=== PATIENT | male | born 1955 | race American Indian/Alaskan Native ===

== ENCOUNTER 2016-10-27 12:02 | Inpatient (IN) | payer OTHER ==
[2016-10-27] MEDS ORDERED: SODIUM CHLORIDE 0.9% 500 ML INFUS.BAG IV ONE ×3 (12:36→15:22)
--- NOTE | 2016-10-27 12:43 | PDOC ---
History of Present Illness - General History Source: Patient, Family Exam Limitations: No Limitations - History of Present Illness Initial Comments: 10/27/16 12:57 The patient is a 61-year-old man, accompanied by family with a significant past medical history of hypertension, hypercholesterolemia, coronary artery disease, diabetes mellitus, benign prostate hyperplasia, recently diagnosed with colon Ca s/p recent low anterior rectosigmoid colon resection, for colon cancer, done 10/14/[address] [facility], [place]; now has a diverting colostomy who presents to the emergency department for further evaluation of loss of consciousness. As per patient's family, the patient has been noted to have a decreased appetite and lethargic for the past three days. Patient fell off his bed last night and lost consciousness. No head injury. While getting ready for a follow-up appointment, this morning, he lost consciousness while walking down the stairs. Patient proceeded to go to his appointment with his surgeon, where he had carmel and Abad-Henley drain removed, however the patient lost consciousness again during his appointment. He was able to go home with his family. As per patient, he experiences slight abdominal discomfort, nausea and vomiting and heartburn only when vomiting. He denies blood in his episodes of emesis and in his colostomy bag. He also states that his colostomy bag has been functioning. No recent fever, chills. He denies chest pain, cough, shortness of breath, headache. Allergies: None Known Pas Surgical History: Stent placement x2. Colon Ca resection. Social History: No tobacco, ETOH and recreational drug use. Primary Care Physician: Dr. Elliott Parham [phone] Remainder of the review of systems is negative. <Christina Mcduffie - Last Filed: 10/27/16 14:25> <Iris Bryan - Last Filed: 10/27/16 19:58> - General Chief Complaint: Syncope/Near Syncope Stated Complaint: DEHYDRATIONL, WEAKNESS Time Seen by Provider: 10/27/16 12:25 Past History <Christina Mcduffie - Last Filed: 10/27/16 14:25> - Past Medical History Cancer: Yes (COLON CA) Cardiac Disorders: Yes (CAD) HTN: Yes Hypercholesterolemia: Yes Other medical history: BPH - Surgical History Abdominal Surgery: Yes (COLON CA RESECTION) Cardiac Surgery: Yes (STENT X 2) - Psycho/Social/Smoking Cessation Hx Anxiety: No Suicidal Ideation: No Smoking History: Never smoked Have you smoked in the past 12 months: No Information on smoking cessation initiated: No Hx Alcohol Use: No Drug/Substance Use Hx: No Substance Use Type: None <Iris Bryan - Last Filed: 10/27/16 19:58> - Past Medical History Allergies/Adverse Reactions: Allergies Allergy/AdvReac Type Severity Reaction Status Date / Time No Known Allergies Allergy Verified 10/27/16 12:13 Home Medications: Ambulatory Orders Atorvastatin Ca [Lipitor] 40 mg PO HS 10/27/16 Carvedilol [Coreg] 12.5 mg PO BID 10/27/16 Linagliptin/Metformin HCl [Jentadueto 2.5 mg-850 mg Tab] 1 each PO BID 10/27/16 Olmesartan/Amlodipin/Hcthiazid [Tribenzor 20-5-12.5 mg Tablet] 1 each PO DAILY 10/27/16 Pilocarpine 0.5% [Pilostat 0.5% -] 1 drop OP TID 10/27/16 Silodosin [Rapaflo] 8 mg PO DAILY 10/27/16 Review of Systems - Review of Systems Able to Perform ROS?: Yes Comments:: 10/27/16 12:57 12 point review of systems is as per history of present illness and otherwise negative. <Christina Mcduffie - Last Filed: 10/27/16 14:25> *Physical Exam - Vital Signs Last Vital Signs Temp Pulse Resp BP Pulse Ox 98.0 F 80 18 87/47 100 10/27/16 12:15 10/27/16 12:15 10/27/16 12:15 10/27/16 12:15 10/27/16 12:15 <Christina Mcduffie - Last Filed: 10/27/16 14:25> - Vital Signs Last Vital Signs Temp Pulse Resp BP Pulse Ox 98.0 F 80 18 87/47 100 10/27/16 12:15 10/27/16 12:15 10/27/16 12:15 10/27/16 12:15 10/27/16 12:15 - Physical Exam Comments: 10/27/16 12:39 Physical exam Last Vital Signs Temp Pulse Resp BP Pulse Ox 98.0 F 80 18 87/47 100 10/27/16 12:15 10/27/16 12:15 10/27/16 12:15 10/27/16 12:15 10/27/16 12:15 GENERAL: The patient is awake, alert, and appears very dehydrated HEAD: Normal with no signs of trauma. EYES: Sclera anicteric ENT: Mucous membranes are very dry NECK: Normal range of motion, supple LUNGS: Breath sounds equal, clear to auscultation bilaterally. No wheezes, and no crackles. HEART: Regular rate and rhythm, normal S1 and S2 without murmur, rub or gallop. ABDOMEN: The abdomen is soft, with normal bowel sounds There is a healing surgical scar, and a right sided colostomy The abdomen is completely soft and nontender EXTREMITIES: Normal range of motion, no edema. No clubbing or cyanosis. No cords, erythema, or tenderness. There is no calf tenderness or swelling NEUROLOGICAL: Cranial nerves II through XII grossly intact. Normal speech, normal gait. PSYCH: Normal mood, normal affect. SKIN: Warm, Dry, normal turgor, no rashes or lesions noted. <Iris Bryan - Last Filed: 10/27/16 19:58> ED Treatment Course - LABORATORY CBC & Chemistry Diagram: 10/27/16 12:50 10/27/16 12:50 - ADDITIONAL ORDERS Additional order review: 10/27/16 12:50 RBC 5.05 MCV 77.7 L MCHC 32.8 RDW 16.1 H MPV 7.6 - Medications Given in the ED: ED Medications Discontinued Medications Generic Name Dose Route Start Last Admin Trade Name Freq PRN Reason Stop Dose Admin Sodium Chloride 1,000 ml 10/27/16 12:36 10/27/16 12:46 Normal Saline - IV 10/27/16 12:37 1,000 ml ONCE ONE Administration <Christina Mcduffie - Last Filed: 10/27/16 14:25> - LABORATORY CBC & Chemistry Diagram: 10/27/16 16:27 10/27/16 16:27 - RADIOLOGY Radiology Studies Ordered: Category Date Time Status CHEST X-RAY PORTABLE* [RAD] Stat Radiology 10/27/16 12:36 Ordered <Iris Bryan - Last Filed: 10/27/16 19:58> Medical Decision Making - Critical Care Time Total Critical Care Time (minutes): 45 Critical Care Statement: The care of this patient involved high complexity decision making to prevent further life threatening deterioration of the patient 's condition and/or to evalute & treat vital organ system(s) failure or risk of failure. - Medical Decision Making 10/27/16 12:37 64-year-old male PMH DM, HTN, HPL, had a low anterior rectosigmoid colon resection, for colon cancer, done 10/14/16, and he now has a diverting colostomy He did well post surgery, however since Wednesday, he has not been eating or drinking, and he has been vomiting whenever he tries to eat or drink He is passing stool in the colostomy bag He passed out last night, and he was in his surgeon's office today (he had his carmel removed, and had a Abad-Henley drain removed), and passed out in the doctor's office today He feels very dehydrated He has been vomiting, without blood or black tarry vomitus There is no blood in his colostomy bag He states that he just feels nauseated and has been unable to eat or drink He denies any abdominal pain, he denies any chest pain He has had some heartburn He denies any fevers or chills He denies any other complaints time 10/27/16 12:43 Patient appears extremely dehydrated, and is hypotensive He is not tachycardic, most likely because he is on a beta akilah 10/27/16 13:50 Laboratory Results - last 24 hr 10/27/16 10/27/16 10/27/16 12:50 12:50 12:50 WBC 12.9 H RBC 5.05 Hgb 12.9 Hct 39.3 MCV 77.7 L MCHC 32.8 RDW 16.1 H Plt Count 376 MPV 7.6 Sodium 123 L* Potassium 5.4 H Chloride 74 L Carbon Dioxide 24 Anion Gap 26 H BUN 72 H Creatinine 12.7 H* Creat Clearance w eGFR 4.04 Random Glucose 133 H Calcium 9.6 Magnesium 2.2 Total Bilirubin 0.5 AST 17 ALT 36 Alkaline Phosphatase 110 Creatine Kinase 90 Troponin I < 0.02 B-Natriuretic Peptide 115.81 Total Protein 8.9 H Albumin 4.0 Lipase 510 H 10/27/16 13:54 Patient in acute renal failure, with BUN 72/creatinine 12.7, with probably prerenal component to that Also lipase elevated, will check an ultrasound of the right upper quadrant and kidney/bladder ultrasound Potassium 5.4, mag 2.2 Lactic acid and serum acetone pending 10/27/16 13:56 Chest x-ray-NAD EKG Normal sinus rhythm 81, normal axis Normal AV and IV conduction time Prolonged QT, with a QTC of 485 Somewhat peaked T waves Nonspecific ST-T s There is no old EKG available for comparison at this time 10/27/16 14:15 case d/w with hospitalist-will admit ICU 10/27/16 14:20 Concerned that pts new AODM med in conjunction with dehydration and pre-renal azotemia my have contributed to the ARF 10/27/16 15:21 Lactic acid 5.0 2Liters of saline in,will continue third liter 10/27/16 15:54 CT scan of the abdomen and pelvis without contrast No signs of bowel obstruction no free air or free fluid No evidence of appendicitis diverticulitis or colitis Normal region of colostomy Mild distention of stomach with fluid in the stomach, and no signs of gastric outlet obstruction or gastric wall thickening There is fluid in the third portion of the duodenum, with no signs of heart regular and all infiltration Ultrasound No hydronephrosis in the kidneys There is a shadowing calcified stone There is a cyst Normal gallbladder Pancreas obscured by overlying gas and not visualized Saldivar catheter placed-tiny amount of urine in Saldivar Case discussed with Dr. Kumari, accepts patient to ICU Dr. Belle-nephrology paged Patient now on third liter of normal saline-will repeat lactic acid Nephrology at bedside, hospitalist at bedside will admit ICU, will need repeat lactic acid and repeat bloodwork <Iris Bryan - Last Filed: 10/27/16 19:58> *DC/Admit/Observation/Transfer - Attestations Scribe Attestion: 10/27/16 12:57 Documentation prepared by Christina Mcduffie, acting as medical management trainer for Iris Bryan MD. <Christina Mcduffie - Last Filed: 10/27/16 14:25> - Discharge Dispostion Admit: Yes <Iris Bryan - Last Filed: 10/27/16 19:58> Diagnosis at time of Disposition: Acute renal failure, Dehydration, Hyponatremia, Acidosis - Referrals
[2016-10-27 12:55] LABS: MCH 25.5 pg (25.7-33.7); MCHC 32.8 g/dl (32.0-35.9); MEAN CELL VOLUME 77.7 fl (80-96); MEAN PLT VOLUME 7.6 fl (7.5-11.1); PLATELET COUNT 376 K/MM3 (134-434); RDW 16.1 % (11.9-15.9); WHITE BLOOD COUNT 12.9 K/mm3 (4.0-10.0)
[2016-10-27 13:14] LABS: ANION GAP 26 (8-16); BILIRUBIN,TOTAL 0.5 mg/dL (0.2-1.0); CALCIUM 9.6 mg/dL (8.5-10.1); CO2 24 mmol/L (21-32); GLUCOSE,RANDOM 133 mg/dL (74-106); MAGNESIUM 2.2 mg/dL (1.8-2.4); SGOT/AST 17 U/L (15-37); SGPT/ALT 36 U/L (12-78); TOT PROT 8.9 g/dl (6.4-8.2)
[2016-10-27 13:20] LABS: ALK PHOS 110 U/L (45-117); TROPONIN I < 0.02 ng/ml (0.00-0.05)
[2016-10-27] MEDS ORDERED: ONDANSETRON 4 MG/2 ML VIAL ONE (13:30)
[2016-10-27] MEDS ORDERED: FAMOTIDINE 20 MG/50 ML IVPB 50 ML IVPB ONE ×2 (13:30→13:35)
[2016-10-27] MEDS ORDERED: ONDANSETRON 4 MG/2 ML VIAL IVPB ONE (13:35)
[2016-10-27 13:47] LABS: CREATININE 12.7 mg/dL (0.7-1.3)
--- NOTE | 2016-10-27 15:37 | EKG ---
Test Reason : Blood Pressure : / mmHG Vent. Rate : 081 BPM Atrial Rate : 081 BPM P-R Int : 160 ms QRS Dur : 084 ms QT Int : 418 ms P-R-T Axes : 050 038 070 degrees QTc Int : 485 ms NORMAL SINUS RHYTHM PROLONGED QT ABNORMAL ECG NO PREVIOUS ECGS AVAILABLE Confirmed by DOMENIC CHAPA MD ([id number]) on 10/27/2016 3:36:48 PM Referred By: Confirmed By:DOMENIC CHAPA MD
[2016-10-27 16:07] LABS: URINE APPEARANCE CLEAR; URINE BILIRUBIN 2+ (NEGATIVE); URINE BLOOD 2+ (NEGATIVE); URINE COLOR YELLOW; URINE GLUCOSE (UA) TRACE (NEGATIVE); URINE KETONE TRACE (NEGATIVE); URINE LEUK ESTERASE TRACE (NEGATIVE); URINE NITRITE NEGATIVE (NEGATIVE); URINE PROTEIN 2+ (NEGATIVE); URINE UROBILINOGEN 0.2 E.U/dl E.U./dl (0.2-1.0)
--- NOTE | 2016-10-27 16:26 | PN ---
Progress Note, Physician - Objective Vital Signs: Vital Signs Temperature 98.6 F 10/27/16 15:29 Pulse Rate 90 10/27/16 15:29 Respiratory Rate 20 10/27/16 15:29 Blood Pressure 102/67 10/27/16 15:29 O2 Sat by Pulse Oximetry (%) 100 10/27/16 15:29
--- NOTE | 2016-10-27 16:33 | PN ---
Teaching Attending Note Name of Resident: Stephen Elliott ATTENDING PHYSICIAN STATEMENT I saw and evaluated the patient. I reviewed the resident's note and discussed the case with the resident. I agree with the resident's findings and plan as documented. SUBJECTIVE: 61 M, recent rectosigmoid resection 10/14/16 at [facility] for Adenocarcinoma of the colon (+ LN). Additional history of hypertension, hypercholesterolemia, coronary artery disease, diabetes mellitus, and benign prostate hyperplasia. According to the family, patient "lowered himself to the ground from his bed" on Wednesday. He pre-syncopal in his doctors office earlier today. His family placed him in their car and drove him to the ER. Reports no urine output for almost 2 days. No travel history or sick contacts. Poor oral intake. Has been vomiting. No diarrhea. Intake & Output 10/24/16 10/25/16 10/26/16 10/27/16 23:59 23:59 23:59 23:59 Output Total 5 Balance -5 Weight 155 lb Last Vital Signs Temp Pulse Resp BP Pulse Ox 98.6 F 90 20 102/67 100 10/27/16 15:29 10/27/16 15:29 10/27/16 15:29 10/27/16 15:29 10/27/16 15:29 GENERAL: Awake, alert, NAD HEAD: Normal with no signs of trauma. EYES: Sclera anicteric ENT: Mucous membranes are very dry NECK: Normal range of motion, supple LUNGS: Clear to auscultation bilaterally. HEART: Regular rate and rhythm, normal S1 and S2 without murmur. ABDOMEN: Soft, (+) BS, well healing surgical scar, and a right sided colostomy EXTREMITIES: No edema. NEUROLOGICAL: Non-focal PSYCH: Normal mood, normal affect. SKIN: Warm, Dry, no rashes or lesions noted. Laboratory Results - last 24 hr 10/27/16 10/27/16 10/27/16 12:15 12:50 12:50 WBC 12.9 H RBC 5.05 Hgb 12.9 Hct 39.3 MCV 77.7 L MCHC 32.8 RDW 16.1 H Plt Count 376 MPV 7.6 Sodium 123 L* Potassium 5.4 H Chloride 74 L Carbon Dioxide 24 Anion Gap 26 H BUN 72 H Creatinine 12.7 H* Creat Clearance w eGFR 4.04 Random Glucose 133 H Lactic Acid 5.070 H* Calcium 9.6 Magnesium Total Bilirubin 0.5 AST 17 ALT 36 Alkaline Phosphatase 110 Creatine Kinase 90 Troponin I < 0.02 B-Natriuretic Peptide Total Protein 8.9 H Albumin 4.0 Lipase Urine Color Urine Appearance Urine pH Ur Specific [place] Urine Protein Urine Glucose (UA) Urine Ketones Urine Blood Urine Nitrite Urine Bilirubin Urine Urobilinogen Ur Leukocyte Esterase Ur Random Sodium Ur Random Potassium Ur Random Chloride Acetone, Qual 10/27/16 10/27/16 10/27/16 12:50 13:38 16:00 WBC RBC Hgb Hct MCV MCHC RDW Plt Count MPV Sodium Potassium Chloride Carbon Dioxide Anion Gap BUN Creatinine Creat Clearance w eGFR Random Glucose Lactic Acid Calcium Magnesium 2.2 Total Bilirubin AST ALT Alkaline Phosphatase Creatine Kinase Troponin I B-Natriuretic Peptide 115.81 Total Protein Albumin Lipase 510 H Urine Color Yellow Urine Appearance Clear Urine pH 5.0 Ur Specific [place] >= 1.030 Urine Protein 2+ H Urine Glucose (UA) Trace H Urine Ketones Trace H Urine Blood 2+ H Urine Nitrite Negative Urine Bilirubin 2+ H Urine Urobilinogen 0.2 e.u/dl Ur Leukocyte Esterase Trace H Ur Random Sodium Ur Random Potassium Ur Random Chloride Acetone, Qual Negative 10/27/16 16:00 WBC RBC Hgb Hct MCV MCHC RDW Plt Count MPV Sodium Potassium Chloride Carbon Dioxide Anion Gap BUN Creatinine Creat Clearance w eGFR Random Glucose Lactic Acid Calcium Magnesium Total Bilirubin AST ALT Alkaline Phosphatase Creatine Kinase Troponin I B-Natriuretic Peptide Total Protein Albumin Lipase Urine Color Urine Appearance Urine pH Ur Specific [place] Urine Protein Urine Glucose (UA) Urine Ketones Urine Blood Urine Nitrite Urine Bilirubin Urine Urobilinogen Ur Leukocyte Esterase Ur Random Sodium 23 Ur Random Potassium 17.6 Ur Random Chloride 15 Acetone, Qual PLAN: Aggressive IVF -> I suspect severe hypovolemic shock rather than infectious/ sepsis Follow lactic acid level Strict I&O O2 as needed PO as tolerated Check orthostatics VTE prophylaxis Would monitor off ABX for now as there is no clear source or indication of an infectious process ICU monitoring Thank you. Dr Kumari CCTime 35" Problem List - Problems (1) Acidosis Code(s): E87.2 - ACIDOSIS (2) Acute renal failure Code(s): N17.9 - ACUTE KIDNEY FAILURE, UNSPECIFIED (3) Dehydration Code(s): E86.0 - DEHYDRATION (4) Hyponatremia Code(s): E87.1 - HYPO-OSMOLALITY AND HYPONATREMIA (5) Colon cancer Code(s): C18.9 - MALIGNANT NEOPLASM OF COLON, UNSPECIFIED
--- NOTE | 2016-10-27 16:34 | CONSULT ---
Consult Consult Specialty:: Pulm/CCM Referred by:: ED Reason for Consultation:: hypotension/acute renal failure - History of Present Illness Chief Complaint: nausea vomiting anuria History of Present Illness: 61M with daughter and PMH HTN CAD s/p stent x2 DM BPH HLD colon ca s/p low anterior resection on 10/14/2016 at [facility] with as diverting colostomy with plans to reverse him in 6 months presents to the ED with a chief complaint of nausea vomiting diarrhea. now has a diverting colostomy who presents to the emergency department for further evaluation of faainting. As per patient's family, the patient has been noted to have a decreased appetite and lethargic for the past three days. Patient fell off his bed last night and lost consciousness. No head injury. While getting ready for a follow-up appointment, this morning, he lost consciousness while walking down the stairs. Patient proceeded to go to his appointment with his surgeon, where he had carmel and Abad-Henley drain removed, however the patient lost consciousness again during his appointment. He was able to go home with his family. As per patient, he experiences slight abdominal discomfort, nausea and vomiting and heartburn only when vomiting. He denies blood in his episodes of emesis and in his colostomy bag. He also states that his colostomy bag has been functioning with good output and is mostly solid. No recent fever, chills. He denies chest pain, cough, shortness of breath, headache. He states he has had good oral intake with solid food but not with liquids. He states he has not urinated for 2 days. In ED patient noted to be in acute renal failure hyponatremic and hyperkalemic Allergies: None Known Pas Surgical History: Stent placement x2. Colon Ca resection. Social History: No tobacco, ETOH and recreational drug use. Primary Care Physician: Dr. Elliott Parham [phone] - History Source History Provided By: Patient, Family Member, Medical Record Limitations to Obtaining History: No Limitations - Past Medical History Cardio/Vascular: Yes: CAD, HTN, Hyperlipdemia Gastrointestinal: Yes: Other (GI cancer ) Renal/: Yes: BPH Endocrine: Yes: Diabetes Mellitus - Past Surgical History Past Surgical History: Yes: Colostomy (low anterior resection ) - Alcohol/Substance Use Hx Alcohol Use: No - Smoking History Smoking history: Never smoked Have you smoked in the past 12 months: No Home Medications - Allergies Allergies/Adverse Reactions: Allergies Allergy/AdvReac Type Severity Reaction Status Date / Time No Known Allergies Allergy Verified 10/27/16 12:13 - Home Medications Home Medications: Ambulatory Orders Atorvastatin Ca [Lipitor] 40 mg PO HS 10/27/16 Carvedilol [Coreg] 12.5 mg PO BID 10/27/16 Linagliptin/Metformin HCl [Jentadueto 2.5 mg-850 mg Tab] 1 each PO BID 10/27/16 Olmesartan/Amlodipin/Hcthiazid [Tribenzor 20-5-12.5 mg Tablet] 1 each PO DAILY 10/27/16 Pilocarpine 0.5% [Pilostat 0.5% -] 1 drop OP TID 10/27/16 Silodosin [Rapaflo] 8 mg PO DAILY 10/27/16 Family Disease History - Family Disease History Family History: Denies Review of Systems - Review of Systems Constitutional: reports: No Symptoms Eyes: reports: No Symptoms HENT: reports: No Symptoms Neck: reports: No Symptoms Cardiovascular: reports: No Symptoms Respiratory: reports: No Symptoms Gastrointestinal: reports: Abdominal Pain, Vomiting Musculoskeletal: reports: No Symptoms Integumentary: reports: No Symptoms Neurological: reports: Syncope Physical Exam Vital Signs: Vital Signs Temperature 98.6 F 10/27/16 15:29 Pulse Rate 90 10/27/16 15:29 Respiratory Rate 20 10/27/16 15:29 Blood Pressure 102/67 10/27/16 15:29 O2 Sat by Pulse Oximetry (%) 100 10/27/16 15:29 Constitutional: Yes: Well Nourished, Calm Eyes: Yes: Conjunctiva Clear HENT: Yes: Atraumatic, Normocephalic Neck: Yes: Supple, Trachea Midline, Other (dry mucous membranes) Cardiovascular: Yes: Regular Rate and Rhythm Respiratory: Yes: Regular, CTA Bilaterally Gastrointestinal: Yes: Normal Bowel Sounds, Soft, Other (appropriate incisional tenderness otherwise soft. ostomy pink and patent on digital exam. ostomy visibly functioning) Renal/: Yes: Anuria, Other (no urine in lópez) Edema: No ...Motor Strength: WNL Imaging - Results Chest X-ray: Report Reviewed, Image Reviewed Cat Scan: Report Reviewed, Image Reviewed Ultrasound: Report Reviewed, Image Reviewed EKG: Report Reviewed, Image Reviewed Problem List - Problems (1) Acute renal failure Assessment/Plan: likely secondary to severe dehydration Nephrology consult hold nephrotoxic drugs such as MARICARMEN/ARB renally dose all medications fluids Code(s): N17.9 - ACUTE KIDNEY FAILURE, UNSPECIFIED (2) Colon cancer Assessment/Plan: s/p low anterior resection being followed by surgeon and seen today by her. no active issues Code(s): C18.9 - MALIGNANT NEOPLASM OF COLON, UNSPECIFIED Qualifiers: Colon location: sigmoid Qualified Code(s): C18.7 - Malignant neoplasm of sigmoid colon (3) Dehydration Assessment/Plan: will need fluid boluses patient is anuric at this time from a combination of renal failure and dehydration maintenance fluids recheck BMP Code(s): E86.0 - DEHYDRATION (4) Hyponatremia Assessment/Plan: getting normal saline not to increase sodium by 0.5 meq/hr or >10meq in 24 hrs recheck BMP Code(s): E87.1 - HYPO-OSMOLALITY AND HYPONATREMIA (5) Lactic acid acidosis Assessment/Plan: trend lactate fluid boluses Code(s): E87.2 - ACIDOSIS (6) High anion gap metabolic acidosis Assessment/Plan: recheck BMP correct lactic acidosis Code(s): E87.2 - ACIDOSIS (7) Hyperkalemia, diminished renal excretion Assessment/Plan: likely from renal failure recheck BMP may need hyperkalemia cocktail Code(s): E87.5 - HYPERKALEMIA (8) Hypertension Assessment/Plan: likely from renal failure repeat BMP pending may need hyperkalemia cocktail Code(s): I10 - ESSENTIAL (PRIMARY) HYPERTENSION Qualifiers: Hypertension type: essential hypertension Qualified Code(s): I10 - Essential (primary) hypertension (9) Hyperlipidemia Assessment/Plan: restart statin when safe Code(s): E78.5 - HYPERLIPIDEMIA, UNSPECIFIED Qualifiers: Hyperlipidemia type: unspecified Qualified Code(s): E78.5 - Hyperlipidemia, unspecified (10) Diabetes Assessment/Plan: BG ACHS ISS hold metformin Code(s): E11.9 - TYPE 2 DIABETES MELLITUS WITHOUT COMPLICATIONS Qualifiers: Diabetes mellitus type: type 2
[2016-10-27 16:37] LABS: URINE RBC 4 /hpf (0-3); URINE WBC 29 /hpf (3-5)
[2016-10-27 16:41] LABS: BASOPHIL 1.4 % (0-2.0); EOSINOPHIL 0.1 % (0-4.5); MCH 25.4 pg (25.7-33.7); MCHC 32.7 g/dl (32.0-35.9); MEAN CELL VOLUME 77.7 fl (80-96); MEAN PLT VOLUME 7.5 fl (7.5-11.1); NEUTROPHILS 69.1 % (42.8-82.8); PLATELET COUNT 315 K/MM3 (134-434); RDW 16.2 % (11.9-15.9); WHITE BLOOD COUNT 10.1 K/mm3 (4.0-10.0)
--- NOTE | 2016-10-27 17:01 | HP ---
CHIEF COMPLAINT: Syncope, Dehydration, Weakness PCP: Elliott Parham HISTORY OF PRESENT ILLNESS: This patient is a 61 year old male, with PMH of hypertension, hypercholesterolemia, coronary artery disease, diabetes mellitus, benign prostate hyperplasia, recently diagnosed with colon CA s/p low anterior rectosigmoid colon resection (10/14/16) at [facility]. Presented to the ED after three syncopal episode: (1) at home the patient fell off his bed, (2) while walking down the stairs on his way to his follow up appointment, and (3) at his surgical followup today when he had his carmel and ASHKAN drain removed. His surgical MD advised the family to take him to the ED. Family stated patient was eating, had good appetite and colostomy bag was functioning after discharged home from surgery however, appetite has significantly decreased starting on Wednesday (10/24/16) four days ago. Pt reports since he has not been eating or drinking, he experiences slight abdominal discomfort, nausea and heartburn, denies blood in emesis or colostomy bag. Patient states he has not urinated for 2 days ER course was notable for: (1) BUN: 72, Cr: 12.7, no urine output after lópez placement, consult at bedside. (2) URINE WBC 29, Ceftriaxone ordered (3) EMS reported blood pressure 87/47 on arrival, 3 Liters of Normal Saline given, BP improved to 102/67. Recent Travel: no travel history or sick contacts. PAST MEDICAL HISTORY: Cardiac: hypertension, hypercholesterolemia, coronary artery disease, Endocrine: diabetes mellitus, Renal/: benign prostate hyperplasia Gastrointestinal: recently diagnosed with colon CA s/p low anterior rectosigmoid colon resection (10/14/16) at [facility] PAST SURGICAL HISTORY: - Stent placement x2. - Colon Ca resection (low anterior rectosigmoid colon resection (10/14/16) at [facility]) Social History: Smoking: none Alcohol: Occasional ETOH Drugs: none Family History: - Father in 30's from unknown cause. - Mother and daughter alive and well. Allergies - No Known Allergies Allergy (Verified 10/27/16 12:13) HOME MEDICATIONS: Medication Instructions Recorded Atorvastatin Ca [Lipitor] 40 mg PO HS 10/27/16 Carvedilol [Coreg] 12.5 mg PO BID 10/27/16 Linagliptin/Metformin HCl 1 each PO BID 10/27/16 [Jentadueto 2.5 mg-850 mg Tab] Olmesartan/Amlodipin/Hcthiazid 1 each PO DAILY 10/27/16 [Tribenzor 20-5-12.5 mg Tablet] Pilocarpine 0.5% [Pilostat 0.5% -] 1 drop OP TID 10/27/16 Silodosin [Rapaflo] 8 mg PO DAILY 10/27/16 REVIEW OF SYSTEMS CONSTITUTIONAL: generalized weakness, loss of appetitie, malaise Absent: fever, chills, diaphoresis, weight change HEENT: Absent: rhinorrhea, nasal congestion, throat pain, throat swelling, difficulty swallowing, mouth swelling, ear pain, eye pain, visual changes CARDIOVASCULAR: Absent: chest pain, syncope, palpitations, irregular heart rate, lightheadedness , peripheral edema RESPIRATORY: Absent: cough, shortness of breath, dyspnea with exertion, orthopnea, wheezing, stridor, hemoptysis GASTROINTESTINAL: Present: heartburn Absent: abdominal pain, abdominal distension, nausea, vomiting, diarrhea, constipation, melena, hematochezia GENITOURINARY: Present: anuric x 2 days Absent: dysuria, frequency, urgency, hesitancy, hematuria, flank pain, genital pain MUSCULOSKELETAL: Absent: myalgia, arthralgia, joint swelling, back pain, neck pain SKIN: Absent: rash, itching, pallor HEMATOLOGIC/IMMUNOLOGIC: Absent: easy bleeding, easy bruising, lymphadenopathy, frequent infections ENDOCRINE: Absent: unexplained weight gain, unexplained weight loss, heat intolerance, cold intolerance NEUROLOGIC: three syncopal episodes over past 24 hours Absent: headache, focal weakness or paresthesias, dizziness, unsteady gait, seizure, mental status changes, bladder or bowel incontinence PSYCHIATRIC: calm, no symptoms Absent: anxiety, depression, suicidal or homicidal ideation, hallucinations. PHYSICAL EXAMINATION Vital Signs - 24 hr 10/27/16 15:29 Temperature 98.6 F Pulse Rate [ 90 Apical] Respiratory 20 Rate Blood Pressure 102/67 [Left Arm] O2 Sat by Pulse 100 Oximetry (%) GENERAL: Awake, alert, and fully oriented, in no acute distress. HEAD: Normal with no signs of trauma. EYES: Pupils equal, round and reactive to light, extraocular movements intact, sclera anicteric, conjunctiva clear. No ptosis EARS, NOSE, THROAT: Ears normal, nares patent, oropharynx clear without exudates. Moist mucous membranes. NECK: Normal range of motion, supple without lymphadenopathy, JVD, or masses. LUNGS: Breath sounds equal, clear to auscultation bilaterally. No wheezes, and no crackles. No accessory muscle use. HEART: Regular rate and rhythm, normal S1 and S2 without murmur, rub or gallop. ABDOMEN: Colostomy present, brown liquid stool in bag. Soft, nontender, not distended, normoactive bowel sounds, no guarding, no rebound, no masses. No hepatomegaly or splenomegaly. MUSCULOSKELETAL: Normal range of motion at all joints. No bony deformities or tenderness. No CVA tenderness. UPPER EXTREMITIES: No cyanosis. No clubbing. Cap refill <2 seconds. No peripheral edema. LOWER EXTREMITIES: No calf tenderness. No peripheral edema. NEUROLOGICAL: Cranial nerves II-XII intact. Normal speech. Gait not assessed. PSYCHIATRIC: Cooperative. Good eye contact. Appropriate mood and affect. SKIN: Warm, dry, normal turgor, no rashes or lesions noted. Laboratory Results - last 24 hr 10/27/16 10/27/16 10/27/16 12:15 12:50 12:50 WBC 12.9 H RBC 5.05 Hgb 12.9 Hct 39.3 MCV 77.7 L MCHC 32.8 RDW 16.1 H Plt Count 376 MPV 7.6 Neutrophils % Lymphocytes % Monocytes % Eosinophils % Basophils % Sodium 123 L* Potassium 5.4 H Chloride 74 L Carbon Dioxide 24 Anion Gap 26 H BUN 72 H Creatinine 12.7 H* Creat Clearance w eGFR 4.04 Random Glucose 133 H Lactic Acid 5.070 H* Calcium 9.6 Magnesium Total Bilirubin 0.5 AST 17 ALT 36 Alkaline Phosphatase 110 Creatine Kinase 90 Troponin I < 0.02 B-Natriuretic Peptide Total Protein 8.9 H Albumin 4.0 Lipase Urine Color Urine Appearance Urine pH Ur Specific [place] Urine Protein Urine Glucose (UA) Urine Ketones Urine Blood Urine Nitrite Urine Bilirubin Urine Urobilinogen Ur Leukocyte Esterase Urine RBC Urine WBC Ur Epithelial Cells Ur Random Sodium Ur Random Potassium Ur Random Chloride Acetone, Qual 10/27/16 10/27/16 10/27/16 12:50 13:38 16:00 WBC RBC Hgb Hct MCV MCHC RDW Plt Count MPV Neutrophils % Lymphocytes % Monocytes % Eosinophils % Basophils % Sodium Potassium Chloride Carbon Dioxide Anion Gap BUN Creatinine Creat Clearance w eGFR Random Glucose Lactic Acid Calcium Magnesium 2.2 Total Bilirubin AST ALT Alkaline Phosphatase Creatine Kinase Troponin I B-Natriuretic Peptide 115.81 Total Protein Albumin Lipase 510 H Urine Color Yellow Urine Appearance Clear Urine pH 5.0 Ur Specific [place] >= 1.030 Urine Protein 2+ H Urine Glucose (UA) Trace H Urine Ketones Trace H Urine Blood 2+ H Urine Nitrite Negative Urine Bilirubin 2+ H Urine Urobilinogen 0.2 e.u/dl Ur Leukocyte Esterase Trace H Urine RBC 4 Urine WBC 29 Ur Epithelial Cells Rare Ur Random Sodium Ur Random Potassium Ur Random Chloride Acetone, Qual Negative 10/27/16 10/27/16 10/27/16 16:00 16:27 16:27 WBC RBC Hgb Hct MCV MCHC RDW Plt Count MPV Neutrophils % Lymphocytes % Monocytes % Eosinophils % Basophils % Sodium Cancelled Potassium Cancelled Chloride Cancelled Carbon Dioxide Cancelled Anion Gap Cancelled BUN Cancelled Creatinine Cancelled Creat Clearance w eGFR Random Glucose Cancelled Lactic Acid 5.207 H* Calcium Cancelled Magnesium Total Bilirubin AST ALT Alkaline Phosphatase Creatine Kinase Troponin I B-Natriuretic Peptide Total Protein Albumin Lipase Urine Color Urine Appearance Urine pH Ur Specific [place] Urine Protein Urine Glucose (UA) Urine Ketones Urine Blood Urine Nitrite Urine Bilirubin Urine Urobilinogen Ur Leukocyte Esterase Urine RBC Urine WBC Ur Epithelial Cells Ur Random Sodium 23 Ur Random Potassium 17.6 Ur Random Chloride 15 Acetone, Qual 10/27/16 10/27/16 16:27 16:27 WBC 10.1 H RBC 4.35 Hgb 11.1 L D Hct 33.8 L MCV 77.7 L MCHC 32.7 RDW 16.2 H Plt Count 315 MPV 7.5 Neutrophils % 69.1 Lymphocytes % 18.2 Monocytes % 11.2 H Eosinophils % 0.1 Basophils % 1.4 Sodium 124 L* Potassium 6.3 H* Chloride 89 L D Carbon Dioxide 20 L Anion Gap 15 BUN 70 H Creatinine 11.5 H* Creat Clearance w eGFR 4.54 Random Glucose 107 H Lactic Acid Calcium 7.8 L Magnesium 1.8 Total Bilirubin 0.4 AST 13 L D ALT 29 Alkaline Phosphatase 86 D Creatine Kinase Troponin I B-Natriuretic Peptide Total Protein 7.2 Albumin 3.1 L D Lipase Urine Color Urine Appearance Urine pH Ur Specific [place] Urine Protein Urine Glucose (UA) Urine Ketones Urine Blood Urine Nitrite Urine Bilirubin Urine Urobilinogen Ur Leukocyte Esterase Urine RBC Urine WBC Ur Epithelial Cells Ur Random Sodium Ur Random Potassium Ur Random Chloride Acetone, Qual Current Medications Generic Name Dose Route Start Last Admin Trade Name Selena PRN Reason Stop Dose Admin Atorvastatin Calcium 40 mg 10/27/16 22:00 Lipitor - PO HS JESSICA Ceftriaxone Sodium 1 gm 10/27/16 17:15 10/27/16 17:42 Rocephin 1gm Ivpb (Pre-Docked) IVPB 1 gm DAILY JESSICA Administration Chlorhexidine Gluconate 1 applic 10/27/16 22:00 Hibiclens For Decolonization - TP HS JESSICA Heparin Sodium (Porcine) 5,000 unit 10/27/16 22:00 Heparin - SQ BID JESSICA Sodium Bicarbonate 75 meq/ 1,075 mls @ 125 mls/hr 10/27/16 17:45 10/27/16 18:30 Sodium Chloride IV 125 mls/hr Q8H JESSICA Administration Insulin Aspart 1 vial 10/27/16 22:00 Novolog Vial Sliding Scale - SQ ACHS [facility] Protocol Mupirocin 1 applic 10/27/16 22:00 Bactroban Ointment (For Decolonization) - NS 11/01/16 21:59 BID JESSICA Pilocarpine HCl 1 drop 10/27/16 22:00 Pilostat 0.5% - OP TID [facility] ASSESSMENT/PLAN: This a a 64 year old male with PMH of HTN, hypercholesterolemia, CAD (s/p 2 stents), DM, BPH, and recently diagnosed with Colon CA, s/p low anterior recotsigmoid colon resection on 10/14/16 at [facility]. Presented to the ED for further evaluation of loss of consciousness. Pt found to be in acute renal failure. (1) Renal/: Acute renal failure - Likely secondary to severe dehydration - BUN 72 and Creatinine 12.7 - Hold MARICARMEN/ARB, (nephrotoxic drugs) - Renally dose all medications - Aggressive Fluids as per renal - Urine sodium of 23 which is low and consistent with pre-renal disease - Renal Ultrasound reviewed - no acute findings - Pt has increased output from ostomy -surgical consult in place - for shiley placement for emergency dialysis, if needed (discussed with family by Renal MD) . - Strict I/O's (2) Hyperkalemia - K - 6.3 - Likely secondary to renal failure due to dehydration - Calcium Gluconate, D50, Insulin cocktail - Recheck BMP (3) Hyponatremia - IV Fluids NS maintenace - Do NOT increase Na by 0.5 meq/hour or >10 meq in 24 hours - Recheck BMP (4) Lactic Acidosis - IV Fluid bolus - Recheck lactate (5) BPH - - Leukocytosis in the urine: WBC 29 - Ceftriaxone started 1 gm IVPB daily - Hold pilocarpine (6) Gastrointestinal: Colon Cancer s/p resection - Surgical consult - Monitor output - Zofran for nausea/vomiting (7) Endocrine: Diabetes - Hold home PO medication: - Glucose monitoring AC/HS, Insulin control with Insulin Sliding Scale (8) Cardiac: HTN, HLD, CAD - Atorvastatin 40 mg PO HS (9) Prophylaxis - VTE prophylaxis - Heparin 5000u SQ BID (10) Dispo - Admit to ICU Visit type - Emergency Visit Emergency Visit: Yes ED Registration Date: 10/27/16 Care time: The patient presented to the Emergency Department on the above date and was hospitalized for further evaluation of their emergent condition. - New Patient This patient is new to me today: Yes Date on this admission: 10/27/16 - Critical Care Critical Care patient: Yes Total Critical Care Time (in minutes): 120 Critical Care Statement: The care of this patient involved high complexity decision making to prevent further life threatening deterioration of the patient 's condition and/or to evalute & treat vital organ system(s) failure or risk of failure.
[2016-10-27 17:14] LABS: ALBUMIN 3.1 g/dl (3.4-5.0); CALCIUM 7.8 mg/dL (8.5-10.1); MAGNESIUM 1.8 mg/dL (1.8-2.4)
[2016-10-27] MEDS ORDERED: CEFTRIAXONE 1 GM in DEXTROSE 5%-WATER - 50 ML IVPB SCH (17:15)
[2016-10-27 17:17] LABS: BILIRUBIN,TOTAL 0.4 mg/dL (0.2-1.0); TOT PROT 7.2 g/dl (6.4-8.2)
[2016-10-27 17:20] LABS: CREATININE 11.5 mg/dL (0.7-1.3)
--- NOTE | 2016-10-27 17:21 | CONSULT ---
Consult Consult Specialty:: Nephrology Reason for Consultation:: KEANU - History of Present Illness Chief Complaint: decreased appetite and multiple episodes of syncope History of Present Illness: Pt is a 61 year old male with pmhx of colon cancer s/p rectosigmoid colon resection, HTN, hyperlipidemia, DM, BPH and CAD who presents to the ER with several episodes of syncope. He had the colon resection after being diagnosed with colon cancer. The surgery was on Oct 14 of this year. He has had decreased PO intake for the last 4 days. He has felt week and tired. On further questioning he does have increased output from the colostomy. He denies fevers or chills. He has had decreased urine output. He denies history of kidney disease. He denies NSAID use. He is awake and alert. - History Source History Provided By: Patient, Family Member, Medical Record - Past Medical History Cardio/Vascular: Yes: CAD, HTN, Hyperlipdemia Gastrointestinal: Yes: Other (GI cancer ) Renal/: Yes: BPH Endocrine: Yes: Diabetes Mellitus - Past Surgical History Past Surgical History: Yes: Colostomy (low anterior resection ) - Alcohol/Substance Use Hx Alcohol Use: No - Smoking History Smoking history: Never smoked Have you smoked in the past 12 months: No Home Medications - Allergies Allergies/Adverse Reactions: Allergies Allergy/AdvReac Type Severity Reaction Status Date / Time No Known Allergies Allergy Verified 10/27/16 12:13 - Home Medications Home Medications: Ambulatory Orders Atorvastatin Ca [Lipitor] 40 mg PO HS 10/27/16 Carvedilol [Coreg] 12.5 mg PO BID 10/27/16 Linagliptin/Metformin HCl [Jentadueto 2.5 mg-850 mg Tab] 1 each PO BID 10/27/16 Olmesartan/Amlodipin/Hcthiazid [Tribenzor 20-5-12.5 mg Tablet] 1 each PO DAILY 10/27/16 Pilocarpine 0.5% [Pilostat 0.5% -] 1 drop OP TID 10/27/16 Silodosin [Rapaflo] 8 mg PO DAILY 10/27/16 Family Disease History - Family Disease History Family History: Denies Review of Systems - Review of Systems Constitutional: reports: Loss of Appetite, Malaise. denies: Chills, Fever Eyes: reports: No Symptoms HENT: reports: No Symptoms Neck: reports: No Symptoms Cardiovascular: reports: No Symptoms Respiratory: reports: No Symptoms Gastrointestinal: reports: Other (increased output from ostomy) Musculoskeletal: reports: No Symptoms Integumentary: reports: No Symptoms Neurological: reports: No Symptoms Endocrine: reports: No Symptoms Hematology/Lymphatic: reports: No Symptoms Psychiatric: reports: No Symptoms Physical Exam Vital Signs: Vital Signs Temperature 98.6 F 10/27/16 15:29 Pulse Rate 90 10/27/16 15:29 Respiratory Rate 20 10/27/16 15:29 Blood Pressure 102/67 10/27/16 15:29 O2 Sat by Pulse Oximetry (%) 100 10/27/16 15:29 Constitutional: Yes: Calm Eyes: Yes: Conjunctiva Clear HENT: Yes: Atraumatic Neck: Yes: Supple Cardiovascular: Yes: S1, S2 Respiratory: Yes: CTA Bilaterally Gastrointestinal: Yes: Soft, Other (colostomy, dressings in place) Musculoskeletal: Yes: WNL Edema: No Neurological: Yes: Oriented Psychiatric: Yes: Oriented Labs: CBC, BMP 10/27/16 16:27 Laboratory Tests 10/27/16 10/27/16 10/27/16 12:15 12:50 12:50 WBC 12.9 H Hgb 12.9 Sodium 123 L* Potassium 5.4 H Chloride 74 L Carbon Dioxide 24 Anion Gap 26 H BUN 72 H Creatinine 12.7 H* Creat Clearance w eGFR 4.04 Random Glucose 133 H Lactic Acid 5.070 H* B-Natriuretic Peptide Lipase Urine Color Urine Appearance Urine pH Ur Specific [place] Urine Protein Urine Glucose (UA) Urine Ketones Urine Blood Urine Nitrite Urine Bilirubin Urine Urobilinogen Ur Leukocyte Esterase Ur Random Sodium Acetone, Qual 10/27/16 10/27/16 10/27/16 12:50 13:38 16:00 WBC Hgb Sodium Potassium Chloride Carbon Dioxide Anion Gap BUN Creatinine Creat Clearance w eGFR Random Glucose Lactic Acid B-Natriuretic Peptide 115.81 Lipase 510 H Urine Color Yellow Urine Appearance Clear Urine pH 5.0 Ur Specific [place] >= 1.030 Urine Protein 2+ H Urine Glucose (UA) Trace H Urine Ketones Trace H Urine Blood 2+ H Urine Nitrite Negative Urine Bilirubin 2+ H Urine Urobilinogen 0.2 e.u/dl Ur Leukocyte Esterase Trace H Ur Random Sodium Acetone, Qual Negative 10/27/16 10/27/16 16:00 16:27 WBC 10.1 H Hgb 11.1 L D Sodium Potassium Chloride Carbon Dioxide Anion Gap BUN Creatinine Creat Clearance w eGFR Random Glucose Lactic Acid B-Natriuretic Peptide Lipase Urine Color Urine Appearance Urine pH Ur Specific [place] Urine Protein Urine Glucose (UA) Urine Ketones Urine Blood Urine Nitrite Urine Bilirubin Urine Urobilinogen Ur Leukocyte Esterase Ur Random Sodium 23 Acetone, Qual Imaging - Results Chest X-ray: Report Reviewed Ultrasound: Report Reviewed Assessment/Plan Current Medications Generic Name Dose Route Start Last Admin Trade Name Selena PRN Reason Stop Dose Admin Atorvastatin Calcium 40 mg 10/27/16 22:00 Lipitor - PO HS JESSICA Ceftriaxone Sodium 1 gm 10/27/16 17:15 Rocephin 1gm Ivpb (Pre-Docked) IVPB DAILY [facility] Chlorhexidine Gluconate 1 applic 10/27/16 22:00 Hibiclens For Decolonization - TP HS JESSICA Heparin Sodium (Porcine) 5,000 unit 10/27/16 22:00 Heparin - SQ BID JESSICA Insulin Aspart 1 vial 10/27/16 22:00 Novolog Vial Sliding Scale - SQ ACHS [facility] Protocol Mupirocin 1 applic 10/27/16 22:00 Bactroban Ointment (For Decolonization) - NS 11/01/16 21:59 BID JESSICA Pilocarpine HCl 1 drop 10/27/16 22:00 Pilostat 0.5% - OP TID [facility] Impression 1. KEANU 2. hyperkalemia 3. DM 4. CAD 5. History of hypertension 6. hyperlipidemia 7. hyponatremia 8. colon cancer s/p resection 9. BPH Plan - agree with fluids - pt has a urine sodium of 23 which is low and consistent with pre-renal disease - pt does have increased output from his ostomy - renal ultrasound reviewed - likely etiology of KEANU is severe prolonged pre-renal disease - repeat bloodwork - admit pt to ICU - will also need syncope workup - pt has also been hypotensive - repeat lactic acid - I discussed dialysis with pt and family - repeat lactic acid level - send blood cultures - recommend surgery evaluation Dr Bueno
[2016-10-27] MEDS ORDERED: CEFTRIAXONE 50 ML ONE (17:35)
[2016-10-27] MEDS ORDERED: INSULIN REGULAR HUMAN 100 UNITS/ML *VIAL IVPUSH ONE (17:40)
[2016-10-27] MEDS ORDERED: DEXTROSE 50%-WATER 50 ML VIAL IVPUSH ONE (17:40)
[2016-10-27] MEDS ORDERED: SODIUM BICARBONATE 8.4% 50 MEQ/50 ML DISP.SYRIN IVPUSH ONE (17:42)
[2016-10-27] MEDS ORDERED: CALCIUM GLUCONATE 10% - 1,000 MG/10 ML VIAL IVPB ONE (17:42)
[2016-10-27] MEDS: cefTRIAXone 1 GM/50 ML BAG (PRE-DOCKED) IVPB SCH (17:42)
[2016-10-27] MEDS ORDERED: DEXTROSE 50%-WATER 50 ML DISP.SYRIN ONE (17:44)
[2016-10-27] MEDS ORDERED: SODIUM BICARBONATE 8.4% 50 MEQ/50 ML VIAL ONE ×2 (17:47→18:08)
[2016-10-27 17:57] LABS: PHOSPHOROUS 9.7 mg/dL (2.5-4.9)
[2016-10-27] MEDS: ALBUTEROL SO4 0.083% IH SOL 2.5 MG/3 ML VIAL.NEB. NEB SCH ×4 (17:59→18:30)
[2016-10-27] MEDS ORDERED: SODIUM BICARBONATE 8.4% - 100 ML ONE (18:03)
[2016-10-27] MEDS ORDERED: ALBUTEROL SO4 0.083% IH SOL 2.5 MG/3 ML VIAL.NEB. NEB ONE (18:09)
[2016-10-27] MEDS ORDERED: SODIUM CHLORIDE 0.45% 1,000 ML with SODIUM BICARBONATE 8.4% - 75 MEQ IV SCH ×2 (18:15→18:30)
[2016-10-27] MEDS ORDERED: SODIUM CHLORIDE 0.45% 1,000 ML with SODIUM BICARBONATE 8.4% - 75 MEQ IV ONE (18:30)
[2016-10-27] MEDS: SODIUM BICARBONATE 8.4% - 75 MEQ in SODIUM CHLORIDE 0.45% 1,000 ML IV SCH (18:30)
--- NOTE | 2016-10-27 20:10 | PN ---
Progress Note (short form) - Note Progress Note: Nephrology Addendum/Follow up Laboratory Tests 10/27/16 16:27 Sodium 124 L* Potassium 6.3 H* Chloride 89 L D Carbon Dioxide 20 L Anion Gap 15 BUN 70 H Creatinine 11.5 H* Repeat labs reviewed, sodium, bun and director of counseling are mildly improved and pt has started to make some urine. His potassium however is elevated. I treated the potassium medically. I again discussed HD with pt and he would prefer to wait and see if the fluids help. He is hesitant. If he does not improve he will likely require HD, although this may not be permanent. Will repeat labs tonight and follow closely. Pt is being admitted to the ICU.
[2016-10-27 21:21] VITALS: BMI 24.4
[2016-10-27] MEDS: INSULIN SLIDING SCALE (NOVOLOG) 1 VIAL SQ SCH (21:26)
[2016-10-27] MEDS ORDERED: CARVEDILOL 12.5 MG TABLET (FP) PO SCH (22:00)
[2016-10-27] MEDS ORDERED: PILOCARPINE HCL OP SCH (22:00)
[2016-10-27] MEDS ORDERED: PILOCARPINE HCL OU SCH (22:00)
[2016-10-27] MEDS: MUPIROCIN 2% TOPICAL OINTMENT FOR DECOLONIZATION NS SCH (22:00)
[2016-10-27] MEDS: HEPARIN NA (PORCINE) 5,000 UNITS/ML 1ML VIAL SQ SCH (22:05)
[2016-10-27] MEDS: ATORVASTATIN CA 40 MG TABLET (FP) PO SCH (22:05)
[2016-10-27] MEDS ORDERED: SODIUM CHLORIDE 500 ML IV STA ×2 (22:09→22:26)
[2016-10-27] MEDS ORDERED: LACTATED RINGERS SOLUTION 500 ML IV ONE (22:30)
[2016-10-27 23:03] LABS: CALCIUM 7.2 mg/dL (8.5-10.1)
[2016-10-27 23:12] LABS: CREATININE 11.3 mg/dL (0.7-1.3)
[2016-10-27 23:20] LABS: MAGNESIUM 1.6 mg/dL (1.8-2.4)
--- NOTE | 2016-10-27 23:58 | PN ---
Progress Note (short form) - Note Progress Note: Laboratory Tests 10/27/16 22:00 Sodium 131 L Potassium 4.9 D Chloride 91 L Carbon Dioxide 20 L Anion Gap 20 H BUN 71 H Creatinine 11.3 H* Repeat labs reviewed. Continue with fluids. Repeat labs in am. Potassium is improved. BP remains low and he did require a saline bolus. Continue to monitor in ICU. Will re-evaluate for HD in am. Dr Bueno
[2016-10-28 00:50] LABS: TROPONIN I < 0.02 ng/ml (0.00-0.05)
[2016-10-28 02:36] LABS: PHOSPHOROUS 9.5 mg/dL (2.5-4.9)
[2016-10-28] MEDS ORDERED: CALCIUM GLUCONATE 10% - 1,000 MG/10 ML VIAL IVPB ONE (02:37)
[2016-10-28] MEDS ORDERED: CALCIUM ACETATE 667 MG CAPSULE (FP) PO ONE (02:45)
[2016-10-28] MEDS: SODIUM BICARBONATE 8.4% - 75 MEQ in SODIUM CHLORIDE 0.45% 1,000 ML IV SCH ×4 (03:15→22:00)
[2016-10-28] MEDS ORDERED: SODIUM CHLORIDE 500 ML IV STA (04:51)
[2016-10-28] MEDS: INSULIN SLIDING SCALE (NOVOLOG) 1 VIAL SQ SCH ×4 (07:00→22:42)
[2016-10-28 07:04] LABS: BASOPHIL 0.4 % (0-2.0); EOSINOPHIL 0.1 % (0-4.5); MCH 25.8 pg (25.7-33.7); MCHC 33.7 g/dl (32.0-35.9); MEAN CELL VOLUME 76.6 fl (80-96); MEAN PLT VOLUME 7.7 fl (7.5-11.1); NEUTROPHILS 60.3 % (42.8-82.8); PLATELET COUNT 306 K/MM3 (134-434); WHITE BLOOD COUNT 8.5 K/mm3 (4.0-10.0)
[2016-10-28 07:22] LABS: ALBUMIN 2.6 g/dl (3.4-5.0); CALCIUM 7.2 mg/dL (8.5-10.1); MAGNESIUM 1.5 mg/dL (1.8-2.4); PHOSPHOROUS 7.8 mg/dL (2.5-4.9)
[2016-10-28 07:27] LABS: INR 1.29 (0.82-1.09); PROTHROMBIN TIME (PATIENT) 14.3 SEC (9.98-11.88)
[2016-10-28 07:30] LABS: ACTIVATED PTT 26.2 SECONDS (26.9-34.4)
[2016-10-28 07:31] LABS: BILIRUBIN,TOTAL 0.4 mg/dL (0.2-1.0); TOT PROT 5.7 g/dl (6.4-8.2)
[2016-10-28 08:19] LABS: CREATININE 10.2 mg/dL (0.7-1.3)
[2016-10-28] MEDS ORDERED: PT OWN MED DRAWER 7, Y5N ONE (08:41)
[2016-10-28] MEDS: HEPARIN NA (PORCINE) 5,000 UNITS/ML 1ML VIAL SQ SCH ×2 (09:15→21:18)
[2016-10-28] MEDS: CALCIUM ACETATE 667 MG CAPSULE (FP) PO SCH ×3 (09:15→17:32)
[2016-10-28] MEDS: cefTRIAXone 1 GM/50 ML BAG (PRE-DOCKED) IVPB SCH (09:19)
[2016-10-28] MEDS: MUPIROCIN 2% TOPICAL OINTMENT FOR DECOLONIZATION NS SCH ×2 (09:20→21:19)
--- NOTE | 2016-10-28 12:36 | PN ---
Teaching Attending Note Name of Resident: Stephen Elliott ATTENDING PHYSICIAN STATEMENT I saw and evaluated the patient. I reviewed the resident's note and discussed the case with the resident. I agree with the resident's findings and plan as documented. SUBJECTIVE: Pt seen and examined in the ICU. Feels better today. No nausea, vomiting or diarrhea. Starting to make urine. No shortness of breath or chest pain. No fevers or chills. OBJECTIVE: Last Vital Signs Temp Pulse Resp BP Pulse Ox 99.0 F 89 20 136/90 100 10/28/16 10:00 10/28/16 12:00 10/28/16 12:00 10/28/16 12:00 10/28/16 08:27 Intake & Output 10/25/16 10/26/16 10/27/16 10/28/16 23:59 23:59 23:59 23:59 Intake Total 4750 2100 Output Total 55 1200 Balance 4695 900 Weight 160 lb 11.472 oz 164 lb 0.383 oz Gen: NAD at rest Heart: RRR Lung: decreased breath sounds at the bases Abd: soft, +ostomy pink Ext: no edema CBC, BMP 10/28/16 05:20 10/28/16 05:20 Active Medications Atorvastatin Calcium (Lipitor -) 40 mg PO HS [facility] Last Admin: 10/27/16 22:05 Dose: 40 mg Calcium Acetate (Phoslo -) 667 mg PO TIDCM [facility] Last Admin: 10/28/16 11:46 Dose: 667 mg Ceftriaxone Sodium (Rocephin 1gm Ivpb (Pre-Docked)) 1 gm IVPB DAILY [facility] Last Admin: 10/28/16 09:19 Dose: 1 gm Chlorhexidine Gluconate (Hibiclens For Decolonization -) 1 applic TP HS [facility] Last Admin: 10/28/16 00:00 Dose: 1 applic Heparin Sodium (Porcine) (Heparin -) 5,000 unit SQ BID [facility] Last Admin: 10/28/16 09:15 Dose: 5,000 unit Sodium Bicarbonate 75 meq/ (Sodium Chloride) 1,075 mls @ 125 mls/hr IV Q8H [facility] Last Admin: 10/28/16 11:05 Dose: 125 mls/hr Insulin Aspart (Novolog Vial Sliding Scale -) 1 vial SQ ACHS [facility] PRN Reason: Protocol Last Admin: 10/28/16 11:41 Dose: Not Given Mupirocin (Bactroban Ointment (For Decolonization) -) 1 applic NS BID [facility] Stop: 11/01/16 21:59 Last Admin: 10/28/16 09:20 Dose: 1 applic Pilocarpine 0.5% Opth Drops - Patient Own Med 1 each OU TID [facility] ASSESSMENT AND PLAN: Colon Ca s/p recent LAR Acute Kidney Injury likely from severe dehydration Hyperkalemia improved Lactic Acidosis Hyponatremia CAD HTN DM r/o UTI - continue IVF resuscitation - monitor urine output, creatinine - monitor lytes - trend lactate - hold all nephrotoxic meds - continue empiric antibiotics - f/u cultures - PO as tolerated - OOB to chair - DVT prophylaxis - continue ICU monitoring for now
--- NOTE | 2016-10-28 13:11 | PN ---
Progress Note, Physician History of Present Illness: Pt seen and examined at bedside. He is awake and alert. He says he feels much better. He denies shortness of breath or chest pain. He has started to make urine. - Current Medication List Current Medications: Active Medications Atorvastatin Calcium (Lipitor -) 40 mg PO HS [facility] Last Admin: 10/27/16 22:05 Dose: 40 mg Calcium Acetate (Phoslo -) 667 mg PO TIDCM [facility] Last Admin: 10/28/16 11:46 Dose: 667 mg Ceftriaxone Sodium (Rocephin 1gm Ivpb (Pre-Docked)) 1 gm IVPB DAILY [facility] Last Admin: 10/28/16 09:19 Dose: 1 gm Chlorhexidine Gluconate (Hibiclens For Decolonization -) 1 applic TP HS [facility] Last Admin: 10/28/16 00:00 Dose: 1 applic Heparin Sodium (Porcine) (Heparin -) 5,000 unit SQ BID [facility] Last Admin: 10/28/16 09:15 Dose: 5,000 unit Sodium Bicarbonate 75 meq/ (Sodium Chloride) 1,075 mls @ 125 mls/hr IV Q8H [facility] Last Admin: 10/28/16 11:05 Dose: 125 mls/hr Insulin Aspart (Novolog Vial Sliding Scale -) 1 vial SQ ACHS [facility] PRN Reason: Protocol Last Admin: 10/28/16 11:41 Dose: Not Given Mupirocin (Bactroban Ointment (For Decolonization) -) 1 applic NS BID [facility] Stop: 11/01/16 21:59 Last Admin: 10/28/16 09:20 Dose: 1 applic Pilocarpine 0.5% Opth Drops - Patient Own Med 1 each OU TID [facility] - Objective Vital Signs: Vital Signs Temperature 99.0 F 10/28/16 10:00 Pulse Rate 89 10/28/16 12:00 Respiratory Rate 20 10/28/16 12:00 Blood Pressure 136/90 10/28/16 12:00 O2 Sat by Pulse Oximetry (%) 100 10/28/16 08:27 Constitutional: Yes: Calm Eyes: Yes: Conjunctiva Clear HENT: Yes: Atraumatic Neck: Yes: Supple Cardiovascular: Yes: S1, S2 Respiratory: Yes: CTA Bilaterally Gastrointestinal: Yes: Soft, Other (colostomy) Genitourinary: Yes: Saldivar Present Musculoskeletal: Yes: WNL Extremities: Yes: WNL Edema: No Neurological: Yes: Oriented Psychiatric: Yes: Oriented Labs: CBC, BMP 10/28/16 05:20 10/28/16 05:20 INR, PTT INR 1.29 (0.82-1.09) H 10/28/16 05:20 Assessment/Plan Current Medications Generic Name Dose Route Start Last Admin Trade Name Junitoq PRN Reason Stop Dose Admin Atorvastatin Calcium 40 mg 10/27/16 22:00 10/27/16 22:05 Lipitor - PO 40 mg HS JESSICA Administration Calcium Acetate 667 mg 10/28/16 08:00 10/28/16 11:46 Phoslo - PO 667 mg TIDCM JESSICA Administration Ceftriaxone Sodium 1 gm 10/27/16 17:15 10/28/16 09:19 Rocephin 1gm Ivpb (Pre-Docked) IVPB 1 gm DAILY JESSICA Administration Chlorhexidine Gluconate 1 applic 10/27/16 22:00 10/28/16 00:00 Hibiclens For Decolonization - TP 1 applic HS JESSICA Administration Heparin Sodium (Porcine) 5,000 unit 10/27/16 22:00 10/28/16 09:15 Heparin - SQ 5,000 unit BID JESSICA Administration Sodium Bicarbonate 75 meq/ 1,075 mls @ 125 mls/hr 10/27/16 17:45 10/28/16 11:05 Sodium Chloride IV 125 mls/hr Q8H JESSICA Administration Insulin Aspart 1 vial 10/27/16 22:00 10/28/16 11:41 Novolog Vial Sliding Scale - SQ Not Given ACHS [facility] Protocol Mupirocin 1 applic 10/27/16 22:00 10/28/16 09:20 Bactroban Ointment (For Decolonization) - NS 11/01/16 21:59 1 applic BID JESSICA Administration Pilocarpine 0.5% 1 each 10/28/16 14:00 Opth Drops - Patient OU Own Med TID JESSICA Impression 1. KEANU 2. hyperkalemia 3. DM 4. CAD 5. History of hypertension 6. hyperlipidemia 7. hyponatremia 8. colon cancer s/p resection 9. BPH Plan - cont with fluids - renal function is improving - pt is starting to make urine - cont with current fluids - cont to monitor renal function - no indication for HD at this point as pt is improving - keep in ICU today - lactic acid is improving - case discussed with pt and his family - monitor pulse ox - discussed with ICU team - sodium is improved - recommend surgery evaluation Dr Bueno
--- NOTE | 2016-10-28 13:17 | PN ---
Physical Exam: SUBJECTIVE: Patient seen and examined oob to chair. OBJECTIVE: Vital Signs Period Temp Pulse Resp BP Sys/Palacio Pulse Ox Last 24 Hr 98.5 F-99.0 F 89-110 16-20 87-138/49-90 100-100 GENERAL: Awake, alert, and fully oriented, in no acute distress. HEAD: Normal with no signs of trauma. EYES: Pupils equal, round and reactive to light, extraocular movements intact, sclera anicteric, conjunctiva clear. No ptosis LUNGS: Breath sounds equal, clear to auscultation bilaterally. No wheezes, and no crackles. No accessory muscle use. HEART: Regular rate and rhythm, normal S1 and S2 without murmur, rub or gallop. ABDOMEN: Colostomy present, brown liquid stool in bag. Soft, nontender, not distended MUSCULOSKELETAL: Normal range of motion at all joints. No bony deformities or tenderness. No CVA tenderness. UPPER EXTREMITIES: No cyanosis. No clubbing. Cap refill <2 seconds. No peripheral edema. LOWER EXTREMITIES: No calf tenderness. No peripheral edema. NEUROLOGICAL: Cranial nerves II-XII intact. Normal speech. Gait not assessed. PSYCHIATRIC: Cooperative. Good eye contact. Appropriate mood and affect. SKIN: Dry mucous membraines, poor skin turgor. Laboratory Results - last 24 hr 10/27/16 10/27/16 10/27/16 16:00 16:00 16:27 WBC RBC Hgb Hct MCV MCHC RDW Plt Count MPV Neutrophils % Lymphocytes % Monocytes % Eosinophils % Basophils % INR PTT (Actin FS) Sodium Potassium Chloride Carbon Dioxide Anion Gap BUN Creatinine Creat Clearance w eGFR POC Glucometer Random Glucose Lactic Acid 5.207 H* Calcium Phosphorus Magnesium Total Bilirubin AST ALT Alkaline Phosphatase Creatine Kinase Troponin I Total Protein Albumin Total Amylase Lipase Urine Color Yellow Urine Appearance Clear Urine pH 5.0 Ur Specific [place] >= 1.030 Urine Protein 2+ H Urine Glucose (UA) Trace H Urine Ketones Trace H Urine Blood 2+ H Urine Nitrite Negative Urine Bilirubin 2+ H Urine Urobilinogen 0.2 e.u/dl Ur Leukocyte Esterase Trace H Urine RBC 4 Urine WBC 29 Ur Epithelial Cells Rare Ur Random Sodium 23 Ur Random Potassium 17.6 Ur Random Chloride 15 Blood Type Antibody Screen 10/27/16 10/27/16 10/27/16 16:27 16:27 16:27 WBC 10.1 H RBC 4.35 Hgb 11.1 L D Hct 33.8 L MCV 77.7 L MCHC 32.7 RDW 16.2 H Plt Count 315 MPV 7.5 Neutrophils % 69.1 Lymphocytes % 18.2 Monocytes % 11.2 H Eosinophils % 0.1 Basophils % 1.4 INR PTT (Actin FS) Sodium Cancelled 124 L* Potassium Cancelled 6.3 H* Chloride Cancelled 89 L D Carbon Dioxide Cancelled 20 L Anion Gap Cancelled 15 BUN Cancelled 70 H Creatinine Cancelled 11.5 H* Creat Clearance w eGFR 4.54 POC Glucometer Random Glucose Cancelled 107 H Lactic Acid Calcium Cancelled 7.8 L Phosphorus 9.7 H* Magnesium 1.8 Total Bilirubin 0.4 AST 13 L D ALT 29 Alkaline Phosphatase 86 D Creatine Kinase Troponin I Total Protein 7.2 Albumin 3.1 L D Total Amylase Lipase Urine Color Urine Appearance Urine pH Ur Specific [place] Urine Protein Urine Glucose (UA) Urine Ketones Urine Blood Urine Nitrite Urine Bilirubin Urine Urobilinogen Ur Leukocyte Esterase Urine RBC Urine WBC Ur Epithelial Cells Ur Random Sodium Ur Random Potassium Ur Random Chloride Blood Type Antibody Screen 10/27/16 10/27/16 10/27/16 17:00 21:12 22:00 WBC RBC Hgb Hct MCV MCHC RDW Plt Count MPV Neutrophils % Lymphocytes % Monocytes % Eosinophils % Basophils % INR PTT (Actin FS) Sodium Potassium Chloride Carbon Dioxide Anion Gap BUN Creatinine Creat Clearance w eGFR POC Glucometer [id number] Random Glucose Lactic Acid Calcium Phosphorus Magnesium Total Bilirubin AST ALT Alkaline Phosphatase Creatine Kinase Troponin I Total Protein Albumin Total Amylase Lipase Urine Color Urine Appearance Urine pH Ur Specific [place] Urine Protein Urine Glucose (UA) Urine Ketones Urine Blood Urine Nitrite Urine Bilirubin Urine Urobilinogen Ur Leukocyte Esterase Urine RBC Urine WBC Ur Epithelial Cells Ur Random Sodium Ur Random Potassium Ur Random Chloride Blood Type B POSITIVE B POSITIVE Antibody Screen Negative 10/27/16 10/27/16 10/28/16 22:00 22:00 01:31 WBC RBC Hgb Hct MCV MCHC RDW Plt Count MPV Neutrophils % Lymphocytes % Monocytes % Eosinophils % Basophils % INR PTT (Actin FS) Sodium 131 L Potassium 4.9 D Chloride 91 L Carbon Dioxide 20 L Anion Gap 20 H BUN 71 H Creatinine 11.3 H* Creat Clearance w eGFR POC Glucometer [id number] Random Glucose 57 L D Lactic Acid Calcium 7.2 L Phosphorus 9.5 H* Magnesium 1.6 L Total Bilirubin AST ALT Alkaline Phosphatase Creatine Kinase 78 Troponin I < 0.02 Total Protein Albumin Total Amylase Lipase Urine Color Urine Appearance Urine pH Ur Specific [place] Urine Protein Urine Glucose (UA) Urine Ketones Urine Blood Urine Nitrite Urine Bilirubin Urine Urobilinogen Ur Leukocyte Esterase Urine RBC Urine WBC Ur Epithelial Cells Ur Random Sodium Ur Random Potassium Ur Random Chloride Blood Type Antibody Screen 10/28/16 10/28/16 10/28/16 03:00 05:20 05:20 WBC 8.5 RBC 3.81 L Hgb 9.8 L D Hct 29.2 L MCV 76.6 L MCHC 33.7 RDW 16.0 H Plt Count 306 MPV 7.7 Neutrophils % 60.3 Lymphocytes % 23.4 D Monocytes % 15.8 H Eosinophils % 0.1 Basophils % 0.4 INR PTT (Actin FS) Sodium 133 L Potassium 4.7 Chloride 93 L Carbon Dioxide 23 Anion Gap 17 H BUN 69 H Creatinine 10.2 H* Creat Clearance w eGFR 5.21 POC Glucometer Random Glucose 74 D Lactic Acid 6.156 H* Calcium 7.2 L Phosphorus 7.8 H Magnesium 1.5 L Total Bilirubin 0.4 AST 12 L ALT 23 D Alkaline Phosphatase 72 Creatine Kinase Troponin I Total Protein 5.7 L D Albumin 2.6 L Total Amylase 103 Lipase 438 H Urine Color Urine Appearance Urine pH Ur Specific [place] Urine Protein Urine Glucose (UA) Urine Ketones Urine Blood Urine Nitrite Urine Bilirubin Urine Urobilinogen Ur Leukocyte Esterase Urine RBC Urine WBC Ur Epithelial Cells Ur Random Sodium Ur Random Potassium Ur Random Chloride Blood Type Antibody Screen 10/28/16 10/28/16 10/28/16 05:20 05:20 05:20 WBC RBC Hgb Hct MCV MCHC RDW Plt Count MPV Neutrophils % Lymphocytes % Monocytes % Eosinophils % Basophils % INR 1.29 H PTT (Actin FS) 26.2 L Sodium Potassium Chloride Carbon Dioxide Anion Gap BUN Creatinine Creat Clearance w eGFR POC Glucometer Random Glucose Lactic Acid 3.083 H* Calcium Phosphorus Magnesium Total Bilirubin AST ALT Alkaline Phosphatase Creatine Kinase Troponin I Total Protein Albumin Total Amylase Cancelled Lipase Cancelled Urine Color Urine Appearance Urine pH Ur Specific [place] Urine Protein Urine Glucose (UA) Urine Ketones Urine Blood Urine Nitrite Urine Bilirubin Urine Urobilinogen Ur Leukocyte Esterase Urine RBC Urine WBC Ur Epithelial Cells Ur Random Sodium Ur Random Potassium Ur Random Chloride Blood Type Antibody Screen Current Medications Generic Name Dose Route Start Last Admin Trade Name Freq PRN Reason Stop Dose Admin Atorvastatin Calcium 40 mg 10/27/16 22:00 10/28/16 21:18 Lipitor - PO 40 mg HS JESSICA Administration Calcium Acetate 667 mg 10/28/16 08:00 10/28/16 17:32 Phoslo - PO 667 mg TIDCM JESSICA Administration Carvedilol 12.5 mg 10/28/16 15:15 10/28/16 21:18 Coreg - PO 12.5 mg BID JESSICA Administration Ceftriaxone Sodium 1 gm 10/27/16 17:15 10/28/16 09:19 Rocephin 1gm Ivpb (Pre-Docked) IVPB 1 gm DAILY JESSICA Administration Chlorhexidine Gluconate 1 applic 10/27/16 22:00 10/28/16 21:19 Hibiclens For Decolonization - TP 1 applic HS JESSICA Administration Heparin Sodium (Porcine) 5,000 unit 10/27/16 22:00 10/28/16 21:18 Heparin - SQ 5,000 unit BID JESSICA Administration Sodium Bicarbonate 75 meq/ 1,075 mls @ 125 mls/hr 10/27/16 17:45 10/28/16 19:21 Sodium Chloride IV Not Given Q8H JESSICA Insulin Aspart 1 vial 10/27/16 22:00 10/28/16 22:42 Novolog Vial Sliding Scale - SQ 2 units ACHS JESSICA Administration Protocol Mupirocin 1 applic 10/27/16 22:00 10/28/16 21:19 Bactroban Ointment (For Decolonization) - NS 11/01/16 21:59 1 applic BID JESSICA Administration Pilocarpine 0.5% 1 each 10/28/16 14:00 Opth Drops - Patient OU Own Med TID JESSICA ASSESSMENT/PLAN: 64 year old male with PMH of HTN, HLD, CAD s/p stents x 2, NIDDM, BPH, and colon cancer s/p low anterior recotsigmoid colon resection on 10/14/16 at [facility]. Admitted for acute kidney injury. Acute kidney injury secondary to severe dehydration Anuria, resolved --patient with no PO intake for 4 days because he wasn't feeling well; no UOP for 48 hours prior to coming to ED --on admission BUN/Cr 72/12.7 and no UOP with lópez placement --aggressive fluid resuscitation over past 24 hours with UOP 5.9L but BUN/Cr and phos still extremely elevated --continue IV fluids with bicarb --hold ACEI/ARB, diuretics --continue lópez, strict I&Os --renal following --[employer] possible if does not continue to improve Lactic acidosis, improving --lactic acid 5.2-->6.1-->3 --continue IV fluids with bicarb Colon cancer s/p low anterior recotsigmoid colon resection on 10/14/16 --biopsy showed adenocarcinoma with lymph involvement --last seen by surgeon on 10/28 removed carmel and ASHKAN drain --colostomy putting out liquid brown stool Hyperkalemia --peak 6.3, now 4.7 following calcium gluconate, D50, insulin cocktail --continue IV fluids --continue telemetry monitoring --daily ECGs Hyponatremia, improved --Na 124-->133 --continue IV fluids NIDDM --HgbA1C 8.8 --Novolog sliding scale coverage --hold metformin Pyuria --urine with 29 WBCs --culture pending --continue empiric ceftriaxone (day #2) BPH --on Rapaflo at home not in formulary --start Flomax Hypertension --Coreg restarted Hyperlipidemia --continue Lipitor CAD --continue Coreg, Lipitor F/E/N Fluids: NS w/bicarb @ 125mL/hr Electrolytes: replete as indicated Nutrition: low sodium diabetic DVT prophylaxis: subq heparin, oob, ambulation Dispo: continues to require ICU level care. Full Code. Visit type - Emergency Visit Emergency Visit: Yes ED Registration Date: 10/27/16 Care time: The patient presented to the Emergency Department on the above date and was hospitalized for further evaluation of their emergent condition. - New Patient This patient is new to me today: No - Critical Care Critical Care patient: Yes Total Critical Care Time (in minutes): 60 Critical Care Statement: The care of this patient involved high complexity decision making to prevent further life threatening deterioration of the patient 's condition and/or to evalute & treat vital organ system(s) failure or risk of failure.
--- NOTE | 2016-10-28 14:56 | PN ---
Progress Note, Physician History of Present Illness: patient seen and examined in ICU feels much better denies dizziness chest pain or shortness of breath - Current Medication List Current Medications: Active Medications Atorvastatin Calcium (Lipitor -) 40 mg PO HS [facility] Last Admin: 10/27/16 22:05 Dose: 40 mg Calcium Acetate (Phoslo -) 667 mg PO TIDCM [facility] Last Admin: 10/28/16 11:46 Dose: 667 mg Ceftriaxone Sodium (Rocephin 1gm Ivpb (Pre-Docked)) 1 gm IVPB DAILY [facility] Last Admin: 10/28/16 09:19 Dose: 1 gm Chlorhexidine Gluconate (Hibiclens For Decolonization -) 1 applic TP HS [facility] Last Admin: 10/28/16 00:00 Dose: 1 applic Heparin Sodium (Porcine) (Heparin -) 5,000 unit SQ BID [facility] Last Admin: 10/28/16 09:15 Dose: 5,000 unit Sodium Bicarbonate 75 meq/ (Sodium Chloride) 1,075 mls @ 125 mls/hr IV Q8H [facility] Last Admin: 10/28/16 11:05 Dose: 125 mls/hr Insulin Aspart (Novolog Vial Sliding Scale -) 1 vial SQ ACHS [facility] PRN Reason: Protocol Last Admin: 10/28/16 11:41 Dose: Not Given Mupirocin (Bactroban Ointment (For Decolonization) -) 1 applic NS BID [facility] Stop: 11/01/16 21:59 Last Admin: 10/28/16 09:20 Dose: 1 applic Pilocarpine 0.5% Opth Drops - Patient Own Med 1 each OU TID [facility] - Objective Vital Signs: Vital Signs Temperature 99.0 F 10/28/16 10:00 Pulse Rate 89 10/28/16 12:00 Respiratory Rate 20 10/28/16 12:00 Blood Pressure 136/90 10/28/16 12:00 O2 Sat by Pulse Oximetry (%) 100 10/28/16 08:27 Constitutional: Yes: Well Nourished, Calm Eyes: Yes: Conjunctiva Clear HENT: Yes: Atraumatic, Normocephalic Neck: Yes: Supple, Trachea Midline, Other (dry mucous membranes) Cardiovascular: Yes: Regular Rate and Rhythm Respiratory: Yes: Regular, CTA Bilaterally Gastrointestinal: Yes: Normal Bowel Sounds, Soft, Other (appropriate incisional tenderness otherwise soft. ostomy pink and patent ostomy visibly functioning) Renal/: Yes: Anuria, Other (no urine in lópez) Edema: No ...Motor Strength: WNL Labs: CBC, BMP 10/28/16 05:20 10/28/16 05:20 INR, PTT INR 1.29 (0.82-1.09) H 10/28/16 05:20 Problem List - Problems (1) Acute renal failure Assessment/Plan: Cr improving with IVF will continue IVF with bicarb per nephrology secondary to severe dehydration Nephrology consult appreciated hold nephrotoxic drugs such as MARICARMEN/ARB renally dose all medications Code(s): N17.9 - ACUTE KIDNEY FAILURE, UNSPECIFIED Qualifiers: Acute renal failure type: with acute renal cortical necrosis Qualified Code(s): N17.1 - Acute kidney failure with acute cortical necrosis (2) Colon cancer Assessment/Plan: s/p low anterior resection being followed by surgeon as outpt no active issues Code(s): C18.9 - MALIGNANT NEOPLASM OF COLON, UNSPECIFIED Qualifiers: Colon location: sigmoid Qualified Code(s): C18.7 - Malignant neoplasm of sigmoid colon (3) Dehydration Assessment/Plan: now making urine output about 100ml/hr overnight maintenance fluids trend BMP Code(s): E86.0 - DEHYDRATION (4) Hyponatremia Assessment/Plan: getting normal saline improving not to increase sodium by 0.5 meq/hr or >10meq in 24 hrs recheck BMP Code(s): E87.1 - HYPO-OSMOLALITY AND HYPONATREMIA (5) Lactic acid acidosis Assessment/Plan: trend lactate fluid boluses improving Code(s): E87.2 - ACIDOSIS (6) High anion gap metabolic acidosis Assessment/Plan: trend BMP correct lactic acidosis improving Code(s): E87.2 - ACIDOSIS (7) Hyperkalemia, diminished renal excretion Assessment/Plan: likely from renal failure resolved Code(s): E87.5 - HYPERKALEMIA (8) Hypertension Assessment/Plan: restart coreg Code(s): I10 - ESSENTIAL (PRIMARY) HYPERTENSION Qualifiers: Hypertension type: essential hypertension Qualified Code(s): I10 - Essential (primary) hypertension (9) Hyperlipidemia Assessment/Plan: restart statin today Code(s): E78.5 - HYPERLIPIDEMIA, UNSPECIFIED Qualifiers: Hyperlipidemia type: unspecified Qualified Code(s): E78.5 - Hyperlipidemia, unspecified (10) Diabetes Assessment/Plan: BGM ACHS ISS hold metformin Code(s): E11.9 - TYPE 2 DIABETES MELLITUS WITHOUT COMPLICATIONS Qualifiers: Diabetes mellitus type: type 2 Assessment/Plan PPx: HSQ no gi ppx needed no deconsitioning issues FEN: 1/2NS with bicarb with 125ml/hr hyponatremia getting better renal diet
--- NOTE | 2016-10-28 15:37 | EKG ---
Test Reason : Blood Pressure : / mmHG Vent. Rate : 092 BPM Atrial Rate : 092 BPM P-R Int : 150 ms QRS Dur : 084 ms QT Int : 374 ms P-R-T Axes : 059 009 100 degrees QTc Int : 462 ms NORMAL SINUS RHYTHM NONSPECIFIC T WAVE ABNORMALITY PROLONGED QT ABNORMAL ECG WHEN COMPARED WITH ECG OF 27-OCT-2016 17:50, NONSPECIFIC T WAVE ABNORMALITY NOW EVIDENT IN INFERIOR LEADS Confirmed by RITU MUÑIZ, SOLITARIO ([id number]) on 10/28/2016 3:37:03 PM Referred By: Yonas CORTES Confirmed By:SOLITARIO CHANEY MD
[2016-10-28] MEDS: CARVEDILOL 12.5 MG TABLET (FP) PO SCH ×2 (15:50→21:18)
[2016-10-28] MEDS ORDERED: LIDOCAINE HCL 2% 100 MG/5 ML DISP.SYRIN ONE (16:47)
[2016-10-28] MEDS: ATORVASTATIN CA 40 MG TABLET (FP) PO SCH (21:18)
[2016-10-28] MEDS: CHLORHEXIDINE GLUCONATE 4% CLEANSER FOR DECOLONIZATION TP SCH ×2 (21:19)
[2016-10-28] MEDS ORDERED: CARVEDILOL 12.5 MG TABLET (FP) PO SCH (22:00)
--- NOTE | 2016-10-29 00:32 | EKG ---
Test Reason : Blood Pressure : / mmHG Vent. Rate : 103 BPM Atrial Rate : 103 BPM P-R Int : 200 ms QRS Dur : 086 ms QT Int : 366 ms P-R-T Axes : 054 031 066 degrees QTc Int : 479 ms SINUS TACHYCARDIA OTHERWISE NORMAL ECG WHEN COMPARED WITH ECG OF 27-OCT-2016 13:33, NO SIGNIFICANT CHANGE WAS FOUND Confirmed by HENRI WILLAMS MD ([id number]) on 10/29/2016 12:32:13 AM Referred By: Confirmed By:HENRI WILLAMS MD
[2016-10-29] MEDS: SODIUM BICARBONATE 8.4% - 75 MEQ in SODIUM CHLORIDE 0.45% 1,000 ML IV SCH ×2 (06:27→09:54)
[2016-10-29] MEDS: INSULIN SLIDING SCALE (NOVOLOG) 1 VIAL SQ SCH ×4 (06:28→21:11)
[2016-10-29 06:52] LABS: BASOPHIL 0.4 % (0-2.0); EOSINOPHIL 0.6 % (0-4.5); MCH 25.4 pg (25.7-33.7); MCHC 33.2 g/dl (32.0-35.9); MEAN CELL VOLUME 76.7 fl (80-96); MEAN PLT VOLUME 7.9 fl (7.5-11.1); NEUTROPHILS 64.1 % (42.8-82.8); PLATELET COUNT 313 K/MM3 (134-434); RDW 15.8 % (11.9-15.9); WHITE BLOOD COUNT 8.6 K/mm3 (4.0-10.0)
[2016-10-29 07:21] LABS: ALBUMIN 2.8 g/dl (3.4-5.0)
[2016-10-29 07:27] LABS: BILIRUBIN,TOTAL 0.3 mg/dL (0.2-1.0); CALCIUM 7.7 mg/dL (8.5-10.1); CREATININE 6.4 mg/dL (0.7-1.3); MAGNESIUM 1.8 mg/dL (1.8-2.4); TOT PROT 6.1 g/dl (6.4-8.2)
--- NOTE | 2016-10-29 08:21 | PN ---
Progress Note, Physician History of Present Illness: patient seen and examined in ICU feels well denies dizziness chest pain or shortness of breath - Current Medication List Current Medications: Active Medications Atorvastatin Calcium (Lipitor -) 40 mg PO HS [facility] Last Admin: 10/28/16 21:18 Dose: 40 mg Calcium Acetate (Phoslo -) 667 mg PO TIDCM [facility] Last Admin: 10/28/16 17:32 Dose: 667 mg Carvedilol (Coreg -) 12.5 mg PO BID [facility] Last Admin: 10/28/16 21:18 Dose: 12.5 mg Ceftriaxone Sodium (Rocephin 1gm Ivpb (Pre-Docked)) 1 gm IVPB DAILY [facility] Last Admin: 10/28/16 09:19 Dose: 1 gm Chlorhexidine Gluconate (Hibiclens For Decolonization -) 1 applic TP HS [facility] Last Admin: 10/28/16 21:19 Dose: 1 applic Heparin Sodium (Porcine) (Heparin -) 5,000 unit SQ BID [facility] Last Admin: 10/28/16 21:18 Dose: 5,000 unit Sodium Bicarbonate 75 meq/ (Sodium Chloride) 1,075 mls @ 125 mls/hr IV Q8H [facility] Last Admin: 10/29/16 06:27 Dose: 125 mls/hr Insulin Aspart (Novolog Vial Sliding Scale -) 1 vial SQ ACHS [facility] PRN Reason: Protocol Last Admin: 10/29/16 06:28 Dose: Not Given Mupirocin (Bactroban Ointment (For Decolonization) -) 1 applic NS BID [facility] Stop: 11/01/16 21:59 Last Admin: 10/28/16 21:19 Dose: 1 applic Pilocarpine 0.5% Opth Drops - Patient Own Med 1 each OU TID [facility] Tamsulosin HCl (Flomax -) 0.4 mg PO DAILY@0830 [facility] - Objective Vital Signs: Vital Signs Temperature 98.4 F 10/29/16 06:00 Pulse Rate 72 10/29/16 06:00 Respiratory Rate 18 10/29/16 06:00 Blood Pressure 128/77 10/29/16 06:00 O2 Sat by Pulse Oximetry (%) 100 10/28/16 20:46 Constitutional: Yes: Well Nourished, Calm Eyes: Yes: Conjunctiva Clear HENT: Yes: Atraumatic, Normocephalic Neck: Yes: Supple, Trachea Midline, Other (dry mucous membranes) Cardiovascular: Yes: Regular Rate and Rhythm Respiratory: Yes: Regular, CTA Bilaterally Gastrointestinal: Yes: Normal Bowel Sounds, Soft, Other (appropriate incisional tenderness otherwise soft. ostomy pink and patent ostomy visibly functioning) Edema: No ...Motor Strength: WNL Labs: CBC, BMP 10/29/16 05:15 10/29/16 05:15 INR, PTT INR 1.29 (0.82-1.09) H 10/28/16 05:20 Problem List - Problems (1) Acute renal failure Assessment/Plan: Cr improving with IVF will continue IVF with bicarb per nephrology secondary to severe dehydration Nephrology consult appreciated hold nephrotoxic drugs such as MARICARMEN/ARB renally dose all medications improving Cr and making good urine output Stop Antibiotics as patient does not have a UTI Code(s): N17.9 - ACUTE KIDNEY FAILURE, UNSPECIFIED Qualifiers: Acute renal failure type: with acute renal cortical necrosis Qualified Code(s): N17.1 - Acute kidney failure with acute cortical necrosis (2) Colon cancer Assessment/Plan: s/p low anterior resection being followed by surgeon as outpt no active issues Code(s): C18.9 - MALIGNANT NEOPLASM OF COLON, UNSPECIFIED Qualifiers: Colon location: sigmoid Qualified Code(s): C18.7 - Malignant neoplasm of sigmoid colon (3) Dehydration Assessment/Plan: making good urine output maintenance fluids trend [facility] D/C lópez Code(s): E86.0 - DEHYDRATION (4) Hyponatremia Assessment/Plan: resolved Code(s): E87.1 - HYPO-OSMOLALITY AND HYPONATREMIA (5) Lactic acid acidosis Assessment/Plan: resolved Code(s): E87.2 - ACIDOSIS (6) High anion gap metabolic acidosis Assessment/Plan: resolved Code(s): E87.2 - ACIDOSIS (7) Hyperkalemia, diminished renal excretion Assessment/Plan: likely from renal failure resolved Code(s): E87.5 - HYPERKALEMIA (8) Hypertension Assessment/Plan: restart coreg weel controlled hold MARICARMEN/ARB Code(s): I10 - ESSENTIAL (PRIMARY) HYPERTENSION Qualifiers: Hypertension type: essential hypertension Qualified Code(s): I10 - Essential (primary) hypertension (9) Hyperlipidemia Assessment/Plan: continue statin Code(s): E78.5 - HYPERLIPIDEMIA, UNSPECIFIED Qualifiers: Hyperlipidemia type: unspecified Qualified Code(s): E78.5 - Hyperlipidemia, unspecified (10) Diabetes Assessment/Plan: BGM ACHS ISS hold metformin Code(s): E11.9 - TYPE 2 DIABETES MELLITUS WITHOUT COMPLICATIONS Assessment/Plan PPx: HSQ no gi ppx needed no deconsitioning issues FEN: 1/2NS with bicarb with 125ml/hr hyponatremia resolved renal diet
[2016-10-29] MEDS ORDERED: TAMSULOSIN HCL 0.4 MG CAP.ER.24H (FP) PO SCH (08:30)
--- NOTE | 2016-10-29 08:37 | PN ---
Physical Exam: SUBJECTIVE: Patient seen at the ICU at 0830 this morning, was sitting up eating breakfast, assured pt I would return later and examine him. He appeared comfortable, eating breakfast, denies any discomfort or pain. 1630: Patient examined at the bedside, now on a med surg floor. States he continues to feel well. Denies any pain, discomfort. Denies dizziness. OBJECTIVE: GENERAL: Awake, alert, and fully oriented, in no acute distress HEAD: Normal with no signs of trauma. EYES: Pupils equal, round and reactive to light LUNGS: Breath sounds equal, clear to auscultation bilaterally. HEART: Regular rate and rhythm ABDOMEN: Colostomy with pink stoma, liquid brown stool present, no pain on abdomen, tolerating diet MUSCULOSKELETAL: Normal range of motion at all joints. No bony deformities or tenderness. UPPER EXTREMITIES: No cyanosis. No clubbing. No peripheral edema. LOWER EXTREMITIES: No calf tenderness. No peripheral edema. NEUROLOGICAL: Normal speech. Gait not pbserved, PT consulted PSYCHIATRIC: Appropriate mood and affect. Vital Signs Period Temp Pulse Resp BP Sys/Palacio Pulse Ox Last 24 Hr 97.8 F-99.0 F 56-98 14-20 108-136/68-90 100 Laboratory Results - last 24 hr 10/28/16 10/28/16 10/28/16 05:20 05:20 11:30 WBC RBC Hgb Hct MCV MCHC RDW Plt Count MPV Neutrophils % Lymphocytes % Monocytes % Eosinophils % Basophils % Sodium Potassium Chloride Carbon Dioxide Anion Gap BUN Creatinine Creat Clearance w eGFR POC Glucometer 122.88601 Random Glucose Hemoglobin A1c % 8.8 H Lactic Acid Calcium Phosphorus Magnesium Total Bilirubin AST ALT Alkaline Phosphatase Total Protein Albumin Hepatitis C Antibody <0.1 10/28/16 10/28/16 10/29/16 15:58 22:37 05:15 WBC 8.6 RBC 3.97 L Hgb 10.1 L Hct 30.4 L MCV 76.7 L MCHC 33.2 RDW 15.8 Plt Count 313 MPV 7.9 Neutrophils % 64.1 Lymphocytes % 19.4 Monocytes % 15.5 H Eosinophils % 0.6 D Basophils % 0.4 Sodium Potassium Chloride Carbon Dioxide Anion Gap BUN Creatinine Creat Clearance w eGFR POC Glucometer 199.15962 140.49122 Random Glucose Hemoglobin A1c % Lactic Acid Calcium Phosphorus Magnesium Total Bilirubin AST ALT Alkaline Phosphatase Total Protein Albumin Hepatitis C Antibody 10/29/16 10/29/16 10/29/16 05:15 05:15 06:19 WBC RBC Hgb Hct MCV MCHC RDW Plt Count MPV Neutrophils % Lymphocytes % Monocytes % Eosinophils % Basophils % Sodium 139 Potassium 4.0 Chloride 93 L Carbon Dioxide 32 D Anion Gap 14 BUN 47 H D Creatinine 6.4 H D Creat Clearance w eGFR 8.92 POC Glucometer 125.20483 Random Glucose 97 D Hemoglobin A1c % Lactic Acid 0.941 Calcium 7.7 L Phosphorus 5.0 H D Magnesium 1.8 Total Bilirubin 0.3 D AST 17 D ALT 23 Alkaline Phosphatase 75 Total Protein 6.1 L Albumin 2.8 L Hepatitis C Antibody Active Medications Generic Name Dose Route Start Last Admin Trade Name Freq PRN Reason Stop Dose Admin Atorvastatin Calcium 40 mg 10/27/16 22:00 10/28/16 21:18 Lipitor - PO 40 mg HS JESSICA Administration Calcium Acetate 667 mg 10/28/16 08:00 10/28/16 17:32 Phoslo - PO 667 mg TIDCM JESSICA Administration Carvedilol 12.5 mg 10/28/16 15:15 10/28/16 21:18 Coreg - PO 12.5 mg BID JESSICA Administration Ceftriaxone Sodium 1 gm 10/27/16 17:15 10/28/16 09:19 Rocephin 1gm Ivpb (Pre-Docked) IVPB 1 gm DAILY JESSICA Administration Chlorhexidine Gluconate 1 applic 10/27/16 22:00 10/28/16 21:19 Hibiclens For Decolonization - TP 1 applic HS JESSICA Administration Heparin Sodium (Porcine) 5,000 unit 10/27/16 22:00 10/28/16 21:18 Heparin - SQ 5,000 unit BID JESSICA Administration Sodium Bicarbonate 75 meq/ 1,075 mls @ 125 mls/hr 10/27/16 17:45 10/29/16 06:27 Sodium Chloride IV 125 mls/hr Q8H JESSICA Administration Insulin Aspart 1 vial 10/27/16 22:00 10/29/16 06:28 Novolog Vial Sliding Scale - SQ Not Given ACHS [facility] Protocol Mupirocin 1 applic 10/27/16 22:00 10/28/16 21:19 Bactroban Ointment (For Decolonization) - NS 11/01/16 21:59 1 applic BID JESSICA Administration Pilocarpine 0.5% 1 each 10/28/16 14:00 Opth Drops - Patient OU Own Med TID JESSICA Tamsulosin HCl 0.4 mg 10/29/16 08:30 Flomax - PO DAILY@0830 [facility] ASSESSMENT/PLAN: Patient is a 61 year old male with a significant past medical history of hypertension, hypercholesterolemia, CAD, diabetes mellitus, benign prostate hyperplasia and was recently diagnosed with colon cancer s/p low anterior rectosigmoid colon resection on 10/14/2016 at [facility]. He presented to the ED on 10/27/2016 after having three syncopal episodes. Patient states that he had a very poor appetite four days prior to admission and admits to poor PO intake and poor fluid intake. He also states he has poor urine output prior to admission. He also complained of dizziness on admission. In the ED, he was noted to have a BUN of 72, Creatinine of 12.7 and no urine output even after a lópez was placed. WBC also noted to be elevated at 29. Imaging: CT of abdomen and pelvis 10/27/2016 with no signs of bowel obstruction, no free air or fluid seen Renal Ultrasound 10/27/2016 shows no masses in the liver, normal visualized gallbladder, no significant findings, no ascites Chest xray 10/27/2016 without infiltrate or edema in lungs : Acute Kidney Injury - secondary to severe dehydration Assessment/Plan: On admission, BUN was 72, creatinine 12.7. Today, BUN/ Creatinine continues to improve: 47/6.4 He has had aggressive fluid administration, BUN/Cr improving on Sodium Bicarb 75meq @125/cc/hr Anuria, resolved - Total urine output of 5000cc Monitor strict I&Os and avoid any nephrotoxic medications Renal following Pyuria - improving Assessment/Plan: Urine with 29 WBC on admission Urine cultures with no growth Ceftriaxone stopped, monitor off antibiotics BPH - chronic Assessment/Plan: On Flomax 0.4mg daily Lactic acidosis - resolved Assessment/Plan: Lactic acidosis 5.070 > 0.941 Cardiology: Hypertension - chronic Assessment/Plan: Restarted on Coreq 12.5 mg BID, monitor BPs Coronary Artery Disease - chronic Assessment/Plan: On Lipitor 40mg @ HS Oncology: Colon cancer - new diagnosis He is s/p anterior recotsigmoid colon resection on 10/14/16 @ [facility] He has an oncologist that he will continue to follow for possible chemotherapy Also sees surgeon - last saw on 10/28/2016 Colostomy with brown liquid brown stool Endocrine: Diabetes Mellitus - chronic HgbA1c 8.8: continue Novolog, hold Metformin Adjust sliding scale for tighter control if BGMs remain elevated Monitor for now Neurology: Dizziness - resolved Assessment/Plan: Denies dizziness, pt states he has been ambulating without any difficulty Physical therapy consulted F.E.N. Fluids: Normal Saline w/bicarbonate @125cc/hr Electrolytes: BMP in a.m. Hyperkalemia: resolved (peaked at 6.3 > 4.0) Hyponatremia:resolved Nutrition: Low sodium diet/diabetic diet Prophylaxis: DVT: Heparin SC, ambulation GI: Protonix daily Physical therapy consult Disposition: Continues to require inpatient hospitalization. Full Code. Visit type - Emergency Visit Emergency Visit: Yes ED Registration Date: 10/27/16 Care time: The patient presented to the Emergency Department on the above date and was hospitalized for further evaluation of their emergent condition. - New Patient This patient is new to me today: No - Critical Care Critical Care patient: No - Discharge Referral Referred to [facility] Med [facility] No
[2016-10-29] MEDS: CARVEDILOL 12.5 MG TABLET (FP) PO SCH ×2 (09:53→21:07)
[2016-10-29] MEDS: cefTRIAXone 1 GM/50 ML BAG (PRE-DOCKED) IVPB SCH (09:53)
[2016-10-29] MEDS: CALCIUM ACETATE 667 MG CAPSULE (FP) PO SCH ×3 (09:53→17:51)
[2016-10-29] MEDS: MUPIROCIN 2% TOPICAL OINTMENT FOR DECOLONIZATION NS SCH ×2 (09:55→21:10)
[2016-10-29] MEDS: HEPARIN NA (PORCINE) 5,000 UNITS/ML 1ML VIAL SQ SCH ×2 (09:55→21:07)
[2016-10-29] MEDS ORDERED: PATIENT'S OWN MEDICATION (NON-FORMULARY) (Silodosin [Rapaflo] 8 MG) PO SCH (10:00)
[2016-10-29] MEDS ORDERED: SODIUM CHLORIDE 1,000 ML IV SCH (10:15)
--- NOTE | 2016-10-29 11:01 | PN ---
Teaching Attending Note Name of Resident: Stephen Elliott ATTENDING PHYSICIAN STATEMENT I saw and evaluated the patient. I reviewed the resident's note and discussed the case with the resident. I agree with the resident's findings and plan as documented. SUBJECTIVE: Patient seen and examined in the ICU. Overall feels better. No nausea, vomiting or diarrhea. (+) good urine output. No shortness of breath or chest pain. No fevers or chills. Intake & Output 10/26/16 10/27/16 10/28/16 10/29/16 23:59 23:59 23:59 23:59 Intake Total 4750 4400 1500 Output Total 55 6000 2500 Balance 4695 -1600 -1000 Weight 160 lb 11.472 oz 164 lb 0.383 oz 159 lb 6.307 oz Last Vital Signs Temp Pulse Resp BP Pulse Ox 98.4 F 72 18 128/77 100 10/29/16 06:00 10/29/16 06:00 10/29/16 06:00 10/29/16 06:00 10/28/16 20:46 Active Medications Atorvastatin Calcium (Lipitor -) 40 mg PO HS [facility] Last Admin: 10/28/16 21:18 Dose: 40 mg Calcium Acetate (Phoslo -) 667 mg PO TIDCM [facility] Last Admin: 10/29/16 09:53 Dose: 667 mg Carvedilol (Coreg -) 12.5 mg PO BID [facility] Last Admin: 10/29/16 09:53 Dose: 12.5 mg Chlorhexidine Gluconate (Hibiclens For Decolonization -) 1 applic TP HS [facility] Last Admin: 10/28/16 21:19 Dose: 1 applic Heparin Sodium (Porcine) (Heparin -) 5,000 unit SQ BID [facility] Last Admin: 10/29/16 09:55 Dose: 5,000 unit Sodium Chloride (Normal Saline -) 1,000 mls @ 125 mls/hr IV ASDIR [facility] Last Admin: 10/29/16 10:26 Dose: 125 mls/hr Insulin Aspart (Novolog Vial Sliding Scale -) 1 vial SQ ACHS [facility] PRN Reason: Protocol Last Admin: 10/29/16 10:13 Dose: 4 units Mupirocin (Bactroban Ointment (For Decolonization) -) 1 applic NS BID [facility] Stop: 11/01/16 21:59 Last Admin: 10/29/16 09:55 Dose: 1 applic Pilocarpine 0.5% Opth Drops - Patient Own Med 1 each OU TID JESSICA Tamsulosin HCl (Flomax -) 0.4 mg PO DAILY@0830 [facility] Last Admin: 10/29/16 09:54 Dose: 0.4 mg Gen: NAD at rest Heart: RRR Lung: decreased breath sounds at the bases Abd: soft, +ostomy pink Ext: no edema Laboratory Results - last 24 hr 10/28/16 10/28/16 10/28/16 05:20 05:20 11:30 WBC RBC Hgb Hct MCV MCHC RDW Plt Count MPV Neutrophils % Lymphocytes % Monocytes % Eosinophils % Basophils % Sodium Potassium Chloride Carbon Dioxide Anion Gap BUN Creatinine Creat Clearance w eGFR POC Glucometer 122.23837 Random Glucose Hemoglobin A1c % 8.8 H Lactic Acid Calcium Phosphorus Magnesium Total Bilirubin AST ALT Alkaline Phosphatase Total Protein Albumin Hepatitis C Antibody <0.1 10/28/16 10/28/16 10/29/16 15:58 22:37 05:15 WBC 8.6 RBC 3.97 L Hgb 10.1 L Hct 30.4 L MCV 76.7 L MCHC 33.2 RDW 15.8 Plt Count 313 MPV 7.9 Neutrophils % 64.1 Lymphocytes % 19.4 Monocytes % 15.5 H Eosinophils % 0.6 D Basophils % 0.4 Sodium Potassium Chloride Carbon Dioxide Anion Gap BUN Creatinine Creat Clearance w eGFR POC Glucometer 199.40793 140.89726 Random Glucose Hemoglobin A1c % Lactic Acid Calcium Phosphorus Magnesium Total Bilirubin AST ALT Alkaline Phosphatase Total Protein Albumin Hepatitis C Antibody 10/29/16 10/29/16 10/29/16 05:15 05:15 06:19 WBC RBC Hgb Hct MCV MCHC RDW Plt Count MPV Neutrophils % Lymphocytes % Monocytes % Eosinophils % Basophils % Sodium 139 Potassium 4.0 Chloride 93 L Carbon Dioxide 32 D Anion Gap 14 BUN 47 H D Creatinine 6.4 H D Creat Clearance w eGFR 8.92 POC Glucometer 125.34244 Random Glucose 97 D Hemoglobin A1c % Lactic Acid 0.941 Calcium 7.7 L Phosphorus 5.0 H D Magnesium 1.8 Total Bilirubin 0.3 D AST 17 D ALT 23 Alkaline Phosphatase 75 Total Protein 6.1 L Albumin 2.8 L Hepatitis C Antibody 10/29/16 10:09 WBC RBC Hgb Hct MCV MCHC RDW Plt Count MPV Neutrophils % Lymphocytes % Monocytes % Eosinophils % Basophils % Sodium Potassium Chloride Carbon Dioxide Anion Gap BUN Creatinine Creat Clearance w eGFR POC Glucometer 232.67328 Random Glucose Hemoglobin A1c % Lactic Acid Calcium Phosphorus Magnesium Total Bilirubin AST ALT Alkaline Phosphatase Total Protein Albumin Hepatitis C Antibody ASSESSMENT AND PLAN: Colon Ca s/p recent LAR Acute Kidney Injury likely from severe dehydration Hyperkalemia improved Lactic Acidosis Hyponatremia CAD HTN DM (?) UTI - continue IVF resuscitation - monitor urine output, creatinine - monitor lytes - Would monitor off antibiotics - PO as tolerated - OOB to chair - DVT prophylaxis - Floor Dr Kumari CCTime 35" Problem List - Problems (1) Acidosis Code(s): E87.2 - ACIDOSIS (2) Acute renal failure Code(s): N17.9 - ACUTE KIDNEY FAILURE, UNSPECIFIED Qualifiers: Acute renal failure type: with acute renal cortical necrosis Qualified Code(s): N17.1 - Acute kidney failure with acute cortical necrosis (3) Dehydration Code(s): E86.0 - DEHYDRATION (4) Hyponatremia Code(s): E87.1 - HYPO-OSMOLALITY AND HYPONATREMIA (5) Colon cancer Code(s): C18.9 - MALIGNANT NEOPLASM OF COLON, UNSPECIFIED Qualifiers: Colon location: sigmoid Qualified Code(s): C18.7 - Malignant neoplasm of sigmoid colon
[2016-10-29] MEDS: SODIUM CHLORIDE 1,000 ML IV SCH ×2 (12:26→22:29)
[2016-10-29] MEDS: PILOCARPINE OU SCH ×2 (14:08→14:09)
[2016-10-29 14:20] LABS: HEP B SURFACE AB Non Reactive (.)
--- NOTE | 2016-10-29 17:48 | PN ---
Progress Note, Physician History of Present Illness: Pt seen and examined at bedside. He is awake and alert. He feels better today. He complained from irritation from the lópez. - Current Medication List Current Medications: Active Medications Atorvastatin Calcium (Lipitor -) 40 mg PO HS [facility] Calcium Acetate (Phoslo -) 667 mg PO TIDCM [facility] Last Admin: 10/29/16 12:26 Dose: 667 mg Carvedilol (Coreg -) 12.5 mg PO BID [facility] Chlorhexidine Gluconate (Hibiclens For Decolonization -) 1 applic TP HS [facility] Heparin Sodium (Porcine) (Heparin -) 5,000 unit SQ BID JESSICA Sodium Chloride (Normal Saline -) 1,000 mls @ 125 mls/hr IV ASDIR [facility] Last Admin: 10/29/16 12:26 Dose: Not Given Insulin Aspart (Novolog Vial Sliding Scale -) 1 vial SQ ACHS [facility] PRN Reason: Protocol Mupirocin (Bactroban Ointment (For Decolonization) -) 1 applic NS BID [facility] Stop: 11/01/16 21:59 Non-Formulary Medication (Non-Formulary Med) 1 each OU TID JESSICA Tamsulosin HCl (Flomax -) 0.4 mg PO DAILY@0830 [facility] - Objective Vital Signs: Vital Signs Temperature 98.7 F 10/29/16 17:10 Pulse Rate 64 10/29/16 17:10 Respiratory Rate 20 10/29/16 17:10 Blood Pressure 114/72 10/29/16 17:10 O2 Sat by Pulse Oximetry (%) 100 10/29/16 09:00 Constitutional: Yes: Calm Eyes: Yes: Conjunctiva Clear HENT: Yes: Atraumatic Neck: Yes: Supple Cardiovascular: Yes: S1, S2 Respiratory: Yes: CTA Bilaterally Gastrointestinal: Yes: Normal Bowel Sounds, Soft, Other (colostomy) Musculoskeletal: Yes: WNL Extremities: Yes: WNL Edema: No Neurological: Yes: Oriented Psychiatric: Yes: Oriented Labs: CBC, BMP 10/29/16 05:15 10/29/16 05:15 INR, PTT INR 1.29 (0.82-1.09) H 10/28/16 05:20 Assessment/Plan Current Medications Generic Name Dose Route Start Last Admin Trade Name Freq PRN Reason Stop Dose Admin Atorvastatin Calcium 40 mg 10/29/16 22:00 Lipitor - PO HS [facility] Calcium Acetate 667 mg 10/29/16 12:00 10/29/16 12:26 Phoslo - PO 667 mg TIDCM [facility] Administration Carvedilol 12.5 mg 10/29/16 22:00 Coreg - PO BID [facility] Chlorhexidine Gluconate 1 applic 10/29/16 22:00 Hibiclens For Decolonization - TP HS [facility] Heparin Sodium (Porcine) 5,000 unit 10/29/16 22:00 Heparin - SQ BID [facility] Sodium Chloride 1,000 mls @ 125 mls/hr 10/29/16 11:31 10/29/16 12:26 Normal Saline - IV Not Given ASDIR [facility] Insulin Aspart 1 vial 10/29/16 16:30 Novolog Vial Sliding Scale - SQ ACHS [facility] Protocol Mupirocin 1 applic 10/29/16 22:00 Bactroban Ointment (For Decolonization) - NS 11/01/16 21:59 BID [facility] Non-Formulary Medication 1 each 10/29/16 14:00 Non-Formulary Med OU TID [facility] Tamsulosin HCl 0.4 mg 10/30/16 08:30 Flomax - PO DAILY@0830 [facility] Laboratory Tests 10/28/16 05:20 KACI Screen Pending Hep Bs Antigen Negative Hep Bs Antibody Non reactive Hep B Core Total Ab Negative Hepatitis C Antibody <0.1 Laboratory Tests 10/29/16 05:15 Phosphorus 5.0 H D Impression 1. KEANU 2. hyperkalemia 3. DM 4. CAD 5. History of hypertension 6. hyperlipidemia 7. hyponatremia 8. colon cancer s/p resection 9. BPH Plan - renal function is improving - will change fluid to NS, will keep at 125 per hour - phos is improved, repeat in am, will likely stop phoslo tomorrow - encourage PO intake - no indication for HD - monitor urine output - discussed with ICU team earlier today - sodium is improved Dr Bueno
[2016-10-29] MEDS ORDERED: ATORVASTATIN CA 40 MG TABLET (FP) PO SCH (22:00)
[2016-10-29] MEDS ORDERED: CHLORHEXIDINE GLUCONATE 4% CLEANSER FOR DECOLONIZATION TP SCH (22:00)
[2016-10-30] MEDS: INSULIN SLIDING SCALE (NOVOLOG) 1 VIAL SQ SCH ×3 (06:19→16:36)
[2016-10-30] MEDS: SODIUM CHLORIDE 1,000 ML IV SCH ×2 (07:36→12:09)
[2016-10-30] MEDS: CALCIUM ACETATE 667 MG CAPSULE (FP) PO SCH ×2 (08:18→12:16)
[2016-10-30 08:25] LABS: BASOPHIL 0.8 % (0-2.0); EOSINOPHIL 1.5 % (0-4.5); MCHC 33.1 g/dl (32.0-35.9); MEAN CELL VOLUME 78.6 fl (80-96); MEAN PLT VOLUME 8.1 fl (7.5-11.1); NEUTROPHILS 63.4 % (42.8-82.8); PLATELET COUNT 255 K/MM3 (134-434); RDW 15.5 % (11.9-15.9)
[2016-10-30] MEDS ORDERED: TAMSULOSIN HCL 0.4 MG CAP.ER.24H (FP) PO SCH (08:30)
[2016-10-30 09:56] LABS: ALBUMIN 2.9 g/dl (3.4-5.0); BILIRUBIN,TOTAL 0.3 mg/dL (0.2-1.0); CALCIUM 7.2 mg/dL (8.5-10.1); CREATININE 2.9 mg/dL (0.7-1.3); PHOSPHOROUS 2.8 mg/dL (2.5-4.9); TOT PROT 6.3 g/dl (6.4-8.2)
--- NOTE | 2016-10-30 10:02 | PN ---
Physical Exam: SUBJECTIVE: Patient seen and examined OBJECTIVE: Vital Signs Period Temp Pulse Resp BP Sys/Palacio Pulse Ox Last 24 Hr 98.1 F-98.7 F 64-104 16-20 114-145/72-89 98 GENERAL: The patient is awake, alert, and fully oriented, in no acute distress. HEAD: Normal with no signs of trauma. EYES: PERRL, extraocular movements intact, sclera anicteric, conjunctiva clear. No ptosis. ENT: Ears normal, nares patent, oropharynx clear without exudates, moist mucous membranes. NECK: Trachea midline, full range of motion, supple. LUNGS: Breath sounds equal, clear to auscultation bilaterally, no wheezes, no crackles, no accessory muscle use. HEART: Regular rate and rhythm, S1, S2 without murmur, rub or gallop. ABDOMEN: Soft, nontender, nondistended, normoactive bowel sounds, no guarding, no rebound, no hepatosplenomegaly, no masses. EXTREMITIES: 2+ pulses, warm, well-perfused, no edema. NEUROLOGICAL: Cranial nerves II through XII grossly intact. Normal speech, gait not observed. PSYCH: Normal mood, normal affect. SKIN: Warm, dry, normal turgor, no rashes or lesions noted Laboratory Results - last 24 hr 10/28/16 10/29/16 10/29/16 05:20 10:09 17:41 WBC RBC Hgb Hct MCV MCHC RDW Plt Count MPV Neutrophils % Lymphocytes % Monocytes % Eosinophils % Basophils % Sodium Potassium Chloride Carbon Dioxide Anion Gap BUN Creatinine Creat Clearance w eGFR POC Glucometer 232.14072 157 Random Glucose Calcium Phosphorus Total Bilirubin AST ALT Alkaline Phosphatase Total Protein Albumin KACI Screen Negative Hepatitis A IgM Ab Negative Hepatitis A Ab Total Positive H Hep Bs Antigen Negative Hep Bs Antibody Non reactive Hep B Core Total Ab Negative 10/29/16 10/30/16 10/30/16 21:06 05:40 06:30 WBC RBC Hgb Hct MCV MCHC RDW Plt Count MPV Neutrophils % Lymphocytes % Monocytes % Eosinophils % Basophils % Sodium 139 Potassium 3.8 Chloride 103 D Carbon Dioxide 24 D Anion Gap 12 BUN 27 H D Creatinine 2.9 H D Creat Clearance w eGFR 22.23 POC Glucometer 160 105 Random Glucose 90 Calcium 7.2 L Phosphorus 2.8 D Total Bilirubin 0.3 AST 18 ALT 22 Alkaline Phosphatase 70 Total Protein 6.3 L Albumin 2.9 L KACI Screen Hepatitis A IgM Ab Hepatitis A Ab Total Hep Bs Antigen Hep Bs Antibody Hep B Core Total Ab 10/30/16 06:30 WBC 9.0 RBC 3.77 L Hgb 9.8 L Hct 29.6 L MCV 78.6 L MCHC 33.1 RDW 15.5 Plt Count 255 MPV 8.1 Neutrophils % 63.4 Lymphocytes % 21.9 Monocytes % 12.4 H Eosinophils % 1.5 D Basophils % 0.8 Sodium Potassium Chloride Carbon Dioxide Anion Gap BUN Creatinine Creat Clearance w eGFR POC Glucometer Random Glucose Calcium Phosphorus Total Bilirubin AST ALT Alkaline Phosphatase Total Protein Albumin KACI Screen Hepatitis A IgM Ab Hepatitis A Ab Total Hep Bs Antigen Hep Bs Antibody Hep B Core Total Ab Active Medications Generic Name Dose Route Start Last Admin Trade Name Freq PRN Reason Stop Dose Admin Atorvastatin Calcium 40 mg 10/29/16 22:00 10/29/16 21:07 Lipitor - PO 40 mg HS JESSICA Administration Calcium Acetate 667 mg 10/29/16 12:00 10/30/16 08:18 Phoslo - PO 667 mg TIDCM JESSICA Administration Carvedilol 12.5 mg 10/29/16 22:00 10/29/16 21:07 Coreg - PO 12.5 mg BID JESSICA Administration Chlorhexidine Gluconate 1 applic 10/29/16 22:00 10/29/16 21:11 Hibiclens For Decolonization - TP Not Given HS JESSICA Heparin Sodium (Porcine) 5,000 unit 10/29/16 22:00 10/29/16 21:07 Heparin - SQ 5,000 unit BID JESSICA Administration Sodium Chloride 1,000 mls @ 125 mls/hr 10/29/16 11:31 10/30/16 07:36 Normal Saline - IV 125 mls/hr ASDIR [facility] Administration Insulin Aspart 1 vial 10/29/16 16:30 10/30/16 06:19 Novolog Vial Sliding Scale - SQ Not Given ACHS [facility] Protocol Mupirocin 1 applic 10/29/16 22:00 10/29/16 21:10 Bactroban Ointment (For Decolonization) - NS 11/01/16 21:59 Not Given BID [facility] Non-Formulary Medication 1 each 10/29/16 14:00 Non-Formulary Med OU TID JESSICA Tamsulosin HCl 0.4 mg 10/30/16 08:30 10/30/16 08:18 Flomax - PO 0.4 mg DAILY@0830 [facility] Administration ASSESSMENT/PLAN:
[2016-10-30] MEDS: HEPARIN NA (PORCINE) 5,000 UNITS/ML 1ML VIAL SQ SCH (10:13)
[2016-10-30] MEDS: MUPIROCIN 2% TOPICAL OINTMENT FOR DECOLONIZATION NS SCH (10:13)
[2016-10-30] MEDS: CARVEDILOL 12.5 MG TABLET (FP) PO SCH (10:13)
--- NOTE | 2016-10-30 13:25 | PN ---
Progress Note, Physician History of Present Illness: Pt seen and examined at bedside. He is awake and alert. He says he feels much better. - Current Medication List Current Medications: Active Medications Atorvastatin Calcium (Lipitor -) 40 mg PO [facility] Last Admin: 10/29/16 21:07 Dose: 40 mg Calcium Acetate (Phoslo -) 667 mg PO TIDCM [facility] Last Admin: 10/30/16 12:16 Dose: 667 mg Carvedilol (Coreg -) 12.5 mg PO BID [facility] Last Admin: 10/30/16 10:13 Dose: 12.5 mg Chlorhexidine Gluconate (Hibiclens For Decolonization -) 1 applic TP HS [facility] Last Admin: 10/29/16 21:11 Dose: Not Given Heparin Sodium (Porcine) (Heparin -) 5,000 unit SQ BID [facility] Last Admin: 10/30/16 10:13 Dose: 5,000 unit Sodium Chloride (Normal Saline -) 1,000 mls @ 125 mls/hr IV ASDIR [facility] Last Admin: 10/30/16 12:09 Dose: 125 mls/hr Insulin Aspart (Novolog Vial Sliding Scale -) 1 vial SQ [facility] PRN Reason: Protocol Last Admin: 10/30/16 12:15 Dose: 2 units Mupirocin (Bactroban Ointment (For Decolonization) -) 1 applic NS BID [facility] Stop: 11/01/16 21:59 Last Admin: 10/30/16 10:13 Dose: Not Given Non-Formulary Medication (Non-Formulary Med) 1 each OU TID [facility] Tamsulosin HCl (Flomax -) 0.4 mg PO DAILY@0830 [facility] Last Admin: 10/30/16 08:18 Dose: 0.4 mg - Objective Vital Signs: Vital Signs Temperature 97.8 F 10/30/16 11:20 Pulse Rate 64 10/30/16 11:20 Respiratory Rate 18 10/30/16 11:20 Blood Pressure 160/96 10/30/16 11:20 O2 Sat by Pulse Oximetry (%) 100 10/30/16 09:00 Constitutional: Yes: Calm Eyes: Yes: Conjunctiva Clear HENT: Yes: Atraumatic Cardiovascular: Yes: S1, S2 Respiratory: Yes: CTA Bilaterally Gastrointestinal: Yes: Normal Bowel Sounds, Soft, Other (colostomy) Genitourinary: Yes: WNL Musculoskeletal: Yes: WNL Extremities: Yes: WNL Edema: No Neurological: Yes: Oriented Psychiatric: Yes: Oriented Labs: CBC, BMP 10/30/16 06:30 10/30/16 06:30 INR, PTT INR 1.29 (0.82-1.09) H 10/28/16 05:20 Assessment/Plan Current Medications Generic Name Dose Route Start Last Admin Trade Name Junitoq PRN Reason Stop Dose Admin Atorvastatin Calcium 40 mg 10/29/16 22:00 10/29/16 21:07 Lipitor - PO 40 mg HS JESSICA Administration Calcium Acetate 667 mg 10/29/16 12:00 10/30/16 12:16 Phoslo - PO 667 mg TIDCM [facility]ESS[facility] Administration Carvedilol 12.5 mg 10/29/16 22:00 10/30/16 10:13 Coreg - PO 12.5 mg BID JESS[facility] Administration Chlorhexidine Gluconate 1 applic 10/29/16 22:00 10/29/16 21:11 Hibiclens For Decolonization - TP Not Given HS JESSICA Heparin Sodium (Porcine) 5,000 unit 10/29/16 22:00 10/30/16 10:13 Heparin - SQ 5,000 unit BID [facility] Administration Sodium Chloride 1,000 mls @ 125 mls/hr 10/29/16 11:31 10/30/16 12:09 Normal Saline - IV 125 mls/hr ASDIR [facility] Administration Insulin Aspart 1 vial 10/29/16 16:30 10/30/16 12:15 Novolog Vial Sliding Scale - SQ 2 units ACHS [facility] Administration Protocol Mupirocin 1 applic 10/29/16 22:00 10/30/16 10:13 Bactroban Ointment (For Decolonization) - NS 11/01/16 21:59 Not Given BID JESS[facility] Non-Formulary Medication 1 each 10/29/16 14:00 Non-Formulary Med OU TID JESSICA Tamsulosin HCl 0.4 mg 10/30/16 08:30 10/30/16 08:18 Flomax - PO 0.4 mg DAILY@0830 [facility] Administration Laboratory Tests 10/28/16 10/30/16 05:20 06:30 Phosphorus 2.8 D KACI Screen Negative Hep Bs Antigen Negative Hep Bs Antibody Non reactive Hep B Core Total Ab Negative Hepatitis C Antibody <0.1 Impression 1. KEANU 2. hyperkalemia 3. DM 4. CAD 5. History of hypertension 6. hyperlipidemia 7. hyponatremia 8. colon cancer s/p resection 9. BPH Plan - renal function continues to improve - will keep on fluids until the am - will stop phoslo as phos levels are improved - encourage PO intake and hydration - spoke to pt to monitor the output of the ostomy - no indication for HD - monitor urine output - discussed with primary team - sodium is improved Dr Bueno
[2016-10-30] MEDS ORDERED: POTASSIUM CHLORIDE TABS 20 MEQ TABLET.ER (FP) PO ONE (13:45)
[2016-10-30 14:10] VITALS: BP 151/94; PULSE 68; TEMP 98.2
--- NOTE | 2016-10-30 14:54 | PN ---
Physical Exam: SUBJECTIVE: Patient seen and examined OBJECTIVE: Vital Signs Period Temp Pulse Resp BP Sys/Palacio Pulse Ox Last 24 Hr 97.8 F-98.7 F 64-104 16-20 114-160/72-96 98-100 GENERAL: The patient is awake, alert, and fully oriented, in no acute distress. HEAD: Normal with no signs of trauma. EYES: PERRL, extraocular movements intact, sclera anicteric, conjunctiva clear. No ptosis. ENT: Ears normal, nares patent, oropharynx clear without exudates, moist mucous membranes. NECK: Trachea midline, full range of motion, supple. LUNGS: Breath sounds equal, clear to auscultation bilaterally, no wheezes, no crackles, no accessory muscle use. HEART: Regular rate and rhythm, S1, S2 without murmur, rub or gallop. ABDOMEN: Soft, nontender, nondistended, normoactive bowel sounds, no guarding, no rebound, no hepatosplenomegaly, no masses. EXTREMITIES: 2+ pulses, warm, well-perfused, no edema. NEUROLOGICAL: Cranial nerves II through XII grossly intact. Normal speech, gait not observed. PSYCH: Normal mood, normal affect. SKIN: Warm, dry, normal turgor, no rashes or lesions noted Laboratory Results - last 24 hr 10/28/16 10/29/16 10/29/16 05:20 17:41 21:06 WBC RBC Hgb Hct MCV MCHC RDW Plt Count MPV Neutrophils % Lymphocytes % Monocytes % Eosinophils % Basophils % Sodium Potassium Chloride Carbon Dioxide Anion Gap BUN Creatinine Creat Clearance w eGFR POC Glucometer 157 160 Random Glucose Calcium Phosphorus Total Bilirubin AST ALT Alkaline Phosphatase Total Protein Albumin KACI Screen Negative 10/30/16 10/30/16 10/30/16 05:40 06:30 06:30 WBC 9.0 RBC 3.77 L Hgb 9.8 L Hct 29.6 L MCV 78.6 L MCHC 33.1 RDW 15.5 Plt Count 255 MPV 8.1 Neutrophils % 63.4 Lymphocytes % 21.9 Monocytes % 12.4 H Eosinophils % 1.5 D Basophils % 0.8 Sodium 139 Potassium 3.8 Chloride 103 D Carbon Dioxide 24 D Anion Gap 12 BUN 27 H D Creatinine 2.9 H D Creat Clearance w eGFR 22.23 POC Glucometer 105 Random Glucose 90 Calcium 7.2 L Phosphorus 2.8 D Total Bilirubin 0.3 AST 18 ALT 22 Alkaline Phosphatase 70 Total Protein 6.3 L Albumin 2.9 L KACI Screen 10/30/16 12:14 WBC RBC Hgb Hct MCV MCHC RDW Plt Count MPV Neutrophils % Lymphocytes % Monocytes % Eosinophils % Basophils % Sodium Potassium Chloride Carbon Dioxide Anion Gap BUN Creatinine Creat Clearance w eGFR POC Glucometer 162 Random Glucose Calcium Phosphorus Total Bilirubin AST ALT Alkaline Phosphatase Total Protein Albumin KACI Screen Active Medications Generic Name Dose Route Start Last Admin Trade Name Selena PRN Reason Stop Dose Admin Atorvastatin Calcium 40 mg 10/29/16 22:00 10/29/16 21:07 Lipitor - PO 40 mg HS JESSICA Administration Carvedilol 12.5 mg 10/29/16 22:00 10/30/16 10:13 Coreg - PO 12.5 mg BID JESSICA Administration Chlorhexidine Gluconate 1 applic 10/29/16 22:00 10/29/16 21:11 Hibiclens For Decolonization - TP Not Given HS JESSICA Heparin Sodium (Porcine) 5,000 unit 10/29/16 22:00 10/30/16 10:13 Heparin - SQ 5,000 unit BID JESSICA Administration Sodium Chloride 1,000 mls @ 125 mls/hr 10/29/16 11:31 10/30/16 12:09 Normal Saline - IV 125 mls/hr ASDIR JESSICA Administration Insulin Aspart 1 vial 10/29/16 16:30 10/30/16 12:15 Novolog Vial Sliding Scale - SQ 2 units ACHS JESSICA Administration Protocol Mupirocin 1 applic 10/29/16 22:00 10/30/16 10:13 Bactroban Ointment (For Decolonization) - NS 11/01/16 21:59 Not Given BID JESSICA Non-Formulary Medication 1 each 10/29/16 14:00 Non-Formulary Med OU TID JESSICA Tamsulosin HCl 0.4 mg 10/30/16 08:30 10/30/16 08:18 Flomax - PO 0.4 mg DAILY@0830 JESSICA Administration ASSESSMENT/PLAN: Patient is a 61 year old male with a significant past medical history of hypertension, hypercholesterolemia, CAD, diabetes mellitus, benign prostate hyperplasia and was recently diagnosed with colon cancer s/p low anterior rectosigmoid colon resection on 10/14/2016 at [facility]. He presented to the ED on 10/27/2016 after having three syncopal episodes. Patient states that he had a very poor appetite four days prior to admission and admits to poor PO intake and poor fluid intake. He also states he has poor urine output prior to admission. He also complained of dizziness on admission. In the ED, he was noted to have a BUN of 72, Creatinine of 12.7 and no urine output even after a lópez was placed. WBC also noted to be elevated at 29. Imaging: CT of abdomen and pelvis 10/27/2016 with no signs of bowel obstruction, no free air or fluid seen Renal Ultrasound 10/27/2016 shows no masses in the liver, normal visualized gallbladder, no significant findings, no ascites Chest xray 10/27/2016 without infiltrate or edema in lungs : Acute Kidney Injury - improving Assessment/Plan: On admission, BUN was 72, creatinine 12.7. Today, BUN/ Creatinine continues to improve: 27/2.9. He has had aggressive fluid administration and will see his Oncologist on Wednesday who will repeat labs. Anuria, resolved - Good urine output Pyuria - resolved Assessment/Plan: Urine cultures with no growth Ceftriaxone stopped, monitor off antibiotics BPH - chronic Assessment/Plan: On Flomax 0.4mg daily Lactic acidosis - resolved Assessment/Plan: Lactic acidosis 5.070 > 0.941 Cardiology: Hypertension - chronic Assessment/Plan: Restarted on Coreq 12.5 mg BID, monitor BPs Coronary Artery Disease - chronic Assessment/Plan: On Lipitor 40mg @ HS Oncology: Colon cancer - new diagnosis He is s/p anterior recotsigmoid colon resection on 10/14/16 @ [facility] He has an oncologist that he will continue to follow for possible chemotherapy Also sees surgeon - last saw on 10/28/2016 Colostomy with brown liquid brown stool Endocrine: Diabetes Mellitus - chronic HgbA1c 8.8: on home Metformin Monitor for now Neurology: Dizziness - resolved Assessment/Plan: Denies dizziness, pt states he has been ambulating without any difficulty Physical therapy consulted F.E.N. Fluids: Normal Saline w/bicarbonate @125cc/hr Electrolytes: BMP in a.m. Hyperkalemia: resolved (peaked at 6.3 > 4.0) Hyponatremia:resolved Nutrition: Low sodium diet/diabetic diet Prophylaxis: DVT: Heparin SC, ambulation GI: Protonix daily Physical therapy consult Disposition: Continues to require inpatient hospitalization. Full Code.
--- NOTE | 2016-10-30 15:00 | DS ---
Physical Exam: SUBJECTIVE: Patient seen and examined. States he feels well today, asking to go home. He has an appointment with his Oncologist on Wednesday for possible start of chemotherapy. OBJECTIVE: GENERAL: Awake, alert, and fully oriented, in no acute distress HEAD: Normal with no signs of trauma. EYES: Pupils equal, round and reactive to light LUNGS: Breath sounds equal, clear to auscultation bilaterally. HEART: Regular rate and rhythm ABDOMEN: Colostomy with pink stoma, liquid brown stool present, no pain on abdomen, tolerating diet MUSCULOSKELETAL: Normal range of motion at all joints. No bony deformities or tenderness. UPPER EXTREMITIES: No cyanosis. No clubbing. No peripheral edema. LOWER EXTREMITIES: No calf tenderness. No peripheral edema. NEUROLOGICAL: Normal speech. Gait not pbserved, PT consulted PSYCHIATRIC: Appropriate mood and affect. Vital Signs Period Temp Pulse Resp BP Sys/Palacio Pulse Ox Last 24 Hr 97.8 F-98.7 F 64-70 16-20 114-160/72-96 98-100 PHYSICAL EXAM LABS Laboratory Results - last 24 hr 10/28/16 10/29/16 10/29/16 05:20 17:41 21:06 WBC RBC Hgb Hct MCV MCHC RDW Plt Count MPV Neutrophils % Lymphocytes % Monocytes % Eosinophils % Basophils % Sodium Potassium Chloride Carbon Dioxide Anion Gap BUN Creatinine Creat Clearance w eGFR POC Glucometer 157 160 Random Glucose Calcium Phosphorus Total Bilirubin AST ALT Alkaline Phosphatase Total Protein Albumin KACI Screen Negative 10/30/16 10/30/16 10/30/16 05:40 06:30 06:30 WBC 9.0 RBC 3.77 L Hgb 9.8 L Hct 29.6 L MCV 78.6 L MCHC 33.1 RDW 15.5 Plt Count 255 MPV 8.1 Neutrophils % 63.4 Lymphocytes % 21.9 Monocytes % 12.4 H Eosinophils % 1.5 D Basophils % 0.8 Sodium 139 Potassium 3.8 Chloride 103 D Carbon Dioxide 24 D Anion Gap 12 BUN 27 H D Creatinine 2.9 H D Creat Clearance w eGFR 22.23 POC Glucometer 105 Random Glucose 90 Calcium 7.2 L Phosphorus 2.8 D Total Bilirubin 0.3 AST 18 ALT 22 Alkaline Phosphatase 70 Total Protein 6.3 L Albumin 2.9 L KACI Screen 10/30/16 12:14 WBC RBC Hgb Hct MCV MCHC RDW Plt Count MPV Neutrophils % Lymphocytes % Monocytes % Eosinophils % Basophils % Sodium Potassium Chloride Carbon Dioxide Anion Gap BUN Creatinine Creat Clearance w eGFR POC Glucometer 162 Random Glucose Calcium Phosphorus Total Bilirubin AST ALT Alkaline Phosphatase Total Protein Albumin KACI Screen HOSPITAL COURSE: Date of Admission:10/27/16 Date of Discharge: 10/30/16 ASSESSMENT/PLAN: Patient is a 61 year old male with a significant past medical history of hypertension, hypercholesterolemia, CAD, diabetes mellitus, benign prostate hyperplasia and was recently diagnosed with colon cancer s/p low anterior rectosigmoid colon resection on 10/14/2016 at [facility]. He presented to the ED on 10/27/2016 after having three syncopal episodes. Patient states that he had a very poor appetite four days prior to admission and admits to poor PO intake and poor fluid intake. He also states he has poor urine output prior to admission. He also complained of dizziness on admission. In the ED, he was noted to have a BUN of 72, Creatinine of 12.7 and no urine output even after a lópez was placed. WBC also noted to be elevated at 29. Imaging: CT of abdomen and pelvis 10/27/2016 with no signs of bowel obstruction, no free air or fluid seen Renal Ultrasound 10/27/2016 shows no masses in the liver, normal visualized gallbladder, no significant findings, no ascites Chest xray 10/27/2016 without infiltrate or edema in lungs : Acute Kidney Injury - improving Assessment/Plan: On admission, BUN was 72, creatinine 12.7. Today, BUN/ Creatinine continues to improve: 27/2.9 He has had aggressive fluid administration during hospitalization and encouraged to monitor intake and output Anuria, resolved Pyuria - resolved Assessment/Plan: Urine cultures with no growth Ceftriaxone stopped, monitor off antibiotics BPH - chronic Assessment/Plan: On Flomax 0.4mg daily Lactic acidosis - resolved Assessment/Plan: Lactic acidosis 5.070 > 0.941 Cardiology: Hypertension - chronic Assessment/Plan: Restarted on Coreq 12.5 mg BID, monitor BPs Coronary Artery Disease - chronic Assessment/Plan: On Lipitor 40mg @ HS Oncology: Colon cancer - new diagnosis He is s/p anterior recotsigmoid colon resection on 10/14/16 @ [facility] He has an oncologist that he will continue to follow for possible chemotherapy Colostomy with brown liquid brown stool Endocrine: Diabetes Mellitus - chronic start of Glipizide/Hold metformin until renal function improves Glucometer and strips ordered Neurology: Dizziness - resolved Assessment/Plan: Denies dizziness, pt states he has been ambulating without any difficulty Physical therapy walked with pt, steady gait, no dizziness reported disposition: Discharge home today with close followup with PCP and Oncologist. full code. Minutes to complete discharge: 60 Discharge Summary Reason For Visit: ACUTE RENAL FAILURE,HYPONATREMIA Current Active Problems Acidosis (Acute) Acute renal failure (Acute) Colon cancer (Acute) Dehydration (Acute) Diabetes (Acute) High anion gap metabolic acidosis (Acute) Hyperkalemia, diminished renal excretion (Acute) Hyperlipidemia (Acute) Hypertension (Acute) Hyponatremia (Acute) Lactic acid acidosis (Acute) Condition: Improved - Instructions Diet, Activity, Other Instructions: Please drink plenty of fluids as discussed. Monitor output from colostomy and replenish amount of fluids you put out. You will need to have your blood drawn. Your kidney function is not yet at baseline, but has improved since admission. Please return to the ER if you have any of the following: Inability to urinate weakness Edema Shortness of breath +++ Please do not take Metformin until you are cleared by your primary care physician as Metformin is contraindicated until your renal function normalizes. You have been started on Glipizide. You should obtain a glucometer and check your blood sugars. +++ A glucometer and strips have been called in also. Please keep track of your blood sugars and report an increase to your PCP so that they can adjust your diabetic medications. Referrals: Elliott Parham [Primary Care Provider] - Disposition: HOME - Home Medications Comprehensive Discharge Medication List: Ambulatory Orders Atorvastatin Ca [Lipitor] 40 mg PO HS 10/27/16 Carvedilol [Coreg] 12.5 mg PO BID 10/27/16 Linagliptin/Metformin HCl [Jentadueto 2.5 mg-850 mg Tab] 1 each PO BID 10/27/16 Olmesartan/Amlodipin/Hcthiazid [Tribenzor 20-5-12.5 mg Tablet] 1 each PO DAILY 10/27/16 Pilocarpine 0.5% [Pilostat 0.5% -] 1 drop OP TID 10/27/16 Silodosin [Rapaflo] 8 mg PO DAILY 10/27/16 This patient is new to me today: No Emergency Visit: Yes ED Registration Date: 10/27/16 Care time: The patient presented to the Emergency Department on the above date and was hospitalized for further evaluation of their emergent condition. Critical Care patient: No - Discharge Referral Referred to [facility] No
[2016-10-30] MEDS ORDERED: INSULIN (NOVOLOG) ASPART 100 UNITS/ML 10ML VIAL ONE (16:33)
[2016-10-30] MEDS: NON-FORMULARY MED OU SCH (18:51)
== END 2016-10-30 18:42 | disposition home or self-care (01) | DRG 683 ==
LOC: JER 12:02 → JERBED 14:33 → JICU 20:05 → J8W 10-29 13:52
PROVIDERS: ADMIT Internal Medicine; ATTEND Nurse Practitioner Family
DX: N17.9 Acute kidney failure, unspecified (principal); E87.2 Acidosis; E87.1 Hypo-osmolality and hyponatremia; I10 Essential (primary) hypertension; E78.00 Pure hypercholesterolemia, unspecified; I25.10 Atherosclerotic heart disease of native coronary artery without angina pectoris; E11.9 Type 2 diabetes mellitus without complications; N40.0 Benign prostatic hyperplasia without lower urinary tract symptoms; E87.5 Hyperkalemia; E86.0 Dehydration; Z85.038 Personal history of other malignant neoplasm of large intestine
CPT/HCPCS: 36415; 71010-TC; 74176-TC; 76705-TC; 76775-TC; 80048; 80053; 81003; 81015; 82009; 82150; 82436; 82550; 83036; 83605; 83690; 83735; 83880; 84100; 84133; 84300; 84484; 85025; 85027; 85610; 85730; 86038; 86704; 86706; 86708; 86803; 86850; 86900; 86901; 87040; 87045; 87046; 87086; 87324; 87340; 87449; 93005; 93010; 97116-GP; 97162-PG; 99285-25; J1644

== ENCOUNTER 2019-03-22 11:00 | Inpatient (IN) | payer BC, OTHER ==
--- NOTE | 2019-03-22 12:02 | PDOC ---
History of Present Illness - General Chief Complaint: Pain, Acute Stated Complaint: ABD PAIN Time Seen by Provider: 03/22/19 11:42 History Source: Patient - History of Present Illness Timing/Duration: reports: constant Abdominal Pain Onset Location: reports: other (R lower abd) Past History - Past Medical History Allergies/Adverse Reactions: Allergies Allergy/AdvReac Type Severity Reaction Status Date / Time No Known Allergies Allergy Verified 10/27/16 12:13 Home Medications: Ambulatory Orders Amlodipine Bes/Olmesartan Med [Amlodipine-Olmesartan 5-20 mg] 1 each PO DAILY Atorvastatin Ca [Lipitor] 40 mg PO HS 03/22/19 Carvedilol [Coreg -] 12.5 mg PO BID 03/22/19 Linaclotide [Linzess] 145 mcg PO DAILY 03/22/19 Tamsulosin HCl [Flomax] 0.4 mg PO DAILY 03/22/19 metFORMIN HCL [Metformin HCl] 850 mg PO BID 03/22/19 Cancer: Yes (COLON CA) Cardiac Disorders: Yes (CAD) COPD: No Diabetes: Yes (METFORMIN) GI Disorders: Yes (COLON CA S/P COLOSTOMY) Disorders: No HTN: Yes Hypercholesterolemia: Yes Liver Disease: No Thyroid Disease: No - Surgical History Abdominal Surgery: Yes (COLON CA RESECTION) Cardiac Surgery: Yes (STENT X 2) - Immunization History Immunization Up to Date: No - Suicide/Smoking/Psychosocial Hx Smoking History: Never smoked Have you smoked in the past 12 months: No Information on smoking cessation initiated: No Hx Alcohol Use: Yes Drug/Substance Use Hx: No Substance Use Type: None Hx Substance Use Treatment: No Review of Systems - Review of Systems Constitutional: No: Chills, Fever ABD/GI: No: Blood Streaked Bowels, Constipated, Diarrhea, Nausea, Rectal Bleeding, Vomiting, Tarry Stools : No: Dysuria, Flank Pain, Hematuria *Physical Exam - Vital Signs Last Vital Signs Temp Pulse Resp BP Pulse Ox 98.2 F 57 L 16 135/81 98 03/22/19 11:10 03/22/19 11:10 03/22/19 11:10 03/22/19 11:10 03/22/19 11:10 - Physical Exam General Appearance: Yes: Appropriately Dressed. No: Apparent Distress HEENT: positive: Normal Voice Neck: positive: Supple Respiratory/Chest: negative: Respiratory Distress Gastrointestinal/Abdominal: positive: Normal Bowel Sounds, Tender (well appearing surgical incision to R lower abd w/ painful induration to deep palpation), Soft. negative: Distended, Guarding, Rebound Musculoskeletal: negative: CVA Tenderness Integumentary: positive: Dry, Warm Neurologic: positive: Fully Oriented, Alert, Normal Mood/Affect ED Treatment Course - LABORATORY CBC & Chemistry Diagram: 03/22/19 12:19 03/22/19 12:19 Medical Decision Making - Medical Decision Making 03/22/19 11:58 63 yo male, h/o colon cancer, s/p surgery/chemo/xrt at [facility] in 2017, HLD, HTN, NIDDM, here w/ severe pain to site of surgical incision to R lower abd that started this am and is constant. Also reports feeling "a lump" to site. No constipation, BRBPR, n/v/f/c. No recent unexplained weight loss See exam Concern for possible incarcerated hernia to site of previous abd surgery for colon cancer vs SBO -pain control -labs -CT w/ IV/PO contrast 03/22/19 17:11 03/22/19 18:39 CT read as concentric wall thickening involving mid to distal small bowel loop in right upper pelvis with partial SBO. Labs unremarkable. Will consult with surgery at this time and admit. Patient made NPO w/ IVF running. No n/v at this time 03/22/19 18:55 Case d/w Dr Salguero of surgery, will see pt in am. *DC/Admit/Observation/Transfer Diagnosis at time of Disposition: SBO (small bowel obstruction) - Discharge Dispostion Condition at time of disposition: Fair Decision to Admit order: Yes - Referrals - Patient Instructions - Post Discharge Activity
[2019-03-22] MEDS ORDERED: KETOROLAC TROMETHAMINE 30 MG/1 ML VIAL IVPUSH ONE (12:03)
[2019-03-22] MEDS ORDERED: KETOROLAC TROMETHAMINE 30 MG/1 ML VIAL ONE (12:14)
[2019-03-22 12:37] LABS: BASO % 0.6 % (0-2.0); EOS % 0.6 % (0-4.5); HEMOGLOBIN 13.4 GM/dL (11.7-16.9); LYMPH % 16.8 % (8-40); MCH 28.1 pg (25.7-33.7); MCHC 33.5 g/dl (32.0-35.9); MEAN CELL VOLUME 83.7 fl (80-96); MONO % 6.7 % (3.8-10.2); NEUT % 75.3 % (42.8-82.8); PLATELET COUNT 302 K/MM3 (134-434); RBC 4.78 M/mm3 (4.00-5.60); RDW 14.2 % (11.9-15.9); WHITE BLOOD COUNT 10.6 K/mm3 (4.0-10.0)
[2019-03-22 12:46] LABS: EPI CELLS 1.8 /HPF (0-5/HPF); HYALINE CASTS 3 /lpf (0-8); PH,URINE 6.5 (5.0-8.0); URINE APPEARANCE CLEAR; URINE BACTERIA 1.4 /hpf (NEGATIVE); URINE BILIRUBIN NEGATIVE (NEGATIVE); URINE COLOR YELLOW; URINE GLUCOSE (UA) TRACE (NEGATIVE); URINE KETONE TRACE (NEGATIVE); URINE LEUK ESTERASE NEGATIVE (NEGATIVE); URINE NITRITE NEGATIVE (NEGATIVE); URINE PROTEIN 2+ (NEGATIVE); URINE RBC 2 /hpf (0-4); URINE UROBILINOGEN 0.2 mg/dL (0.2-1.0); URINE WBC 1 /hpf (0-5)
[2019-03-22 12:51] LABS: INR 1.05 (0.83-1.09); PROTHROMBIN TIME (PATIENT) 12.4 SEC (9.7-13.0)
[2019-03-22 13:03] LABS: ALBUMIN 3.8 g/dl (3.4-5.0); BILIRUBIN,TOTAL 0.7 mg/dL (0.2-1); BLOOD UREA NITROGEN 12.1 mg/dL (7-18); CALCIUM 8.8 mg/dL (8.5-10.1); CREATININE 0.9 mg/dL (0.55-1.3); TOT PROT 7.8 g/dl (6.4-8.2)
[2019-03-22] MEDS ORDERED: SODIUM CHLORIDE 1,000 ML IV STA (18:35)
--- NOTE | 2019-03-22 19:20 | HP ---
Admitting History and Physical - Primary Care Physician PCP: Dr. Elliott Parham [phone] - Admission History of Present Illness: Pt is a 63 yo M with a PMHx of HTN, HLD, NIDDM, CAD s/p 2 stents placed 8-9 yrs ago at [facility], DM, BPH, colon CA s/p lower anterior rectosigmoid colon resection (10/2016) followed by chemo/radiation and subsequent colostomy reversal 08/2017 at [facility] who presents today with acute onset R mid abd pain. The pain started about 7:30 this morning after getting home from taking his to work. Pain is localized to a lump around the site of his reversed colostomy scar. The pain is pressure- like, non radiating, 7-05/13, with no known relieving or aggravating factors. Prior to today, he has had some pain around the lump a few days ago, which resolved without intervention. Today the pain was more intense and was not relieved by 2 tabs of ibuprofen. No change in diet, bowel habit, daily activities or trauma. Pt at baseline has loose, non bloody bowel movements, s/p resection (on liness). Denies n/v, weight loss, fatigue, chills, fever, constipation, dysuria, urgency, cough, bone pain, focal or generalized weakness, vision changes. Per ED-case was d/w Dr Salguero who will see in the am CTAP: in comparison to the 2017 CT study, there is development of nonspecific concentric wall thickening with associated lumina narrowing noted involving a mid to distal small bowel loop within the R paramedian aspect of the upper pelvis, possibly inflammaotry/infectious disease versus possible neoplastic disease. there is resultant mild proximal small bowel dilatation consistent with mild partial obstruction. there was a small amount of free fluid is seen within the R lower pelvis ventrally. concentric wall thickening involving mid to distal small bowel loop in right upper pelvis with partial SBO. 0.5cm non obstructive L renal calculius, mild stable b/l adrenal gland thhickening, probable subcm adenomas vs hyperplasia. Lipase-214, WBC-10.6, History Source: Patient, Medical Record - Past Medical History Cardiovascular: Yes: CAD, HTN, Hyperlipdemia Gastrointestinal: Yes: Other (GI cancer ) Renal/: Yes: BPH Endocrine: Yes: Diabetes Mellitus - Past Surgical History Past Surgical History: Yes: Colostomy (low anterior resection ) - Smoking History Smoking history: Never smoked Have you smoked in the past 12 months: No - Alcohol/Substance Use Hx Alcohol Use: Yes Home Medications - Allergies Allergies/Adverse Reactions: Allergies Allergy/AdvReac Type Severity Reaction Status Date / Time No Known Allergies Allergy Verified 10/27/16 12:13 - Home Medications Home Medications: Ambulatory Orders Atorvastatin Ca [Lipitor] 40 mg PO HS 03/22/19 Carvedilol [Coreg -] 12.5 mg PO BID 03/22/19 Linaclotide [Linzess] 145 mcg PO DAILY 03/22/19 Tamsulosin HCl [Flomax] 0.4 mg PO DAILY 03/22/19 metFORMIN HCL [Metformin HCl] 850 mg PO BID 03/22/19 Review of Systems - Review of Systems Constitutional: denies: Chills, Diaphoresis, Fever, Unintentional Wgt. Loss Eyes: denies: Blurred Vision, Recent Change in Vision HENT: denies: Difficult Swallowing Neck: denies: Stiffness Cardiovascular: denies: Chest Pain, Edema, Shortness of Breath Respiratory: denies: Cough, Exercise Intolerance Gastrointestinal: reports: Abdominal Pain Genitourinary: denies: Burning, Discharge, Dysuria, Flank Pain Musculoskeletal: denies: Back Pain Neurological: denies: Change in LOC, Confusion Physical Examination Vital Signs: Vital Signs Temperature 98.2 F 03/22/19 11:10 Pulse Rate 57 L 03/22/19 11:10 Respiratory Rate 16 03/22/19 11:10 Blood Pressure 135/81 03/22/19 11:10 O2 Sat by Pulse Oximetry (%) 98 03/22/19 11:10 Constitutional: Yes: No Distress Eyes: Yes: Conjunctiva Clear, EOM Intact, PERRL HENT: Yes: Atraumatic Neck: Yes: Supple Cardiovascular: Yes: S1, S2 Respiratory: Yes: CTA Bilaterally Gastrointestinal: Yes: Normal Bowel Sounds, Other (RLQ healed scar, No visible/ palpable hernia). No: Pulsatile Mass, Tenderness Musculoskeletal: No: Back Pain, Joint Stiffness Edema: No Peripheral Pulses WNL: Yes Neurological: Yes: Alert, Oriented, Babinski negative. No: Aphasia, Confusion, Facial Droop ...Motor Strength: WNL Psychiatric: Yes: Alert, Oriented Labs: CBC, BMP 03/22/19 12:19 03/22/19 12:19 Imaging - Results Cat Scan: Report Reviewed Assessment/Plan Ambulatory Orders Amlodipine Bes/Olmesartan Med [Amlodipine-Olmesartan 5-20 mg] 1 each PO DAILY Atorvastatin Ca [Lipitor] 40 mg PO HS 03/22/19 Carvedilol [Coreg -] 12.5 mg PO BID 03/22/19 Linaclotide [Linzess] 145 mcg PO DAILY 03/22/19 Tamsulosin HCl [Flomax] 0.4 mg PO DAILY 03/22/19 metFORMIN HCL [Metformin HCl] 850 mg PO BID 03/22/19 CTAP: suggestive of partial obstruction Assessment/Plan: Pt is a 63 yo M with a PMHx of HTN, HLD, NIDDM, CAD s/p 2 stents placed 8-9 yrs ago at [facility], BPH, colon CA s/p lower anterior rectosigmoid colon resection (10/2016) followed by chemo/radiation and subsequent colostomy reversal 08/2017 at [facility] who presents today with acute onset R mid abd pain. Abdominal pain likely in setting of Partial SBO: Pt pain free when I saw s/p pain meds in ED No N/V NPO D5NS @75 [id number] Lyles will see in am Ca colon s/p chemo/radiotion and resection with colostomy reversal Appears to have been in remission S/p colostomy reversal: Pt reports a reducible incisional hernia No obvious hernia when we examined (probably completely reduced) CAD s/p Stents Per pt over 8-9 years Not on any documented antiplatelets Confirm in am May need to be held if pt requires a procedure Dm Pt denies being diabetic, reports he is on metformin for prevention HgbA1c Hold metformin ISS BGM BPH: Cont flomax HTN: Pt with elias and arb in meds Will need to be reconciled and pt counselled Will hold off diuretic NPO Fluids Pain mx Hold chemical ppx Visit type - Emergency Visit Emergency Visit: Yes ED Registration Date: 03/22/19 Care time: The patient presented to the Emergency Department on the above date and was hospitalized for further evaluation of their emergent condition. - New Patient This patient is new to me today: Yes Date on this admission: 03/22/19 - Critical Care Critical Care patient: No
--- NOTE | 2019-03-22 19:27 | PN ---
Teaching Attending Note Name of Resident: Waleska Sheth ATTENDING PHYSICIAN STATEMENT I saw and evaluated the patient. I reviewed the resident's note and discussed the case with the resident. I agree with the resident's findings and plan as documented. SUBJECTIVE: Patient is a 63 yo man with PMH of BPH, adenocarcinoma of the colon (had low anterior rectosigmoid colon resection (10/14/16) at [facility], [place], as well as chemo- and radiotherapy), HLD, HTN, NIDDM, and CAD (2 stents) who presents with severe pain to site of surgical incision in right lower abdomen. Pain started this morning and is constant. Also reports feeling "a lump" to site. No constipation, hematochezia, nausea, vomiting, fever or chills. No recent unexplained weight loss. OBJECTIVE: Alert Vital Signs Period Temp Pulse Resp BP Sys/Palacio Pulse Ox Last 24 Hr 98.2 F 57 16 135/81 98 HEENT: No Jaundice, eye redness or discharge, PERRLA, EOMI. Normocephalic, atraumatic. External ears are normal and hearing is grossly intact. No nasal discharge. Neck: Supple, nontender. No palpable adenopathy or thyromegaly. No JVD Chest: Good effort. Clear to auscultation and percussion. Heart: Regular. No S3, rub or murmur Abdomen: Not distended, soft, RLQ tenderness and no HSM. No rebound or guarding. Normal bowel sounds. Ext: Peripheral pulses intact. No leg edema. Skin: Warm and dry. No petechiae, rash or ecchymosis. Neuro: Alert. Oriented x3. CN 2-12 grossly intact. Sensation grossly intact in all four extremities and DTR are symmetric. Psych: Appropriate mood and affect. Good insight. Home Medications Medication Instructions Recorded Amlodipine Bes/Olmesartan Med 1 each PO DAILY 03/22/19 [Amlodipine-Olmesartan 5-20 mg] Atorvastatin Ca [Lipitor] 40 mg PO HS 03/22/19 Carvedilol [Coreg -] 12.5 mg PO BID 03/22/19 Linaclotide [Linzess] 145 mcg PO DAILY 03/22/19 Tamsulosin HCl [Flomax] 0.4 mg PO DAILY 03/22/19 metFORMIN HCL [Metformin HCl] 850 mg PO BID 03/22/19 Abnormal Lab Results 03/22/19 03/22/19 03/22/19 12:19 12:19 12:19 WBC 10.6 H Random Glucose 159 H Urine Protein 2+ H Urine Ketones Trace H ASSESSMENT AND PLAN: 1. Partial Small Bowel Obstruction - CT scan of abdomen and pelvis read as concentric wall thickening involving mid to distal small bowel loop in right upper pelvis with partial Small Bowel Obstruction. Patient got a dose of IV Toraldol and IV NS in the ER. Being kept NPO and will use IV Toradol PRN for pain control. Gentle IV fluid support. EKG pending. ER staff consulted Dr Salguero of surgery, who will see the patient in the morning. Will continue comprehensive care of all his comorbid conditions. Patient not on Plavix for his cardiac stents. 2. DM For now, we will hold the home diabetes drugs and implement sliding scale insulin regimen. Provide comprehensive diabetes care with patient teaching and counseling about the importance of adherence to prescribed diabetes regimen, euglycemia, eye care and foot care. 3. Hypertension - Restart suitable outpatient antihypertensive drugs when clinically appropriate. Revise regimen to ensure good BP control. Nonpharmacologic measures to control hypertension like weight loss, salt restriction and exercise discussed. 4. DVT prophylaxis - SCD for now. Start Lovenox 40 mg SQ q 24 hours after surgery. 5. Advance directives - Full code
[2019-03-22] MEDS: DEXTROSE 5%-NORMAL SALINE 1,000 ML IV SCH (21:22)
[2019-03-22] MEDS: TAMSULOSIN HCL 0.4 MG CAP PO SCH (21:22)
[2019-03-22] MEDS: INSULIN SLIDING SCALE (NOVOLOG) 1 VIAL SQ SCH (21:23)
[2019-03-22] MEDS ORDERED: ATORVASTATIN CA 40 MG TABLET (FP) PO SCH (22:00)
[2019-03-22] MEDS ORDERED: CARVEDILOL 12.5 MG TABLET (FP) ONE (22:18)
[2019-03-22] MEDS ORDERED: ATORVASTATIN CA 40 MG TABLET (FP) ONE (22:18)
[2019-03-22] MEDS: CARVEDILOL 12.5 MG TABLET (FP) PO SCH (22:38)
[2019-03-23] MEDS: DEXTROSE 5%-NORMAL SALINE 1,000 ML IV SCH (01:11)
[2019-03-23] MEDS: INSULIN SLIDING SCALE (NOVOLOG) 1 VIAL SQ SCH ×3 (01:13→10:17)
[2019-03-23 02:10] VITALS: BMI 27.1
[2019-03-23 06:49] LABS: BASO % 0.3 % (0-2.0); EOS % 2.4 % (0-4.5); HEMATOCRIT 36.7 % (35.4-49); HEMOGLOBIN 12.2 GM/dL (11.7-16.9); LYMPH % 28.8 % (8-40); MCH 27.9 pg (25.7-33.7); MCHC 33.2 g/dl (32.0-35.9); MEAN CELL VOLUME 83.9 fl (80-96); MEAN PLT VOLUME 7.8 fl (7.5-11.1); MONO % 12.2 % (3.8-10.2); NEUT % 56.3 % (42.8-82.8); PLATELET COUNT 274 K/MM3 (134-434); RBC 4.37 M/mm3 (4.00-5.60); RDW 13.9 % (11.9-15.9); WHITE BLOOD COUNT 6.9 K/mm3 (4.0-10.0)
[2019-03-23 07:21] LABS: ALBUMIN 3.3 g/dl (3.4-5.0); BILIRUBIN,TOTAL 1.4 mg/dL (0.2-1); BLOOD UREA NITROGEN 8.9 mg/dL (7-18); CREATININE 0.7 mg/dL (0.55-1.3); INR 1.11 (0.83-1.09); MAGNESIUM 1.9 mg/dL (1.8-2.4); PHOSPHOROUS 2.9 mg/dL (2.5-4.9); POTASSIUM 3.6 mmol/L (3.5-5.1); PROTHROMBIN TIME (PATIENT) 13.1 SEC (9.7-13.0); TOT PROT 6.6 g/dl (6.4-8.2)
[2019-03-23 07:24] LABS: ACTIVATED PTT 26.1 SECONDS (25.2-36.5)
--- NOTE | 2019-03-23 09:00 | PN ---
Physical Exam: SUBJECTIVE: Patient seen and examined. no acute events overnight. abd pain improved. denies fever, cp, sob, n/v/d. +BM OBJECTIVE: Vital Signs Period Temp Pulse Resp BP Sys/Palacio Pulse Ox Last 24 Hr 97.6 F-98.4 F 53-58 16-18 124-149/66-89 98-99 GENERAL: The patient is awake, alert, and fully oriented, in no acute distress. HEAD: Normal with no signs of trauma. EYES: PERRL, extraocular movements intact, sclera anicteric, conjunctiva clear. No ptosis. ENT: Ears normal, nares patent, oropharynx clear without exudates, moist mucous membranes. NECK: Trachea midline, full range of motion, supple. LUNGS: CTAB HEART: RRR, S1, S2 without murmur, rub or gallop. ABDOMEN: Soft, TTP RLQ, +surgical scar RLQ, nondistended, normoactive bowel sounds, no guarding, no rebound, no hepatosplenomegaly, no masses. EXTREMITIES: 2+ pulses, warm, well-perfused, no edema. NEUROLOGICAL: Cranial nerves II through XII grossly intact. Normal speech, gait not observed. PSYCH: Normal mood, normal affect. SKIN: Warm, dry, normal turgor, no rashes or lesions noted Laboratory Results - last 24 hr 03/22/19 03/22/19 03/22/19 12:19 12:19 12:19 WBC 10.6 H RBC 4.78 Hgb 13.4 Hct 40.0 D MCV 83.7 MCH 28.1 MCHC 33.5 RDW 14.2 Plt Count 302 MPV 8.0 Absolute Neuts (auto) 8.0 Neutrophils % 75.3 Lymphocytes % 16.8 D Monocytes % 6.7 Eosinophils % 0.6 Basophils % 0.6 Nucleated RBC % 0 PT with INR INR PTT (Actin FS) Sodium 138 Potassium 4.0 Chloride 102 Carbon Dioxide 28 Anion Gap 8 BUN 12.1 Creatinine 0.9 Est GFR (CKD-EPI)AfAm 104.98 Est GFR (CKD-EPI)NonAf 90.58 POC Glucometer Random Glucose 159 H Calcium 8.8 Phosphorus Magnesium Total Bilirubin 0.7 AST 17 ALT 27 Alkaline Phosphatase 96 Total Protein 7.8 Albumin 3.8 Lipase 214 Urine Color Yellow Urine Appearance Clear Urine pH 6.5 D Ur Specific [place] 1.024 Urine Protein 2+ H Urine Glucose (UA) Trace Urine Ketones Trace H Urine Blood Negative Urine Nitrite Negative Urine Bilirubin Negative Urine Urobilinogen 0.2 Ur Leukocyte Esterase Negative Urine WBC (Auto) 1 Urine RBC (Auto) 2 Urine Casts (Auto) 3 U Epithel Cells (Auto) 1.8 Urine Bacteria (Auto) 1.4 Blood Type Antibody Screen 03/22/19 03/22/19 03/22/19 12:19 12:19 21:19 WBC RBC Hgb Hct MCV MCH MCHC RDW Plt Count MPV Absolute Neuts (auto) Neutrophils % Lymphocytes % Monocytes % Eosinophils % Basophils % Nucleated RBC % PT with INR 12.40 INR 1.05 PTT (Actin FS) Sodium Potassium Chloride Carbon Dioxide Anion Gap BUN Creatinine Est GFR (CKD-EPI)AfAm Est GFR (CKD-EPI)NonAf POC Glucometer 103 Random Glucose Calcium Phosphorus Magnesium Total Bilirubin AST ALT Alkaline Phosphatase Total Protein Albumin Lipase Urine Color Urine Appearance Urine pH Ur Specific [place] Urine Protein Urine Glucose (UA) Urine Ketones Urine Blood Urine Nitrite Urine Bilirubin Urine Urobilinogen Ur Leukocyte Esterase Urine WBC (Auto) Urine RBC (Auto) Urine Casts (Auto) U Epithel Cells (Auto) Urine Bacteria (Auto) Blood Type B POSITIVE Antibody Screen Negative 03/23/19 03/23/19 03/23/19 01:12 05:48 06:00 WBC 6.9 RBC 4.37 Hgb 12.2 Hct 36.7 MCV 83.9 MCH 27.9 MCHC 33.2 RDW 13.9 Plt Count 274 MPV 7.8 Absolute Neuts (auto) 3.9 Neutrophils % 56.3 D Lymphocytes % 28.8 D Monocytes % 12.2 H D Eosinophils % 2.4 D Basophils % 0.3 Nucleated RBC % 0 PT with INR INR PTT (Actin FS) Sodium Potassium Chloride Carbon Dioxide Anion Gap BUN Creatinine Est GFR (CKD-EPI)AfAm Est GFR (CKD-EPI)NonAf POC Glucometer 113 145 Random Glucose Calcium Phosphorus Magnesium Total Bilirubin AST ALT Alkaline Phosphatase Total Protein Albumin Lipase Urine Color Urine Appearance Urine pH Ur Specific [place] Urine Protein Urine Glucose (UA) Urine Ketones Urine Blood Urine Nitrite Urine Bilirubin Urine Urobilinogen Ur Leukocyte Esterase Urine WBC (Auto) Urine RBC (Auto) Urine Casts (Auto) U Epithel Cells (Auto) Urine Bacteria (Auto) Blood Type Antibody Screen 03/23/19 03/23/19 06:00 06:00 WBC RBC Hgb Hct MCV MCH MCHC RDW Plt Count MPV Absolute Neuts (auto) Neutrophils % Lymphocytes % Monocytes % Eosinophils % Basophils % Nucleated RBC % PT with INR 13.10 H INR 1.11 H PTT (Actin FS) 26.1 Sodium 137 Potassium 3.6 Chloride 104 Carbon Dioxide 26 Anion Gap 7 L BUN 8.9 Creatinine 0.7 Est GFR (CKD-EPI)AfAm 116.40 Est GFR (CKD-EPI)NonAf 100.43 POC Glucometer Random Glucose 138 H Calcium 8.0 L Phosphorus 2.9 Magnesium 1.9 Total Bilirubin 1.4 H AST 16 ALT 23 Alkaline Phosphatase 82 Total Protein 6.6 Albumin 3.3 L Lipase Urine Color Urine Appearance Urine pH Ur Specific [place] Urine Protein Urine Glucose (UA) Urine Ketones Urine Blood Urine Nitrite Urine Bilirubin Urine Urobilinogen Ur Leukocyte Esterase Urine WBC (Auto) Urine RBC (Auto) Urine Casts (Auto) U Epithel Cells (Auto) Urine Bacteria (Auto) Blood Type Antibody Screen Active Medications Generic Name Dose Route Start Last Admin Trade Name Freq PRN Reason Stop Dose Admin Atorvastatin Calcium 40 mg 03/22/19 22:00 03/22/19 22:38 Lipitor - PO 40 mg HS JESSICA Administration Carvedilol 12.5 mg 03/22/19 22:00 03/22/19 22:38 Coreg - PO 12.5 mg BID JESSICA Administration Dextrose/Sodium Chloride 1,000 mls @ 75 mls/hr 03/22/19 21:00 03/23/19 01:11 D5-Ns - IV 75 mls/hr ASDIR JESSICA Administration Insulin Aspart 0 vial 03/22/19 21:00 03/23/19 05:50 Novolog Vial Sliding Scale - SQ Not Given Q4H [facility] Protocol Tamsulosin HCl 0.4 mg 03/22/19 21:00 03/22/19 21:22 Flomax - PO 0.4 mg DAILY JESSICA Administration [id number] CT/ABDOMEN & PELVIS CT WITH CONTR Abdomen and pelvis CT with contrast Clinical information: right lower abdominal pain to site of prior surgery; status post 2017 surgery for colon cancer multiplanar imaging was performed utilizing intravenous and oral contrast. In comparison to a prior CT study of 10/27/2016 interval development of concentric wall thickening is seen involving a mid to distal small bowel loop within the right paramedian aspect of the upper pelvis. There is mild perienteric soft tissue edema. Due to the described concentric wall thickening there is resultant luminal narrowing with mild dilatation of the more proximal small bowel. Administered oral contrast is noted to traverse the length of the small bowel and opacify the colon. Interval reversal of the right lower quadrant ostomy is noted. At the site of the prior ostomy an approximately 4 x 2.3 x 1.4 cm subcutaneous fluid collection is seen abutting the abdominal wall. Note is again made of surgical sutures along the rectosigmoid colon. A small amount of free fluid is seen within the right lower pelvis ventrally. No evidence of pneumoperitoneum, or abscess. The partially visualized appendix demonstrates no discrete abnormality. Interval development of diffuse fatty infiltration of the liver is noted. There is mild stable bilateral adrenal gland thickening. A unchanged 0.5 cm nonobstructing left renal calculus is seen. The spleen, pancreas, gallbladder, and right kidney demonstrate no discrete abnormality. There is no aortic aneurysm. No obvious lymphadenopathy is identified. The visualized osseous structures demonstrate no gross acute pathology. Development of mild bilateral subpleural opacity is seen within the partially imaged lower lung comer probably on the basis of dependent atelectasis. Impression: In comparison to a 2017 CT study of development of nonspecific concentric wall thickening with associated luminal narrowing is noted involving a mid to distal small bowel loop within the right paramedian aspect of the upper pelvis - ? inflammatory/infectious disease versus possible neoplastic disease. There is resultant mild proximal small bowel dilatation consistent with mild partial obstruction. Administered oral contrast is seen to traverse the small bowel and opacify the colon. A small amount of free fluid is seen within the right lower pelvis ventrally. Status post reversal of right lower quadrant ostomy. A small subcutaneous fluid collection is seen overlying the prior ostomy site. Mild stable bilateral adrenal gland thickening probably on the basis of subcentimeter adenomas versus hyperplasia. Biochemical evaluation is suggested. 0.5 cm nonobstructing left renal calculus. Reported By: Seng Gregory MD 03/22/19 2808 ASSESSMENT/PLAN: 63 yo M with a PMHx of HTN, HLD, NIDDM, CAD s/p 2 stents placed [address] [facility], BPH, colon CA s/p lower anterior rectosigmoid colon resection (2016) followed by chemo/radiation and subsequent colostomy reversal 08/2017 at [facility] who presents today with acute onset R mid abd pain. Abdominal pain likely in setting of Partial SBO: Improved Pt is now pain free No N/V +BM D5NS @75 Surgery Consulted, Dr Salguero spoke w/ surgery. given clinical improvement will trial PO, if tolerates can dc Ca colon s/p chemo/radiotion and resection with colostomy reversal Appears to have been in remission S/p colostomy reversal: Pt reports a reducible incisional hernia No obvious hernia on exam (probably completely reduced) CAD s/p Stents Per pt over 8-9 years Not on any documented antiplatelets, per pt was once on ASA but was told by his doctor that he doesn't need to take anymore Dm Pt denies being diabetic, reports he is on metformin for prevention HgbA1c 7.6 Hold metformin ISS BGM ACHS BPH: Cont flomax HTN: Pt denies elias and arb use Will hold off diuretic Pain mx Hold chemical ppx dispo m/s dc pending tolerating PO Visit type - Emergency Visit Emergency Visit: Yes ED Registration Date: 03/22/19 Care time: The patient presented to the Emergency Department on the above date and was hospitalized for further evaluation of their emergent condition. - New Patient This patient is new to me today: Yes Date on this admission: 03/23/19 - Critical Care Critical Care patient: No
[2019-03-23] MEDS: TAMSULOSIN HCL 0.4 MG CAP PO SCH (10:22)
[2019-03-23] MEDS: CARVEDILOL 12.5 MG TABLET (FP) PO SCH (10:23)
[2019-03-23] MEDS ORDERED: PATIENT'S OWN MEDICATION (NON-FORMULARY) (Linaclotide [Linzess] 145 MCG) PO SCH (12:30)
--- NOTE | 2019-03-23 14:31 | PN ---
Teaching Attending Note Name of Resident: aBljeet Davis ATTENDING PHYSICIAN STATEMENT I saw and evaluated the patient. I reviewed the resident's note and discussed the case with the resident. I agree with the resident's findings and plan as documented. SUBJECTIVE: Patient is comfortable with no acute distress, no shortness of breath, had a bowel movement today and tolerating diet well. OBJECTIVE: Vital Signs Temperature 97.9 F 03/23/19 09:00 Pulse Rate 69 03/23/19 09:00 Respiratory Rate 20 03/23/19 09:00 Blood Pressure 149/99 03/23/19 09:00 O2 Sat by Pulse Oximetry (%) 96 03/23/19 09:00 GENERAL: The patient is awake, alert, and fully oriented, in no acute distress. HEAD: Normal with no signs of trauma. EYES: PERRL, extraocular movements intact, sclera anicteric, conjunctiva clear. ENT: Ears normal, oropharynx clear without exudates, moist mucous membranes. NECK: Trachea midline, full range of motion, supple. LUNGS: Breath sounds equal, clear to auscultation bilaterally, no wheezes, no crackles, no accessory muscle use. HEART: Regular rate and rhythm, S1, S2 without murmur, rub or gallop. ABDOMEN: Soft, NT, ND, normoactive bowel sounds, no guarding, no rebound, no hepatosplenomegaly, no masses appreciated. small umbilical hernia. EXTREMITIES: 2+ pulses, warm, well-perfused, no edema. NEUROLOGICAL: Cranial nerves II through XII grossly intact. Normal speech, gait is stable. PSYCH: Normal mood, normal affect. SKIN: Warm, dry, normal turgor, no rashes or lesions noted CBCD WBC 6.9 K/mm3 (4.0-10.0) 03/23/19 06:00 RBC 4.37 M/mm3 (4.00-5.60) 03/23/19 06:00 Hgb 12.2 GM/dL (11.7-16.9) 03/23/19 06:00 Hct 36.7 % (35.4-49) 03/23/19 06:00 MCV 83.9 fl (80-96) 03/23/19 06:00 MCHC 33.2 g/dl (32.0-35.9) 03/23/19 06:00 RDW 13.9 % (11.9-15.9) 03/23/19 06:00 Plt Count 274 K/MM3 (134-434) 03/23/19 06:00 MPV 7.8 fl (7.5-11.1) 03/23/19 06:00 CMP Sodium 137 mmol/L (136-145) 03/23/19 06:00 Potassium 3.6 mmol/L (3.5-5.1) 03/23/19 06:00 Chloride 104 mmol/L (98-107) 03/23/19 06:00 Carbon Dioxide 26 mmol/L (21-32) 03/23/19 06:00 Anion Gap 7 MMOL/L (8-16) L 03/23/19 06:00 BUN 8.9 mg/dL (7-18) 03/23/19 06:00 Creatinine 0.7 mg/dL (0.55-1.3) 03/23/19 06:00 Random Glucose 138 mg/dL (74-106) H 03/23/19 06:00 Calcium 8.0 mg/dL (8.5-10.1) L 03/23/19 06:00 Total Bilirubin 1.4 mg/dL (0.2-1) H 03/23/19 06:00 AST 16 U/L (15-37) 03/23/19 06:00 ALT 23 U/L (13-61) 03/23/19 06:00 Alkaline Phosphatase 82 U/L (45-117) 03/23/19 06:00 Total Protein 6.6 g/dl (6.4-8.2) 03/23/19 06:00 Albumin 3.3 g/dl (3.4-5.0) L 03/23/19 06:00 Current Medications Generic Name Dose Route Start Last Admin Trade Name Freq PRN Reason Stop Dose Admin Atorvastatin Calcium 40 mg 03/22/19 22:00 03/22/19 22:38 Lipitor - PO 40 mg HS JESSICA Administration Carvedilol 12.5 mg 03/22/19 22:00 03/23/19 10:23 Coreg - PO 12.5 mg BID JESSICA Administration Dextrose/Sodium Chloride 1,000 mls @ 75 mls/hr 03/22/19 21:00 03/23/19 01:11 D5-Ns - IV 75 mls/hr ASDIR JESSICA Administration Insulin Aspart 1 vial 03/23/19 16:30 Novolog Vial Sliding Scale - SQ ACHS JESISCA Protocol Non-Formulary Medication 145 mcg 03/23/19 12:30 Linaclotide [Linzess] PO DAILY JESSICA Tamsulosin HCl 0.4 mg 03/22/19 21:00 03/23/19 10:22 Flomax - PO 0.4 mg DAILY JESSICA Administration Home Medications Medication Instructions Recorded Atorvastatin Ca [Lipitor] 40 mg PO HS 03/22/19 Carvedilol [Coreg -] 12.5 mg PO BID 03/22/19 Linaclotide [Linzess] 145 mcg PO DAILY 03/22/19 Tamsulosin HCl [Flomax] 0.4 mg PO DAILY 03/22/19 metFORMIN HCL [Metformin HCl] 850 mg PO BID 03/22/19 ASSESSMENT AND PLAN: Patient is a 63yo male with a PMHx of HTN, HLD, NIDDM, CAD s/p 2 stents placed 8 -9 yrs ago at [facility], BPH, colon CA s/p lower anterior rectosigmoid colon resection (10/2016) followed by chemo/radiation and subsequent colostomy reversal 08/2017 at [facility] who presents today with acute onset R mid abdominal pain. # acute abdominal pain with Partial SBO: Improved, patient is tolerating diet, the resident discussed with , patient can be discharged and follow up with his office within a week, also can see his own surgeon if he wishes. # Hx of Ca colon s/p chemo/radiation and resection with colostomy reversal with s/p colostomy reversal #CAD s/p Stents( over 8-9 years) , on coreg and lipitor continue # T2DM on metformin continue, given sr. seth's phone # for follow up ;HgbA1c 7.6. # Hx of BPH: cont flomax # Hx of HTN: continue Coreg Discharge patient home with followup with his own surgeon , also referred to
--- NOTE | 2019-03-23 14:31 | DS ---
Physical Exam: SUBJECTIVE: Patient seen and examined. no acute events overnight. abd pain improved. denies fever, cp, sob, n/v/d. +BM, tolerating PO OBJECTIVE: Vital Signs Period Temp Pulse Resp BP Sys/Palacio Pulse Ox Last 24 Hr 97.6 F-98.4 F 53-69 18-20 124-149/66-99 96-99 PHYSICAL EXAM GENERAL: The patient is awake, alert, and fully oriented, in no acute distress. HEAD: Normal with no signs of trauma. EYES: PERRL, extraocular movements intact, sclera anicteric, conjunctiva clear. No ptosis. ENT: Ears normal, nares patent, oropharynx clear without exudates, moist mucous membranes. NECK: Trachea midline, full range of motion, supple. LUNGS: CTAB HEART: RRR, S1, S2 without murmur, rub or gallop. ABDOMEN: Soft, TTP RLQ, +surgical scar RLQ, nondistended, normoactive bowel sounds, no guarding, no rebound, no hepatosplenomegaly, no masses. EXTREMITIES: 2+ pulses, warm, well-perfused, no edema. NEUROLOGICAL: Cranial nerves II through XII grossly intact. Normal speech, gait not observed. PSYCH: Normal mood, normal affect. SKIN: Warm, dry, normal turgor, no rashes or lesions noted LABS Laboratory Results - last 24 hr 03/22/19 03/23/19 03/23/19 21:19 01:12 05:48 WBC RBC Hgb Hct MCV MCH MCHC RDW Plt Count MPV Absolute Neuts (auto) Neutrophils % Lymphocytes % Monocytes % Eosinophils % Basophils % Nucleated RBC % PT with INR INR PTT (Actin FS) Sodium Potassium Chloride Carbon Dioxide Anion Gap BUN Creatinine Est GFR (CKD-EPI)AfAm Est GFR (CKD-EPI)NonAf POC Glucometer 103 113 145 Random Glucose Hemoglobin A1c % Calcium Phosphorus Magnesium Total Bilirubin AST ALT Alkaline Phosphatase Total Protein Albumin 03/23/19 03/23/19 03/23/19 06:00 06:00 06:00 WBC 6.9 RBC 4.37 Hgb 12.2 Hct 36.7 MCV 83.9 MCH 27.9 MCHC 33.2 RDW 13.9 Plt Count 274 MPV 7.8 Absolute Neuts (auto) 3.9 Neutrophils % 56.3 D Lymphocytes % 28.8 D Monocytes % 12.2 H D Eosinophils % 2.4 D Basophils % 0.3 Nucleated RBC % 0 PT with INR 13.10 H INR 1.11 H PTT (Actin FS) 26.1 Sodium 137 Potassium 3.6 Chloride 104 Carbon Dioxide 26 Anion Gap 7 L BUN 8.9 Creatinine 0.7 Est GFR (CKD-EPI)AfAm 116.40 Est GFR (CKD-EPI)NonAf 100.43 POC Glucometer Random Glucose 138 H Hemoglobin A1c % Calcium 8.0 L Phosphorus 2.9 Magnesium 1.9 Total Bilirubin 1.4 H AST 16 ALT 23 Alkaline Phosphatase 82 Total Protein 6.6 Albumin 3.3 L 03/23/19 06:00 WBC RBC Hgb Hct MCV MCH MCHC RDW Plt Count MPV Absolute Neuts (auto) Neutrophils % Lymphocytes % Monocytes % Eosinophils % Basophils % Nucleated RBC % PT with INR INR PTT (Actin FS) Sodium Potassium Chloride Carbon Dioxide Anion Gap BUN Creatinine Est GFR (CKD-EPI)AfAm Est GFR (CKD-EPI)NonAf POC Glucometer Random Glucose Hemoglobin A1c % 7.6 H Calcium Phosphorus Magnesium Total Bilirubin AST ALT Alkaline Phosphatase Total Protein Albumin 5423-9056 CT/ABDOMEN & PELVIS CT WITH CONTR Abdomen and pelvis CT with contrast Clinical information: right lower abdominal pain to site of prior surgery; status post 2017 surgery for colon cancer multiplanar imaging was performed utilizing intravenous and oral contrast. In comparison to a prior CT study of 10/27/2016 interval development of concentric wall thickening is seen involving a mid to distal small bowel loop within the right paramedian aspect of the upper pelvis. There is mild perienteric soft tissue edema. Due to the described concentric wall thickening there is resultant luminal narrowing with mild dilatation of the more proximal small bowel. Administered oral contrast is noted to traverse the length of the small bowel and opacify the colon. Interval reversal of the right lower quadrant ostomy is noted. At the site of the prior ostomy an approximately 4 x 2.3 x 1.4 cm subcutaneous fluid collection is seen abutting the abdominal wall. Note is again made of surgical sutures along the rectosigmoid colon. A small amount of free fluid is seen within the right lower pelvis ventrally. No evidence of pneumoperitoneum, or abscess. The partially visualized appendix demonstrates no discrete abnormality. Interval development of diffuse fatty infiltration of the liver is noted. There is mild stable bilateral adrenal gland thickening. A unchanged 0.5 cm nonobstructing left renal calculus is seen. The spleen, pancreas, gallbladder, and right kidney demonstrate no discrete abnormality. There is no aortic aneurysm. No obvious lymphadenopathy is identified. The visualized osseous structures demonstrate no gross acute pathology. Development of mild bilateral subpleural opacity is seen within the partially imaged lower lung comer probably on the basis of dependent atelectasis. Impression: In comparison to a 2017 CT study of development of nonspecific concentric wall thickening with associated luminal narrowing is noted involving a mid to distal small bowel loop within the right paramedian aspect of the upper pelvis - ? inflammatory/infectious disease versus possible neoplastic disease. There is resultant mild proximal small bowel dilatation consistent with mild partial obstruction. Administered oral contrast is seen to traverse the small bowel and opacify the colon. A small amount of free fluid is seen within the right lower pelvis ventrally. Status post reversal of right lower quadrant ostomy. A small subcutaneous fluid collection is seen overlying the prior ostomy site. Mild stable bilateral adrenal gland thickening probably on the basis of subcentimeter adenomas versus hyperplasia. Biochemical evaluation is suggested. 0.5 cm nonobstructing left renal calculus. Reported By: Seng Gregory MD 03/22/19 [id number] HOSPITAL COURSE: Date of Admission:03/22/19 Date of Discharge: 03/23/19 63 yo M with a PMHx of HTN, HLD, NIDDM, CAD s/p 2 stents placed 8-9 yrs ago at [facility], BPH, colon CA s/p lower anterior rectosigmoid colon resection (2016) followed by chemo/radiation and subsequent colostomy reversal 08/2017 at [facility] who presents today with acute onset R mid abd pain. Admitted for Partial SBO a seen on CT A/P. CT A/P reviewed above. pt was given pain meds and IVF. sxs improved. Pt is now pain free. No N/V. +BM and tolerating PO. Surgery Consulted, Dr Salguero. spoke w/ surgery. pt can dcd w/ outpt f/u given clinical improvement. CAD s/p Stents Per pt over 8-9 years Not on any documented antiplatelets, per pt was once on ASA but was told by his doctor that he doesn't need to take anymore outpt f/u w/ PCP, cardio Dm Pt denies being diabetic, reports he is on metformin for prevention HgbA1c 7.6 cont home metformin on dc BPH: Cont flomax on dc HTN: Pt denies elias and arb use bilateral adrenal gland thickening probably on the basis of subcentimeter adenomas versus hyperplasia - noted on CT. pt told to f/u outpt w/ PCP and Ezequile wallace pt stable and ready for dc w/ appropriate f/u Minutes to complete discharge: 37 Discharge Summary Reason For Visit: SMALL BOWEL OBSTRUCTION Current Active Problems SBO (small bowel obstruction) (Acute) Condition: Stable - Instructions Diet, Activity, Other Instructions: you came in for abdominal pain and was found to have a partial small bowel obstruction. your symptoms improved with pain meds and fluids please resume your home meds you had a CT scan which showed some enlargement of your adrenal glands. please follow up with your PCP about whether you need any further work up for this please follow up with Surgeon Dr Salguero in 1 week to evaluate your abdomen/ partial small bowel obstruction please follow up with your PCP in 1 week follow up with portfolio strategist Paige Alegre in 1 week to discuss your CT findings if you have fevers, chills worsening abdominal pain, nausea, vomit, diarrhea, or blood in stool please call 911 or go too the ER Referrals: Humble Salguero MD [Staff Physician] - 1 Week Noelle Nieves MD [Staff Physician] - 1 Week Disposition: HOME - Home Medications Comprehensive Discharge Medication List: Ambulatory Orders Atorvastatin Ca [Lipitor] 40 mg PO HS 03/22/19 Carvedilol [Coreg -] 12.5 mg PO BID 03/22/19 Linaclotide [Linzess] 145 mcg PO DAILY 03/22/19 Tamsulosin HCl [Flomax] 0.4 mg PO DAILY 03/22/19 metFORMIN HCL [Metformin HCl] 850 mg PO BID 03/22/19 This patient is new to me today: Yes Date on this admission: 03/23/19 Emergency Visit: Yes ED Registration Date: 03/22/19 Care time: The patient presented to the Emergency Department on the above date and was hospitalized for further evaluation of their emergent condition. Critical Care patient: No - Discharge Referral Referred to [facility] Med P.C.: No
[2019-03-23 14:38] VITALS: BP 147/93; PULSE 53; TEMP 98.5
[2019-03-23] MEDS ORDERED: INSULIN SLIDING SCALE (NOVOLOG) 1 VIAL SQ SCH (16:30)
== END 2019-03-23 16:25 | disposition home or self-care (01) | DRG 390 ==
LOC: JER 11:00 → JERBED 18:41 → J7W 03-23 00:53
PROVIDERS: ADMIT Internal Medicine; ATTEND Internal Medicine
DX: K56.600 Partial intestinal obstruction, unspecified as to cause (principal); I10 Essential (primary) hypertension; E11.9 Type 2 diabetes mellitus without complications; Z79.84 Long term (current) use of oral hypoglycemic drugs; I25.10 Atherosclerotic heart disease of native coronary artery without angina pectoris; E78.5 Hyperlipidemia, unspecified; Z85.038 Personal history of other malignant neoplasm of large intestine; Z90.49 Acquired absence of other specified parts of digestive tract; Z95.5 Presence of coronary angioplasty implant and graft; N40.0 Benign prostatic hyperplasia without lower urinary tract symptoms; E27.9 Disorder of adrenal gland, unspecified
CPT/HCPCS: 36415; 74177-TC; 80053; 81003; 82962; 83036; 83690; 83735; 84100; 85025; 85610; 85730; 86850; 86900; 86901; 99285-25; J7030; Q9967

== ENCOUNTER 2019-07-08 11:00 | Emergency (ER) | payer BC ==
[2019-07-08 11:21] VITALS: TEMP 97.7
--- NOTE | 2019-07-08 11:28 | PDOC ---
History of Present Illness - General Chief Complaint: Chest Pain Stated Complaint: CHEST PAIN/ABDOM Time Seen by Provider: 07/08/19 11:28 History Source: Patient Exam Limitations: No Limitations - History of Present Illness Initial Comments: 07/08/19 11:30 PCP: Elliott Parham Mr. Gardner is a 61 year old male, with PMH of hypertension, hypercholesterolemia, coronary artery disease, diabetes mellitus, benign prostate hyperplasia, colon CA s/p low anterior rectosigmoid colon resection (08/20) at [facility] with Dr. Altamirano and a reversal procedure in by Dr. Saucedo Pt was in his usual state of health until yesterday at 2pm Pt last meal was lunch at noon Pt noted that at 2pm he developed severe abdominal pain Pain is located in the epigastric region, described as sharp, intermittent, radiation to his chest No associated fevers or chills Pt is nauseous He has been vomiting since last night No diarrhea Pt had a small bowel movement Is passing scant flatus Pt also noted that his upper abdomen appears "hard" "firm" Recent Travel: no travel history or sick contacts. PAST MEDICAL HISTORY: Cardiac: hypertension, hypercholesterolemia, coronary artery disease, Endocrine: diabetes mellitus, Renal/: benign prostate hyperplasia Gastrointestinal: recently diagnosed with colon CA s/p low anterior rectosigmoid colon resection (10/14/16) at [facility] PAST SURGICAL HISTORY: - Stent placement x2. - Colon Ca resection (low anterior rectosigmoid colon resection (10/14/16) at [facility]) Social History: Smoking: none Alcohol: Occasional ETOH Drugs: none Family History: - Father in 30's from unknown cause. - Mother and daughter alive and well. Allergies - No Known Allergies Allergy (Verified 10/27/16 12:13) 07/08/19 11:38 ROS: GENERAL/CONSTITUTIONAL: Yes: loss of appetite No: fever, chills, weakness HEAD, EYES, EARS, NOSE AND THROAT: No: change in vision, ear pain, discharge, sore throat, throat swelling. CARDIOVASCULAR: Yes: chest pain No: lightheadedness, palpitations, syncope RESPIRATORY: No: cough, shortness of breath, wheezing GASTROINTESTINAL: Yes: nausea, vomiting, abdominal pain No: diarrhea GENITOURINARY: No: dysuria, hematuria, frequency, urgency, flank pain. MUSCULOSKELETAL: No: back pain SKIN: No: lesions, pallor, rash or easy bruising. NEUROLOGIC: No: headache, vertigo, paresthesias, weakness ENDOCRINE: No: unexplained weight gain or loss HEMATOLOGIC/LYMPHATIC: No: anemia, easy bleeding, swelling nodes. PE: GENERAL: The patient is in no acute distress, pt does appear uncomfortable. HEAD: Normal EYES: PERRLA, EOMI, sclera anicteric, conjunctiva clear. ENT: Ears normal, nares patent, oropharynx clear without exudates. Moist mucous membranes. NECK: Normal range of motion, supple without lymphadenopathy, JVD, or masses. LUNGS: Breath sounds equal, clear to auscultation bilaterally. No wheezes, and no crackles. HEART:Regular rate and rhythm, normal S1 and S2 without murmur, rub or gallop. ABDOMEN: Soft, upper abdominal tender to palpation and appears firm, no lowe abdominal tenderness to palpation, well healed surgical scar EXTREMITIES: Normal range of motion, no edema. NEUROLOGICAL: Cranial nerves II through XII grossly intact. Normal speech. No focal neurological deficits. MUSCULOSKELETAL: Back non-tender to palpation, no CVA tenderness SKIN: Warm, Dry, normal turgor, no rashes or lesions noted. Is this a multiple visit Asthma Patient?: No Past History - Past Medical History Allergies/Adverse Reactions: Allergies Allergy/AdvReac Type Severity Reaction Status Date / Time No Known Allergies Allergy Verified 07/08/19 11:12 Home Medications: Ambulatory Orders Atorvastatin Ca [Lipitor] 40 mg PO HS 03/22/19 Carvedilol [Coreg -] 12.5 mg PO BID 03/22/19 Linaclotide [Linzess] 145 mcg PO DAILY 03/22/19 Tamsulosin HCl [Flomax] 0.4 mg PO DAILY 03/22/19 metFORMIN HCL [Metformin HCl] 850 mg PO BID 03/22/19 Cancer: Yes (COLON CA) Cardiac Disorders: Yes (CAD) COPD: No Diabetes: Yes (METFORMIN) GI Disorders: Yes (COLON CA S/P COLOSTOMY) Disorders: No HTN: Yes Hypercholesterolemia: Yes Liver Disease: No Thyroid Disease: No - Surgical History Abdominal Surgery: Yes (COLON CA RESECTION) Cardiac Surgery: Yes (STENT X 2) - Immunization History Immunization Up to Date: No - Psycho Social/Smoking Cessation Hx Smoking History: Never smoked Have you smoked in the past 12 months: No Hx Alcohol Use: No Drug/Substance Use Hx: No Substance Use Type: Alcohol Hx Substance Use Treatment: No *Physical Exam - Vital Signs Last Vital Signs Temp Pulse Resp BP Pulse Ox 97.7 F 68 18 140/90 98 07/08/19 11:13 07/08/19 11:13 07/08/19 11:13 07/08/19 11:13 07/08/19 11:13 ED Treatment Course - LABORATORY CBC & Chemistry Diagram: 07/08/19 12:20 07/08/19 12:20 Medical Decision Making - Critical Care Time Total Critical Care Time (minutes): 90 Critical Care Statement: The care of this patient involved high complexity decision making to prevent further life threatening deterioration of the patient 's condition and/or to evaluate & treat vital organ system(s) failure or risk of failure. - Medical Decision Making 07/08/19 11:51 64 yo M presenting with a complaint of epigastric pain radiating to the chest DD: ACS, GERD, SBO, Will do: Labs, EKG, CT, IVF, Analgesia Antiemetics Re Assess EKG: Twelve-lead EKG was performed and reviewed by me. There is normal sinus rhythm with a bradycardiac rate of 59 bpm. The axis is normal. The intervals are normal. There are no ST or T wave abnormalities. Impression: Normal twelve-lead EKG 07/08/19 13:10 Laboratory Tests 07/08/19 12:20 WBC 13.5 H Hgb 15.1 Hct 43.8 D Plt Count 309 07/08/19 13:26 Laboratory Tests 07/08/19 07/08/19 07/08/19 12:20 12:20 12:20 Sodium 133 L Potassium 3.9 Chloride 95 L Carbon Dioxide 27 BUN 18.6 H Creatinine 1.0 Random Glucose 204 H Creatine Kinase 78 Troponin I < 0.02 Total Amylase [address] 07/08/19 16:[address] Saucedo's prior surgical group Awaiting call back 07/08/19 16:[address] Rojas Pt accepted for transfer to [facility] She requests repeat Lactic acid NGT to be placed Clinical Impression: SBO, initial presentation 07/08/19 16:40 07/08/19 17:57 Laboratory Tests 07/08/19 16:45 Lactic Acid 1.9 Clinical impression: SBO, initial presentation small bowel herniation at site of prior ostomy, repeat presentation Dehydration --> corrected, initial presentation Discharge - Discharge Information Problems reviewed: Yes Clinical Impression/Diagnosis: SBO (small bowel obstruction) Condition: Stable Disposition: TRANSFER ACUTE CARE/OTHER HOSP - Admission No - Additional Discharge Information Prescription Drug Monitoring Program (I-STOP) results: I-STOP not reviewed - Follow up/Referral Referrals: Elliott Parham [Primary Care Provider] - - Patient Discharge Instructions - Post Discharge Activity - Transfer to Acute Care Facility Receiving Facility Name: [facility] Accepting Physician:: Dr. Rojas
[2019-07-08] MEDS ORDERED: morphine CARPU-JECT 4 MG/1 ML DISP.SYRIN IVPUSH ONE ×3 (11:37→17:57)
[2019-07-08] MEDS ORDERED: SODIUM CHLORIDE 1,000 ML IV STA ×2 (11:37→14:41)
[2019-07-08] MEDS ORDERED: ONDANSETRON 4 MG/2 ML VIAL IVPUSH ONE ×2 (11:37→14:41)
[2019-07-08] MEDS ORDERED: morphine SULFATE 4 MG/ML VIAL ONE ×3 (12:17→18:19)
[2019-07-08] MEDS ORDERED: ONDANSETRON 4 MG/2 ML VIAL ONE ×2 (12:18→14:55)
[2019-07-08 12:54] LABS: BASO % 0.2 % (0-2.0); EOS % 0.1 % (0-4.5); HEMATOCRIT 43.8 % (35.4-49); HEMOGLOBIN 15.1 GM/dL (11.7-16.9); LYMPH % 11.6 % (8-40); MCH 28.3 pg (25.7-33.7); MCHC 34.4 g/dl (32.0-35.9); MEAN CELL VOLUME 82.5 fl (80-96); MEAN PLT VOLUME 8.4 fl (7.5-11.1); MONO % 9.2 % (3.8-10.2); NEUT % 78.9 % (42.8-82.8); PLATELET COUNT 309 K/MM3 (134-434); RBC 5.32 M/mm3 (4.00-5.60); RDW 14.4 % (11.9-15.9); WHITE BLOOD COUNT 13.5 K/mm3 (4.0-10.0)
[2019-07-08 13:16] LABS: ALBUMIN 3.9 g/dl (3.4-5.0); BLOOD UREA NITROGEN 18.6 mg/dL (7-18); CALCIUM 8.9 mg/dL (8.5-10.1); MAGNESIUM 1.6 mg/dL (1.8-2.4); N-TERMINAL BNP 83.5 pg/ml (5-125); PHOSPHOROUS 3.4 mg/dL (2.5-4.9); POTASSIUM 3.9 mmol/L (3.5-5.1); TOT PROT 7.8 g/dl (6.4-8.2)
[2019-07-08] MEDS ORDERED: LIDOCAINE HCL 2% JELLY (30 ML/TUBE) TP ONE (17:03)
[2019-07-08] MEDS ORDERED: LIDOCAINE HCL 2% JELLY 10 ML CARTRIDGE ONE (17:04)
[2019-07-08] MEDS ORDERED: TETRACAINE/BENZOCAINE/BUTAMBEN 20 GM SPR TP ONE (17:04)
[2019-07-08] MEDS ORDERED: LIDOCAINE HCL 2% JELLY (5 ML/TUBE) ONE (17:05)
[2019-07-08 18:51] VITALS: BP 159/103; PULSE 77
--- NOTE | 2019-07-10 10:29 | EKG ---
Test Reason : Blood Pressure : / mmHG Vent. Rate : 059 BPM Atrial Rate : 059 BPM P-R Int : 144 ms QRS Dur : 082 ms QT Int : 438 ms P-R-T Axes : 048 031 071 degrees QTc Int : 433 ms SINUS BRADYCARDIA ANTERIOR INFARCT , AGE UNDETERMINED ABNORMAL ECG WHEN COMPARED WITH ECG OF 28-OCT-2016 10:47, VENT. RATE HAS DECREASED BY 33 BPM T WAVE VARIATION Confirmed by EDUARD MUÑIZ, DOMENIC ([id number]) on 07/10/2019 10:28:44 AM Referred By: Confirmed By:DOMENIC CHAPA MD
== END 2019-07-08 18:52 | disposition short-term general hospital (02) ==
LOC: JER 11:00
PROC: 3E0337Z Introduction of Electrolytic and Water Balance Substance into Peripheral Vein, Percutaneous Approach (ICD-10-PCS; principal; 2019-07-08)
PROC: 3E033NZ Introduction of Analgesics, Hypnotics, Sedatives into Peripheral Vein, Percutaneous Approach (ICD-10-PCS; 2019-07-08)
PROC: 3E033GC Introduction of Other Therapeutic Substance into Peripheral Vein, Percutaneous Approach (ICD-10-PCS; 2019-07-08)
DX: K56.699 Other intestinal obstruction unspecified as to partial versus complete obstruction (principal); I25.10 Atherosclerotic heart disease of native coronary artery without angina pectoris; I10 Essential (primary) hypertension; Z95.5 Presence of coronary angioplasty implant and graft; E11.9 Type 2 diabetes mellitus without complications; Z79.84 Long term (current) use of oral hypoglycemic drugs; E78.00 Pure hypercholesterolemia, unspecified; N40.0 Benign prostatic hyperplasia without lower urinary tract symptoms; Z85.038 Personal history of other malignant neoplasm of large intestine; Z90.49 Acquired absence of other specified parts of digestive tract
CPT/HCPCS: 36415; 71045-TC-FY; 74177-TC; 80053; 82150; 82550; 83605; 83690; 83735; 83880; 84100; 84484; 85025; 93005; 93010; 99284-25; J7030

== ENCOUNTER 2023-05-30 11:31 | Emergency (ER) | payer BC, OTHER ==
[2023-05-30 11:38] VITALS: BP 152/81; PULSE 51; RESP 18; TEMP 97.9; BMI 25.0
[2023-05-30] MEDS ORDERED: ACETAMINOPHEN 500 MG TABLET (FP) PO ONE (12:24)
[2023-05-30] MEDS ORDERED: LIDOCAINE 5% TOPICAL PATCH TP ONE (12:24)
[2023-05-30] MEDS ORDERED: CYCLOBENZAPRINE HCL 10 MG TABLET (FP) PO ONE ×2 (12:24→12:44)
[2023-05-30] MEDS: IBUPROFEN 600 MG TABLET (FP) PO ONE ×2 (12:43→12:45)
[2023-05-30] MEDS ORDERED: predniSONE 20 MG TABLET (UD) PO ONE (12:44)
[2023-05-30] MEDS ORDERED: CYCLOBENZAPRINE HCL 10 MG TABLET (FP) ONE (12:47)
[2023-05-30] MEDS ORDERED: predniSONE 20 MG TABLET (UD) ONE (12:48)
[2023-05-30] MEDS ORDERED: ACETAMINOPHEN 500 MG TABLET (FP) ONE (12:48)
[2023-05-30] MEDS ORDERED: LIDOCAINE PATCH REMOVAL MC SCH (22:00)
== END 2023-05-30 13:01 | disposition home or self-care (01) ==
LOC: JERFT 11:31
DX: M54.50 Low back pain, unspecified (principal)
CPT/HCPCS: 99283-25